=== PATIENT | male | born 1955 | race Caucasian/White ===

== ENCOUNTER → 2017-12-07 09:58 | Outpatient (CLI) | payer BC, SELFPAY ==
[2017-12-07 12:08] LABS: Hematocrit 38.4 % (40-54); Hemoglobin 12.4 g/dl (13.0-16.5); Mean Corp Hgb Conc 32.3 g/gl (32-36); Mean Corpuscular Hgb 28.9 pg (27.0-32.0); Mean Corpuscular Volume 89.5 fL (80-94); Mean Platelet Vol. 12.4 fl (6.2-12.0); Platelet Count 174 K/mm3 (150-450); RBC Distribution Width SD 45.2 fl (35.1-43.9); Red Blood Count 4.29 M/mm3 (4.6-6.2); White Blood Count 8.4 K/mm3 (4.4-11.0)
[2017-12-07 12:09] LABS: Scan Indicated on CBC? Y/N NO
[2017-12-07 12:32] LABS: ALB/GLOB Ratio 0.9 RATIO (0.9-2.4); AST(SGOT) 15 U/L (15-37); Alanine Aminotransfer ALT/SGPT 18 U/L (16-61); Albumin, Serum 3.6 g/dL (3.2-5.0); Alkaline Phosphatase 100 U/L (45-117); Anion Gap 6 (5-15); BUN 18 mg/dL (7-18); BUN/Creat Ratio 14.8 RATIO (10-20); Chloride 108 mmol/L (98-107); Cholesterol 121 mg/dL (200); Creatinine, Serum 1.22 mg/dL (0.70-1.30); EST Glomerular Filtration Rate 64 mL/min (>60); Est Glom Filt Rate - Afr Amer 77 mL/min (>60); Globulin 3.9 g/dL (2.2-4.2); Glucose 102 mg/dL (74-106); High Density Lipoprotein 29 mg/dL; PSA,Total - Annual Screen 0.93 ng/mL (0.00-4.00); Potassium 4.1 mmol/L (3.5-5.1); Protein, Total 7.5 g/dL (6.4-8.2); Sodium Level 140 mmol/L (136-145); T4 Free Direct 0.96 ng/dL (0.76-1.46); Thyroid Stim Hormone (TSH) 2.19 uIU/mL (0.358-3.74); Triglycerides 105 mg/dL; Very Low Density Lipoprotein 21 mg/dL (5-40)
== END ==
PROVIDERS: Family Provider Family Medicine; PCP Family Medicine; Visit Provider Family Medicine
DX: R94.6 Abnormal results of thyroid function studies (principal); I25.10 Atherosclerotic heart disease of native coronary artery without angina pectoris; N40.0 Benign prostatic hyperplasia without lower urinary tract symptoms; Z12.5 Encounter for screening for malignant neoplasm of prostate
CPT/HCPCS: 36415; 80053; 80061; 84153; 84439; 84443; 85027; G0103

== ENCOUNTER → 2017-12-24 16:51 | Outpatient (CLI) | payer BC, SELFPAY ==
--- NOTE | 2017-12-24 16:53 | CT_ITS ---
STUDY: CT ABDOMEN WITH CONTRAST REASON FOR EXAM: Male, 62 years old. Abdominal aortic aneurysm follow up, tobacco use, hypertension, prior CABG. RADIATION DOSAGE (If Supplied By Facility): CTDIvol = ( 7.67 ) mGy, DLP = ( 492.58 ) mGycm TECHNIQUE: Transaxial images were obtained post I.V. administration of 100mL ml of Isovue 300 contrast, and oral contrast. Sagittal and coronal images were reconstructed. Individualized dose optimization techniques were used for this CT. COMPARISON: 02/25/2016 FINDINGS: The visualized lung bases are unremarkable. The visualized portions of the heart are within normal limits. Normal liver. The gallbladder is contracted. Normal spleen. Normal pancreas. Normal bilateral adrenal glands. There is a small right renal mass measures 1.4 cm at the posterior aspect of the middle part of the right kidney may represent a neoplastic process. There is a left renal cyst measures 3.5 cm. Normal visualized stomach. Normal small intestine. Normal colon. The appendix is visualized and appears normal. There is diffuse atherosclerotic calcification of the abdominal aorta with elongation and tortuosity, there is an aortic aneurysm involving the entire abdominal aorta the suprarenal aorta measures approximately 5.2 cm in diameter. The infrarenal abdominal aorta measures approximately 4.7 cm in diameter it has increased in size since the previous study it measured previously 4.4 cm in diameter. There is right common iliac artery aneurysm measures 2.5 cm in diameter. Normal inferior vena cava. Normal retroperitoneum. Normal abdominal wall. Normal osseous structures. CT/Abdomen WITH IV Contrast IMPRESSION: There is a small right renal mass measures 1.4 cm at the posterior aspect of the middle part of the right kidney may represent a neoplastic process. There is an aortic aneurysm involving the entire abdominal aorta the suprarenal aorta measures approximately 5.2 cm in diameter. The infrarenal abdominal aorta measures approximately 4.7 cm in diameter it has increased in size since the previous study it measured previously 4.4 cm in diameter. There is right common iliac artery aneurysm measures 2.5 cm in diameter. Electronically Signed: Kimberly Echavarria MD at 7:43 EDT Tel , Service support ,
--- NOTE | 2017-12-24 16:53 | CT_ITS ---
STUDY: LOW DOSE CT LUNG CANCER SCREENING REASON FOR EXAM: Male, 62 years old. Long history of smoking. Hypertension. Abdominal aortic aneurysm RADIATION DOSAGE (If Supplied By Facility): CTDIvol = ( 3.02 ) mGy, DLP = ( 119.28 ) mGycm TECHNIQUE: No contrast was administered. Low dose technique was utilized (average mAS-38 and kVp 120). 1.25 mm axial source images with a slice interval of 1.25-mm were reconstructed in lung windows. 2.5 mm axial source images with a slice interval of 2.5-mm were reconstructed in lung windows. 5.0 mm axial source images with a slice interval of 5.0-mm were reconstructed in soft tissue windows. Nodule measured using lung windows on PACS and/or independent workstation with automated measurement of minimum and maximum diameter. Nodule measurement reported as average diameter rounded to the nearest whole number. Growth is defined as an increase ins size of greater than 1.5 mm. COMPARISON: None. NODULES: Multiple bilateral lung nodules are noted the largest measures 6 cm is in the lateral segment of the left lung lower lobe non of these nodules are calcified they most likely represent granulomas. There is no demonstrated pleural abnormality. Normal heart and pericardium. Normal mediastinum. Normal hilar regions. Normal unenhanced pulmonary arteries. Ascending aorta aneurysm measures 5.6 cm in diameter. Normal osseous structures. Suspicious mass in the right kidney measures 1.4 cm for which further evaluation by MRI is recommended. CT/Low Dose CT Lung Screening IMPRESSION: Lung-RADS category 3. Suspicious mass in the right kidney measures 1.4 cm for which further evaluation by MRI is recommended. Recommendation: Short-term follow-up in 6 months is recommended of the lung nodules. IMPORTANT NOTES FOR USE: ACR Lung-RADS Version 1.0 Assessment Categories Release Date: August 11, 2013 Category: Coded 0-4 bases on nodule(s) with highest degree of suspicion. Negative screen is defined as categories 1 and 2; a positive screen is defined as categories 3 and 4. Category 3 and 4A nodules that are unchanged on interval CT should be coded as category 2, and individuals returned to screening in 12 months. Category 4X: Category 3 or 4 nodules with additional imaging findings that increase the suspicion of lung cancer, such as spiculation, GGN that doubles in size in 1 year, enlarged lymph notes, etc. Category Modifiers: S (significant finding unrelated to lung cancer) and C (prior history of treated lung cancer) may be added to the 0-4 Lung-RADS Electronically Signed: Kimberly Echavarria MD at 8:10 EDT Tel , Service support ,
--- NOTE | 2017-12-24 16:53 | CT_ITS ---
STUDY: CT CHEST WITH CONTRAST REASON FOR EXAM: Male, 62 years old. Abdominal aortic aneurysm follow up, tobacco use, prior CABG, hx hypertension. RADIATION DOSAGE (If Supplied By Facility): CTDIvol = ( 7.67 ) mGy, DLP = ( 492.58 ) mGycm TECHNIQUE: Transaxial imaging was performed following intravenous administration of 100mL ml of Isovue 300 contrast material. Individualized dose optimization techniques were used for this CT. COMPARISON: 02/25/2016 and 05/11/2014 FINDINGS: Bilateral lung nodules are noted the largest is a subpleural nodule in the lateral basal segment of left lung lower lobe measures 6 mm have nonspecific appearance most likely represent benign granulomas. Follow-up in 6 months would be recommended to ensure stability. There is no demonstrated pleural abnormality. Normal heart and pericardium. Normal mediastinum. Normal hilar regions. Normal enhanced pulmonary arteries. There is an ascending aortic aneurysm measures 6 cm in diameter. Normal osseous structures. There is no demonstrated abnormality of the visualized upper abdomen. CT/Chest WITH Contrast IMPRESSION: There is an ascending aortic aneurysm measures 6 cm in diameter. Small bilateral lung nodules most likely represent benign granulomas. A follow-up in 6 months would be recommended to ensure stability. Electronically Signed: Kimberly Echavarria MD at 4:32 EDT Tel , Service support ,
== END ==
PROVIDERS: Family Provider Family Medicine; PCP Family Medicine; Visit Provider Family Medicine
DX: Z12.2 Encounter for screening for malignant neoplasm of respiratory organs (principal); F17.200 Nicotine dependence, unspecified, uncomplicated; Z87.891 Personal history of nicotine dependence; I71.4 Abdominal aortic aneurysm, without rupture
CPT/HCPCS: 71260; 74160; G0297; Q9967

== ENCOUNTER → 2018-07-08 14:52 | Outpatient (CLI) | payer BC, SELFPAY ==
--- NOTE | 2018-07-08 15:00 | CT_ITS ---
STUDY: CT CHEST WITH CONTRAST REASON FOR EXAM: Male, 62 years old. Abdominal aortic aneurysm. History of CABG, gallbladder and hernia repair. No signs and symptoms of the chest were provided. RADIATION DOSAGE (If Supplied By Facility): CTDIvol = ( 16.45 ) mGy, DLP = ( 935.47 ) mGycm TECHNIQUE: Transaxial imaging was performed following intravenous administration of 100ML IV Isovue 300. Coronal and sagittal reconstructions were performed. Individualized dose optimization techniques were used for this CT. COMPARISON: 12/24/2017. FINDINGS: Curvilinear scarring in the left lung base. Minimal subsegmental atelectasis in the right posterior lung base. No suspicious pulmonary nodules or infiltrates. There is no demonstrated pleural abnormality. Normal cardiac size. No pericardial fluid. Normal mediastinum. Normal hilar regions. Normal enhanced pulmonary arteries. Aneurysmal dilatation of the ascending aorta and descending thoracic aorta. Mild tortuosity of the thoracic descending thoracic aorta. The ascending aorta has a diameter of 6.1 cm. The descending thoracic aorta has a diameter of 4.8 cm. No thoracic aortic dissection. Normal osseous structures. Abdominal aortic aneurysm with a diameter of up 4.9 cm. Hypodense cysts in both kidneys. IMPRESSION: 1. Aneurysmal dilatations of the thoracic aorta and down to the abdominal aorta. This is unchanged when compared to 12/24/2017. 2. Minimal subsegmental atelectases in the right posterior lung base and minimal curvilinear scarring in the left lung base. 3. No CT evidence of thoracic aortic dissection. 4. No acute chest abnormality and no interval changes when compared to 12/24/2017. Electronically Signed: Tobias Hogan MD at 10:07 EDT , Service support , STUDY: CT ABDOMEN AND PELVIS WITH CONTRAST REASON FOR EXAM: Male, 62 years old. Abdominal aortic aneurysm. History of CABG, gallbladder and hernia repair. RADIATION DOSAGE (If Supplied By Facility): CTDIvol = ( 12.95 ) mGy, DLP = ( 935.47 ) mGycm TECHNIQUE: Transaxial images were obtained from the dome of the diaphragm to the symphysis pubis without oral contrast. 100ML IV Isovue 300 was administered. Sagittal and coronal images were reconstructed. Individualized dose optimization techniques were used for this CT. COMPARISON: CT abdomen with contrast 12/24/2017. No prior CT pelvis for comparison. FINDINGS: Minimal subsegmental atelectasis in the right posterior lung base. Curvilinear scarring in the medial aspect of the left posterior lung base. These are unchanged. Normal cardiac size. No pericardial fluid. Normal liver. Postsurgical absence of the gallbladder. Normal spleen. Normal pancreas. Normal bilateral adrenal glands. Right kidney: Small posterior hypodense cyst. No stones or hydronephrosis. Left kidney: 3.1 x 2.3 cm hypodense cyst in the lateral parenchyma of the left kidney. No stones or hydronephrosis. Normal visualized stomach. Normal small intestine. Solitary diverticulum in the lower descending colon without diverticulitis. The appendix is visualized and appears normal. Aneurysmal dilatation of the abdominal aorta. The transverse diameter of the abdominal aortic aneurysm at the level of the left renal artery origin is 5.6 cm. This includes the intramural thrombus in the right lateral wall of the abdominal aortic aneurysm. The transverse canal diameter of the infrarenal abdominal aortic aneurysm is 4.2 cm. This includes the intramural thrombus in the right lateral wall of the abdominal aortic aneurysm. Aneurysmal dilatation of the right common iliac artery with a diameter of 2.2 cm. No aortic dissection. Normal inferior vena cava. Normal retroperitoneum. Normal urinary bladder. Normal abdominal wall. Normal osseous structures. CT/Abdomen/Pelvis WITH Contrast IMPRESSION: 1. Abdominal aortic aneurysm with a transverse canal diameter at the level of the left renal artery origin of 5.6 cm. This includes the intramural thrombus in the right lateral wall of the abdominal aortic aneurysm. 2. Infrarenal abdominal aortic aneurysm with a transverse canal diameter of 4.2 cm. This includes the intramural thrombus in the right lateral wall of the abdominal aortic aneurysm. 3. Right common iliac artery aneurysm with a diameter of 2.[address] evidence of abdominal aortic dissection. 5. Solitary diverticulum in the lower descending colon without diverticulitis. 6. No significant interval change when compared to CT of the abdomen dated 12/24/2017. Electronically Signed: Tobias Hogan MD at 10:17 EDT , Service support ,
[2018-07-08 15:21] LABS: CREATININE FINGERSTICK 1.6 mg/dL (0.70-1.30)
== END ==
PROVIDERS: Family Provider Family Medicine; PCP Family Medicine; Referring Provider Family Medicine; Visit Provider Family Medicine
DX: I71.4 Abdominal aortic aneurysm, without rupture (principal); R91.8 Other nonspecific abnormal finding of lung field
CPT/HCPCS: 71260; 74177; Q9967

== ENCOUNTER 2018-12-21 08:38 | Emergency (ER) | payer BC, SELFPAY ==
[2018-12-21 08:40] VITALS: BP 121/65; PULSE 93; RESP 17; TEMP 36.4; O2SAT 95; BMI 25.8
--- NOTE | 2018-12-21 09:00 | EKG12_ITS ---
Test Reason : DYSRHYTHMIA Blood Pressure : / mmHG Vent. Rate : 089 BPM Atrial Rate : 089 BPM P-R Int : 174 ms QRS Dur : 144 ms QT Int : 428 ms P-R-T Axes : 026 020 060 degrees QTc Int : 520 ms Normal sinus rhythm Right bundle branch block Abnormal ECG Confirmed by JOSÉ HERNANDEZ ([id number]), supervising editor news reel TROY PEREZ ([id number]) on 12/30/2018 2:33:02 PM Referred By: TACO Confirmed By:JOSÉ HERNANDEZ
--- NOTE | 2018-12-21 09:01 | CT_ITS ---
We are attempting to reach an attending provider to discuss findings. An addendum with communication details will be sent when the communication is complete. STUDY: CT CHEST WITH CONTRAST REASON FOR EXAM: Male, 63 years old. Status post CABG, sternotomy dehiscence with purulent discharge. RADIATION DOSAGE (If Supplied By Facility): CTDIvol = ( 15.64 ) mGy, DLP = ( 565.15 ) mGycm TECHNIQUE: Transaxial imaging was performed following intravenous administration of 100 IV Isovue 300. Individualized dose optimization techniques were used for this CT. COMPARISON: 07/08/2018. FINDINGS: There is small tiny left apical pneumothorax. There is an infiltrate/atelectasis in the left lower lobe. There are atelectatic changes in the right lower lobe. There is small to moderate left pleural effusion. Sternal cerclage wires and vascular clips are present from a prior sternotomy and coronary artery bypass graft procedure (CABG). There is fluid in the anterior mediastinum are pockets of air in the anterior mediastinum. Normal hilar regions. Normal enhanced pulmonary arteries. There is an endoluminal aortic stent extending from the proximal aortic arch to the proximal descending thoracic aorta. There is an aneurysm of the descending thoracic aorta extending to the proximal abdominal aorta with maximum AP diameter of 5.4 cm just distal to the stent. The distal aspect of the aneurysm in the region of the abdomen is not included on this exam. There is increased density seen around the proximal abdominal aorta unchanged since the prior exam. There is increased kyphosis of the thoracic spine and mild degenerative changes. The visualized portions of the upper abdomen demonstrate otherwise partially visualized left renal cyst. CT/Chest WITH Contrast IMPRESSION: 1. Small tiny left apical pneumothorax. 2. Increased density and fluid in the anterior mediastinum with multiple pockets of air extending around the ascending thoracic aorta. In the absence of history of recent intervention, the findings are consistent with infectious process. Early abscess formation cannot be entirely excluded. 3. Status post placement of endoluminal aortic stent placement as described above. 4. Aneurysm of the descending thoracic aorta and proximal abdominal aorta essentially unchanged. 5. Mild left lower lobe infiltrate/atelectasis. 6. Moderate left pleural effusion. Electronically Signed: Damien Mora MD at 10:23 EDT Tel , Service support ,
--- NOTE | 2018-12-21 09:16 | ED.DCSUM_ITS ---
History of Present Illness Chief Complaint: Wound Check Narrative: Patient presenting due to concern for a wound infection. Patient was at [facility] the end of November for a thoracic aortic aneurysm repair. Patient states that he was discharged 2 days ago. He reports that he has been on some oral antibiotics for a potential superficial wound infection, but today he had dehiscence of the wound and a significant amount of drainage. Patient denies that there is a significant amount of pain associated with this, denies measurable fevers. Patient's daughter states that she has been carefully monitoring his temperature and he has not had any sort of febrile episodes. No nausea vomiting. Drainage is profuse and has no exacerbating relieving factors. Review of systems otherwise negative. Surgeon Dr. Carlin Past Medical History - Allergies and Home Meds Allergies/Adverse Reactions: Allergies codeine Allergy (Verified 12/21/18 08:39) Vomiting Past Medical History: - - Thoracic aortic aneurysm with recent repair Smoking Status: Former smoker Review of Systems All systems negative except as indicated General: Denies: Fever Cardiovascular: Reports: - - Chest wound dehiscence and drainage Gastrointestinal: Denies: Nausea, Vomiting Physical Exam Vital Signs/Narrative: Vital Signs Temp Pulse Resp BP Pulse Ox 12/21/18 08:40 97.6 F L 93 17 121/65 H 95 Inital Vital Signs reviewed: Yes General: Well nourished, Well developed, - - Pale and in no acute distress Head: Normocephalic, Atraumatic Eyes: Perrl, EOMI ENT: Moist mucous membranes, No rhinorrhea Neck: Supple, Nontender Cardiovascular: Regular rate, Regular rhythm, No murmurs Respiratory: No distress, CTA bilaterally, - - Examination of the patient's anterior chest shows approximately 2 to 3 cm of dehiscence of the superior portion of the patient's sternotomy wound with what appears to be bloody purulent drainage. Minimal tenderness to palpation in this area. Abdomen: Soft, Nontender, Nondistended, Normal bowel sounds Back: Nontender, Normal Inspection Extremities: Nontender Skin: Normal color, No rash Neurological: Alert, Oriented x3, Cranial nerves II-XII grossly intact, Normal Strength, Normal Sensation Psychological: Normal affect, Normal Mood Diagnostic/Tx/Re-eval - EKG Initial EKG Interpretation: - - Right bundle branch block with ventricular rate of [address] segments normal T waves no evidence of acute ischemia or arrhythmia. - Medical Decision Making Patient presented secondary to drainage from the surgical wound. IV was established labs were obtained. Patient was found to have a leukocytosis. Chemistry panel is grossly unremarkable, no lactic acidosis. CT scan of the chest was obtained with IV contrast which radiology called me and informed me that the patient appears to have evidence of a deep space surgical wound infection with mediastinitis and free air with a small apical pneumothorax. As these wounds often require operative cleanout, I contacted the facility with the patient had the surgery, the [facility], they did accept patient in transfer. Cultures were obtained patient was started on vancomycin and Zosyn at the recommendation of the [facility] physician and the patient was transferred. ED Disposition - Plan for ED Patient: Disposition: Acute Care Hospital - Other Diagnosis: deep sternal wound infection, Surgical wound infection
[2018-12-21 09:24] LABS: Hematocrit 28.6 % (40-54); Hemoglobin 9.2 g/dL (13.0-16.5); Mean Corp Hgb Conc 32.2 g/dL (32-36); Mean Corpuscular Hgb 29.4 pg (27.0-32.0); Mean Corpuscular Volume 91.4 fL (80-94); POSITIVE DIFFERENTIAL YES; Platelet Count 334 K/mm3 (150-450); RBC Distribution Width CV 14.1 % (11.6-14.6); RBC Distribution Width SD 46.7 fl (35.1-43.9); Red Blood Count 3.13 M/mm3 (4.6-6.2)
[2018-12-21 09:32] LABS: International Normalized Ratio 1.2; Prothrombin Time (Protime)PT. 15.2 SECONDS (11.7-14.9)
[2018-12-21 09:33] LABS: Partial Thromboplast Time 33.1 Seconds (24.1-36.2)
[2018-12-21 09:42] LABS: ALB/GLOB Ratio 0.6 RATIO (0.9-2.4); AST(SGOT) 41 U/L (15-37); Alanine Aminotransfer ALT/SGPT 43 U/L (16-61); Albumin, Serum 2.7 g/dL (3.2-5.0); Alkaline Phosphatase 81 U/L (45-117); Anion Gap 3 (5-15); BUN 23 mg/dL (7-18); BUN/Creat Ratio 18.4 RATIO (10-20); Calcium,Total 8.6 mg/dL (8.5-10.1); Chloride 105 mmol/L (98-107); Creatinine, Serum 1.25 mg/dL (0.70-1.30); EST Glomerular Filtration Rate 62 mL/min (>60); Est Glom Filt Rate - Afr Amer 75 mL/min (>60); Estimated Creatinine Clearance 60.83 ml/min; Globulin 4.2 g/dL (2.2-4.2); Glucose 122 mg/dL (74-106); Potassium 4.2 mmol/L (3.5-5.1); Protein, Total 6.9 g/dL (6.4-8.2); Sodium Level 135 mmol/L (136-145)
[2018-12-21 09:44] LABS: Differential Indicated MANUAL DIFF
[2018-12-21 09:47] LABS: Eosinophil 5 % (0-5); Lymphocyte 5 % (19-41); Metamyelocyte 1 % (0-1); Monocyte 7 % (0-10); Myelocyte 4 (0-0); Neutrophil-Segmented 78 % (47-70); Total Cells Counted 100 (MANUAL DIFF); Toxic Granulation 1+
[2018-12-21 09:48] LABS: Platelet Estimate ADEQUATE (ADEQ); Red Cell Morphology NORM C+C NORMAL (NORM C&C)
[2018-12-21 09:49] LABS: Absolute Lymphocyte Count 0.75 X10^3/uL (0.83-4.51); Absolute Neutrophil Count 11.7 X10^3/uL (2.0-7.7)
[2018-12-21 09:51] LABS: Lactic Acid 0.9 mmol/L (0.4-2.0)
[2018-12-21 10:07] VITALS: TEMP 37.1
[2018-12-21 10:42] VITALS: O2SAT 95
[2018-12-21 10:43] VITALS: BP 125/69; PULSE 85; RESP 23; O2SAT 97
[2018-12-21 11:18] VITALS: BP 128/78; PULSE 88; RESP 22; O2SAT 99
[2018-12-21 12:18] VITALS: BP 134/80; PULSE 84; RESP 21; TEMP 37.2; O2SAT 97
[2018-12-23 13:26] LABS: Pathologist Review Reviewed
== END 2018-12-21 13:25 | disposition short-term general hospital (02) ==
PROVIDERS: Emergency Provider Emergency Medicine; Family Provider Family Medicine; PCP Family Medicine
DX: T81.42XA Infection following a procedure, deep incisional surgical site, initial encounter (principal); Z87.891 Personal history of nicotine dependence; D72.829 Elevated white blood cell count, unspecified
CPT/HCPCS: 36415; 71260; 80053; 83605; 85025; 85610; 85730; 87040; 87070; 87077; 87186; 87205; 93005; 96365; 96367; 99285; J7040; Q9967; A4216

== ENCOUNTER → 2019-02-20 | Outpatient (CLI) | payer BC, SELFPAY ==
--- NOTE | 2019-02-20 11:43 | CR.HP_ITS ---
CR - History & Physical - General Arrival date:: 02/20/19 Arrival time:: 11:30 Date of Referral:: 12/10/18 Date of CR Evaluation:: 02/20/19 Referring Physician: DR HERNANDEZ Primary Diagnosis: CABG - History of Present Cardiac Event Onset Date: Enter Onset Date of cardiac illnesses in Comment field below Current stable Angina Pectoris:: No Acute Myocardial Infarction within 12 months:: No Coronary Artery Bypass Graft:: Yes - CABG X1 Heart valve replacement or repair:: Yes - AV REPLACEMENT PTCA or coronary stenting:: Yes Heart or Heart-Lung Transplant:: No Heart Failure EF <35%:: No Type of Symptoms:: NONE Interventions with present event:: CABG, AV REPLACMENT, ANUERYSM REPAIR Were there any complications?: POST OP STAFF INFECTION - Medications Home Medications: Ambulatory Orders Medication Instructions Recorded Hydrocodone/Acetaminophen [Vicodin 1 - 2 tab PO Q6H PRN PRN 12/21/18 5-300 mg Tablet] Lovastatin 10 mg PO QHS 12/21/18 Multivit-Min/FA/Lycopen/Lutein 1 ea PO DAILY 12/21/18 [Centrum Silver Men Tablet] Nitroglycerin (INPATIENT USE) 0.4 mg SUBLINGUAL Q5M PRN 12/21/18 [Nitrostat] aspirin 81 mg tablet,delayed 162 mg PO DAILY tab 01/13/19 release docusate sodium 100 mg capsule 100 mg PO DAILY 01/14/19 amiodarone 200 mg tablet 200 mg PO DAILY #90 tab 01/31/19 metoprolol succinate ER 25 mg 75 mg PO DAILY #270 tab 01/31/19 tablet,extended release 24 hr - Allergies Allergies/Adverse Reactions: Allergies codeine Allergy (Verified 01/14/19 13:49) Vomiting - Sleep Disorder Evaluation Hx of Sleep Apnea: No Do you snore loudly (louder than talking or can be heard through closed doors)?: No Do you often feel tired/ fatigued/ sleepy during daytime?: No Has anyone observed you stop breathing during sleep?: No History of Hypertension (for STOP score): Yes STOP Results: Negative Advanced Directives - Advanced Directives Power of Last Trimmer: Yes Living Will: Yes Advance Directives Information Provided: Yes - PT STATES HE HAS ADV DIRECTIVES ENCOURAGED TO BRING IN COPY TO [facility] RECORDS Advance Directives on File: No - PT IS NOT SURE DNR Order?:: No Past Medical History - Past Medical Illness Medical History: Past Medical History (Last Updated 01/14/19 @ 13:51 by Cheri Haji) Postoperative infection of wound of sternum (Acute) T81.49XA Pneumothorax on left (Acute) Onset Date: 12/09/18 J93.9 Postop 12/09/18 post CABG X1 and Aneurysm repair, aortic root replacement, etc. H/O ventricular fibrillation (Chronic) Onset Date: 12/09/18 Z86.79 post op 12/09/2018: it went away when balloon pump repositioned. 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 Evan Wiley, [facility]:SULLIVAN to LAD, Free VIKA to OM branch of CX; SVG to diagonal branch of LAD History of left heart catheterization (Chronic) Onset Date: 12/06/18 Z98.890 12/05/[address] Evan Wiley [facility];12/06/2018 [facility] S/P cholecystectomy (Acute) Z90.49 05/03/2017 H/O right inguinal hernia repair (Acute) Z98.890, Z87.19 History of tonsillectomy (Acute) Z98.890, Z90.89 History of aortic aneurysm repair Onset Date: 12/09/18 Z98.890, Z86.79 Right Ax cannulation, Redo Biobentall CE 27, replacement of ascending aorta and hemiarch with 30 valsalva graft, FET, Viabahn in left carotid, left SCA, CABG X 1 (SVG to PLV); Right femoral IABP insertion through cutdown per Dr. Dangelo Carlin @ [facility] Main Camput 12/09/2018 - Family History Summary Family History: Family History (Last Reviewed 01/14/19 @ 13:34 by Cheri Haji) Mother Cancer Father Heart disease Sister Heart disease Social History - Smoking History Smoking Status: Former smoker Years Smokin Packs Smoked per Day: 1 Hx Smoking Cessation Date: 12/05/15 Hx Tobacco Use: Yes - Alcohol Use Alcohol Usage: Yes - ALMOST NEVER - Substance Abuse Hx Substance Use: No - Occupation Occupation (List type of work in comments):: Employed Hours worked per day:: 10 - Hobbies, Recreation, Social Activities Hobbies: None - NONE AT THIS POINT USUALLY [employer] Recreational Activities: I cannot do any recreational activities at all Social Environment - Status Marital Status: Single - Current Living Arrangements Living Environment:: Family - YOUNGEST DAUGHTER LIVES WITH PT - Children How many children do you have?: 3 Do any of your children live nearby?: Yes - Safety Do you feel safe in your surroundings?: Yes - Assistance Do you need any assistance at home?: NONE Review of Systems - Review of Systems Hints: Right click = Denies ([place]ash). Left click = Reports ([place]) Review of Present Symptoms: Reports: Shortness of Breath with Exertion - SMALL AMT DUE TO RECOVERY, Wound Healing - EDGES WELL APPROXIMATED, WITHOUT REDNESS OR EDEMA, SCAB PRESENT ON TOP / TH, Dizziness/Lightheadedness - SINCE SURGERY HAVE HAD 2 BOUTS OF VERTIGO. NONE RECENTLY, WAS CLOSER TO TIME WHEN DISCHARGED FROM HOSPITAL, Appetite - Normal, Sleep - Normal. Denies: Shortness of Breath at Rest, PVD, Operative Discomfort, Angina, Fatigue, Heart Arrhythmi a/Irregularities - Pain Is Patient Pain Free?: Yes Risk Factor Assessment - Chief Complaint Chief Complaint: CABG - Vital Signs Temperature: 98.6 F Respiratory Rate: 16 Pulse Ox: 97 Blood Pressure: 138/84 Nailbeds:: PINK - Pulse Pulse Rhythm: Regular - Hypertension How long have you been treated?: 19 YRS On medication(s)?: YES Blood Pressure Sitting - Left Arm: 138/84 - Blood Cholesterol/Lipids Total Cholesterol (mg/dL) Goal = less than 200 mg/dL: 121 HDL Cholesterol (mg/dL) Goal = less than 40 mg/dL: 29 LDL Cholesterol (mg/dL) Goal = less than 70 mg/dL: 71 Triglycerides (mg/dL) Goal = less than 150 mg/dL: 105 - Obesity Height: 5 ft 10 in Weight:: 160 lb Weight in Pounds: 160.0 lbs Weight Source: Stated by Patient Body Mass Index (BMI): 22.9 Nutritional Referral for Obesity: No - Physical Inactivity Physical Inactivity: None - Risk Stratification Risk Guidelines: Lowest Risk: Risk Factor for Dyslipidemia, Risk Factor for Diabetes, Risk Factor for Obesity, Risk Factor for Depression, Moderate Risk: Risk Factor for Smoking, Risk Factor for Hypertension, Risk Factor for Sedentary Lifestyle - For Smoking Smoking Risk Guidelines: Smoking Low Risk: None or quit greater than 6 months ago. Smoking Moderate Risk: Smoker or quit 6 months or less ago. Smoking High Risk: Smoker - For Dyslipidemia Dyslipidemia Risk Guidelines: Low Risk: Moderate Risk: High Risk: 15-25% fat 25.1-29% fat >/= 30% fat. <7% sat fat 7-9% sat fat >9% sat fat. <150 mg chol 150-299 mg chol >/= 300 mg chol. LDL <100 LDL 100-129 LDL >/= 130. Chol/HDL ratio <5.0 Chol/HDL ratio 5.0-6.0 Chol/HDL ratio >6.0. Triglycerides <100 Triglycerides 100- 149 Triglycerides >/= 150 - For Diabetes Mellitus Diabetes Risk Guidelines: Diabetes Low Risk: HgA1c <6.5% and/or FBG <120. Diabetes Moderate Risk: HgA1c 6.6-7.9% and/or FBG 120-180. Diabetes High Risk: HgA1c >/= 8% and/or FBG >180 - For Obesity/Overweight Obesity/Overweight Risk Guidelines: Obesity Low Risk: BMI <25.0. Obesity Moderate Risk: BMI 25-29.9. Obesity High Risk: BMI >/= 30.0 - For Hypertension Hypertension Risk Guidelines: Hypertension Low Risk: Systolic <120 and Diastolic <80. Hypertension Moderate Risk: Systolic 120-139 and Diastolic 80-89. Hypertension High Risk: Systolic >/= 140 and Diastolic >/= 90 - For Sedentary Lifestyle Sedentary Lifestyle Risk Guidelines: Sedentary Lifestyle Low Risk: >/= 1,500 kcal/week. Sedentary Lifestyle Moderate Risk: 700-1,499 kcal/week. Sedentary Lifestyle High Risk: < 700 kcal/week - For Depression Depression Risk Guidelines: Depression Low Risk: Not clinically depressed. Depression Moderate Risk: Mildly depressed. Depression High Risk: Clinically depressed - Family History Family History: Family History (Last Reviewed 01/14/19 @ 13:34 by Cheri Haji) Mother Cancer Father Heart disease Sister Heart disease Motivation - Motivation to Participate On a scale of 1 to 10, how prepared are you to commit to attending program?: 10 What do you see as barriers to successfully being able to complete the program?: ONLY IF FORCED TO RETURN TO WORK EARLY What do you see as the benefits of succesfully completing the program? In other words, what do you hope to get out of participating in the program?: MAXIMUM HEALTH WITH MAXIMUM ENDURANCE Are there issues you are dealing with that will interfere with completing the program?: NONE Do you have a spouse or signficant other, family or friends who will help support you to complete the program?: DAUGHTER
--- NOTE | 2019-02-20 11:43 | CR.ITP_ITS ---
General Information - General Information Admitting Diagnosis: CABG Special Needs: NONE Oxygen: NONE - Education/Goals Barriers to Learning: None Individual Counseling: Initial Assessment: Nicotine/Smoking, High Blood Pressure, Hypertension Cardiac Rehabilitation Goals: 1. Maintain the individual as the primary focus of care. 2. To improve the patient's quality of life. 3. Identification of cardiac risk factors and provide cardiac risk factor management. 4. Enhance the psychosocial status of the patient. 5. Reconditioning enough to allow the patient to resume customary activities. 6. Control symptoms of cardiac disease Scale for measuring improvement of personal goals: Enter appropriate number in Comments. 2 = Unchanged. 3 = Slightly Better. 4 = Moderate Improvement. 5 = Met my Goal Personal Goals: Initial Assessment: Quit smoking (participate in smoking cessation, Improve energy level, Participate in home exercise program, Get back to work, or to resume activities faster, Improve knowledge of cardiac disease, Improve muscle strength and endurance, Improve diet and eating habits (eat healthier), Control risk factors (learn risk factor modification) Exercise - Initial Assessment - Visit Date of Eval: 02/20/19 - Stages of Change Stages of Change:: Action - Physician Prescribed Exercise Modalities: Treadmill, Biodyne, Airdyne, NuStep, SciFit Frequency (days/week): 3x/week for 12 weeks [36 sessions] Intensity: 60-80% age predicted maximum heart rate reserve Target Heart Rate:: 101-132 - Hypertension Do any of the following apply?: Yes, Medication Resting Blood Pressure:: 138/84 - Intervention Home Exercise/Activity Goal:: Sitting Time <3 hrs/day - Education Goals:: Warm-up, RPE JACKELYN Scale, S/S, Safe Exercise, Self-Monitoring - Exercise Program Goals Exercise Program Goals: Aerobic Activity >30 min, B/P <130/80 Nutrition - Initial Assessment - Program Goals Nutrition Program Goals: LDL <70. Total Cholesterol <200. HDL >45. Triglycerides <150. HgbA1C <7%. BMI <25 - Visit Date of Assessment:: 02/20/19 - Stages of Change Stages of Change:: Action - Lipids Total Cholesterol (mg/dL) Goal = less than 200 mg/dL: 121 HDL Cholesterol (mg/dL) Goal = less than 45 mg/dL: 29 LDL Cholesterol (mg/dL) Goal = less than 70 mg/dL: 71 Triglycerides (mg/dL) Goal = less than 150 mg/dL: 105 Lipid Medication: LOVASTATIN - Diabetes Diabetes:: No - Weight Management Height: 5 ft 10 in Weight:: 160 lb - Intervention Referral to dietitian:: No Referral to Diabetic Clinic:: No Will attend diet classes:: Yes - CR CLASSES - Education Gave educational materials for:: Signs & symptoms of hypoglycemia, Signs & symptoms of hyperglycemia, Relate diabetes to coronary artery disease, Healthy eating - PT INFORMED OF EDUCATION MATERIAL AVAILABLE ON-LINE Tobacco - Initial Assessment - Program Goals Tobacco Program Goals: Complete smoking cessation. Attend education classes. Improve Knowledge Test score - Stage of Change Stages of Change:: Action - Learning Barriers Learning Barriers: Ready to Learn - Family Support Do you have family support?: Yes - DAUGHTER - Tobacco Use Tobacco Use: Non-smoker How long ago did you quit using tobacco products?: Less than 6 months ago - QUIT NOV 2018 Years Smokin Do you use smokeless tobacco?: No - Intervention Smoking Cessation Referral:: No Individual Education/Counseling:: No Education Schedule Given:: Yes - CR CLASSES - Education Attended class for:: Treating Heart Disease, How The Heart Works, What it means to have Heart Disease, How Coronary Artery Disease is Diagnosed, Heart Procedures, What Heart Medications Do, Risk Factors & Modifications, Living an Active Life, Nutrition, Emotions & Heart Disease, Stress Management & Relaxation, Sleep Disorders & Heart Disease - HE IS PREVIOUS CR PT WHO ATTENDED CLASSES Psychosocial - Initial Assess - Target Goals Target Goals: Assess presence or absence of depression. Using a valid screening tool, maximizes coping skills. Positive support system - Stages of Change Stages of Change:: Action - Psychosocial Test Tool Used:: HANDS Depression Questionnaire - Intervention PS - Interventions: Yes Attend Stress Management Classes - CR CLASSES, Yes Uses Stress Management Skills - CR CLASSES, No Referral to Mental Health, No Referral to [facility] Case Management, No Referral to Physician - Education Gave educational materials for:: Coping techniques, Signs & symptoms of depression, Stress management, Relaxation techniques - Patient/Program Goal Preventative Medication(s):: Aspirin, Beta daniel, Statin/lipid - Assistive Devices Assistive Devices:: None Fall Risk Assessed:: Yes - PT DENIES ANY VERTIGO AT PRESENT TIME Patient Health Questionnaire Initial Assessment 1. Little interest or pleasure in doing things: Not at all 2. Feeling down, depressed, or hopeless: Not at all 3. Trouble falling or staying asleep, or sleeping too much: Not at all 4. Feeling tired or having little energy: Not at all 5. Poor appetite or overeating: Not at all 6. Feeling bad about yourself -- or that you are a failure or have let yourself or your family down: Not at all 7. Trouble concentrating on things, such as reading the newspaper or watching television: Not at all 8. Moving or speaking so slowly that other people could have noticed. Or the opposite - being so fidgety or restless that you have been moving around a lot more than usual: Not at all 9. Thoughts that you would be better off , or of hurting yourself in some way: Not at all Total Score: 0 KATHYA-Q SV Test - Statements CAD is a disease of the arteries in the heart: False Examples of risk factors for heart disease: True Angina is chest pain or discomfort: I Don't Know The benefits of resistance training include: I Don't Know Eating more meat and dairy products: True Anti-platelet medications such as aspirin are important: True The only effective way to manage stress: False An exercise warm-up slowly increases heart rate: True Prepared, processed foods usually have high sodium: False Depression is common after a heart attack: True The statin medications lower cholesterol: True To control blood pressure, lower the amount of sodium: True If someone gets chest discomfort during walking: False Transfats are partially hydrogenated vegetable oils: I Don't Know Sleep apnea that is not treated increases the risk: False To control cholesterol, one should become a vegetarian: False Someone knows if he/she is exercising at the right level: I Don't Know Diabetes cannot be prevented with exercise & health eating: False Stress is a large risk for heart attack: True A diet that can help lower blood pressure is rich in: I Don't Know - Total Score Total Correct Responses: 13 Self-Efficacy Initial Assessment We would like to know how confident you are in doing certain activities. Please select your confidence level for:: Select your confidence level for the following using the scale 1-10 where 1 is not at all confident and 10 is totally confident. Your score is the average of all 6 responses. Fatigue: How confident are you that you can keep the fatigue caused by your disease from interfering with the things you want to do? Select Number: 9 Physical Discomfort or Pain: How confident are you that you can keep the physical discomfort or pain of your disease from interfering with the things you want to do? Select Number: 10 Emotional Distress: How confident are you that you can keep the emotional distress caused by your disease from interfering with the things you want to do? Select Number: 10 Other Symptoms or Health Problems: How confident are you that you can keep other symptoms or health problems from interfering with the things you want to do? Select Number: 10 Different Tasks and Activities: How confident are you that you can do the different tasks and activities needed to manage your health condition so as to reduce your need to see a doctor? Select Number: 10 Medication: How confident are you that you can do things other than just taking medication to reduce how much your illness affects your everyday life? Select Number: 10 Total Score:: 9 Nutrition Survey - Nutrition Survey Instructions Scoring Instructions: Scoring is as follows: Yes = 1 points. No = 0 point. Patient score that is >/=12 is considered to be at potential nutritional risk and could benefit from a referral to a registered dietitian. - Nutrition Survey Initial Have you lost >10 lbs over the past 2 months without trying?: Yes Are you following a special diet at home for diabetes, low fat, or low salt?: No Are you interested in meeting with a dietitian for help understanding your diet?: No Do you eat less than 3 meals a day?: No Do you eat fatty meats (montiel, sausage, ribs, etc), fried foods, desserts, large amounts of salad dressings, margarine, butter, or cheese most days?: No Do you have food allergies? [Enter types in comment field]: No Do you eat in restaurants more than 3 times a week?: No Do you season food with salt, seasoning salt, or garlic salt?: No Do you used canned, boxed, frozen meals, or soups, seasoning packets?: Yes Total Score:: 2
[2019-02-20 12:14] VITALS: BP 138/84; RESP 16; TEMP 37; O2SAT 97; BMI 22.9
[2019-02-20 12:41] VITALS: BP 138/84
== END | disposition home or self-care (01) ==
LOC: CR 11:30
PROVIDERS: Family Provider Family Medicine; PCP Family Medicine; Referring Provider Internal Medicine Cardiovascular Disease; Visit Provider Internal Medicine Cardiovascular Disease
DX: Z95.1 Presence of aortocoronary bypass graft (principal)

== ENCOUNTER 2019-03-07 13:00 | Outpatient (RCR) | payer BC, SELFPAY ==
[2019-02-20 12:14] VITALS: BMI 22.9
== END 2019-03-15 23:59 ==
LOC: CR 13:00
PROVIDERS: Family Provider Family Medicine; PCP Family Medicine; Referring Provider Internal Medicine Cardiovascular Disease; Visit Provider Internal Medicine Cardiovascular Disease
DX: Z95.1 Presence of aortocoronary bypass graft (principal); I71.2 Thoracic aortic aneurysm, without rupture
CPT/HCPCS: 93798

== ENCOUNTER 2019-03-17 10:02 | Outpatient (RCR) | payer BC, SELFPAY ==
[2019-02-20 12:14] VITALS: BMI 22.9
--- NOTE | 2019-03-21 13:04 | PCM.CR.ITP ---
Exercise - 30-day Assessment - Visit Date of Eval: 03/21/19 Session #:: 10 - STARTED 02/24/2019 HAS NOT ATTENDED SINCE 03/07/2019 - Stages of Change Stages of Change:: Relapse - Physician Prescribed Exercise Modalities: Treadmill, Airdyne, NuStep Frequency (days/week): 0 Duration (Minutes):: Intensity: 60-80% age predicted maximum heart rate reserve METs - Progression: 0.5-1.0 MET, RPE 11-14 WEEK: 3 Target Heart Rate:: 101-132 - Hypertension Resting Blood Pressure:: 140/72 Peak Exercise Blood Pressure:: 142/80 Medication Changes:: No - Intervention Home Exercise/Activity Goal:: Sitting Time <3 hrs/day - Education Goals:: Warm-up, RPE JACKELYN Scale, S/S, Safe Exercise, Self-Monitoring - Exercise Program Goals Exercise Program Goals: Aerobic Activity >30 min Nutrition - 30-Day Assessment - Program Goals Nutrition Program Goals: LDL <70. Total Cholesterol <200. HDL >45. Triglycerides <150. HgbA1C <7%. BMI <25 - Visit Date of Eval: 03/21/19 - ATTENDED 4 OF SCHEDULED 10 SESSIONS. - Stages of Change Stages of Change:: Relapse - Lipids Has the patient seen the dietitian?: No - Diabetes Diabetes:: No - Weight Management Weight:: 174 lb 8 oz - Intervention Referral to dietitian:: No Referral to Diabetic Clinic:: No Will attend diet classes:: Yes - Education Attended class for:: Healthy eating Tobacco - Initial Assessment - Program Goals Tobacco Program Goals: Complete smoking cessation. Attend education classes. Improve Knowledge Test score - Learning Barriers Learning Barriers: Ready to Learn Tobacco - 30-Day Assessment - Program Goals Tobacco Program Goals: Complete smoking cessation. Attend education classes. Improve Knowledge Test score - Stage of Change Stages of Change:: Action - Learning Barriers Learning Barriers: Participates in education - Family Support Do you have family support?: Yes - Tobacco Use Tobacco Use: Non-smoker Do you use smokeless tobacco?: No - Intervention Smoking Cessation Referral:: No Individual Education/Counseling:: No Education Schedule Given:: Yes - Education Attended class for:: Treating Heart Disease, How The Heart Works, What it means to have Heart Disease, How Coronary Artery Disease is Diagnosed Psychosocial - Initial Assess - Target Goals Target Goals: Assess presence or absence of depression. Using a valid screening tool, maximizes coping skills. Positive support system - Psychosocial Test Tool Used:: HANDS Depression Questionnaire - Assistive Devices Fall Risk Assessed:: Yes - PT DENIES ANY VERTIGO AT PRESENT TIME Psychosocial - 30-Day Assess - Target Goals Target Goals: Assess presence or absence of depression. Using a valid screening tool, maximizes coping skills. Positive support system - Stages of Change Stages of Change:: Relapse - Psychosocial Test Tool Used:: HANDS Depression Questionnaire - Education Attended classes for:: Coping techniques, Signs & symptoms of depression, Stress management, Relaxation techniques - Patient/Program Goal Preventative Medication(s):: Aspirin, JOSY inhibitor, Clopidogrel, Beta daniel, Statin/lipid - Assistive Devices Assistive Devices:: None Fall Risk Assessed:: Yes Patient Health Questionnaire 30-Day Re-eval Assessment 1. Little interest or pleasure in doing things: Not at all - NOT COMPLETED PATIENT NOT IN ATTENDANCE Total Score: 0 Self-Efficacy 30-Day Re-eval Assessment We would like to know how confident you are in doing certain activities. Please select your confidence level for:: Select your confidence level for the following using the scale 1-10 where 1 is not at all confident and 10 is totally confident. Your score is the average of all 6 responses. Fatigue: How confident are you that you can keep the fatigue caused by your disease from interfering with the things you want to do? Select Number: 1 - NOT COMPLETED, PATIENT NOT IN ATTENDANCE. Physical Discomfort or Pain: How confident are you that you can keep the physical discomfort or pain of your disease from interfering with the things you want to do? Emotional Distress: How confident are you that you can keep the emotional distress caused by your disease from interfering with the things you want to do? Other Symptoms or Health Problems: How confident are you that you can keep other symptoms or health problems from interfering with the things you want to do? Different Tasks and Activities: How confident are you that you can do the different tasks and activities needed to manage your health condition so as to reduce your need to see a doctor? Medication: How confident are you that you can do things other than just taking medication to reduce how much your illness affects your everyday life?
[2019-03-21 13:08] VITALS: BP 140/72; BP 142/80
== END 2019-04-15 23:59 ==
LOC: CR 10:02
PROVIDERS: Family Provider Family Medicine; PCP Family Medicine; Referring Provider Internal Medicine Cardiovascular Disease; Visit Provider Internal Medicine Cardiovascular Disease
DX: Z95.1 Presence of aortocoronary bypass graft (principal); I71.2 Thoracic aortic aneurysm, without rupture
CPT/HCPCS: 93798

== ENCOUNTER → 2020-02-10 | Outpatient (CLI) | payer BC, SELFPAY ==
[2019-05-19 09:39] VITALS: BMI 27.3
[2020-02-10 15:36] LABS: ALB/GLOB Ratio 0.8 RATIO (0.9-2.4); AST(SGOT) 18 U/L (15-37); Alanine Aminotransfer ALT/SGPT 24 U/L (16-61); Albumin, Serum 3.7 g/dL (3.2-5.0); Alkaline Phosphatase 109 U/L (45-117); Anion Gap 4 (5-15); BUN 18 mg/dL (7-18); BUN/Creat Ratio 12.6 RATIO (10-20); Calcium,Total 9.4 mg/dL (8.5-10.1); Chloride 107 mmol/L (98-107); Cholesterol 173 mg/dL (200); Creatinine, Serum 1.43 mg/dL (0.70-1.30); EST Glomerular Filtration Rate 53 mL/min (>60); Est Glom Filt Rate - Afr Amer 64 mL/min (>60); Globulin 4.6 g/dL (2.2-4.2); Glucose 83 mg/dL (74-106); High Density Lipoprotein 33 mg/dL; PSA,Total - Annual Screen 2.19 ng/mL (0.00-4.00); Potassium 4.2 mmol/L (3.5-5.1); Protein, Total 8.3 g/dL (6.4-8.2); Sodium Level 138 mmol/L (136-145); Thyroid Stim Hormone (TSH) 8.52 uIU/mL (0.358-3.74); Triglycerides 306 mg/dL; Very Low Density Lipoprotein 61 mg/dL (5-40)
== END | disposition home or self-care (01) ==
LOC: MFPLAB 11:48
PROVIDERS: PCP Family Medicine; Referring Provider Family Medicine; Visit Provider Family Medicine
DX: I25.10 Atherosclerotic heart disease of native coronary artery without angina pectoris (principal); R94.6 Abnormal results of thyroid function studies; Z12.5 Encounter for screening for malignant neoplasm of prostate
CPT/HCPCS: 36415; 80053; 80061; 84153; 84443; G0103

== ENCOUNTER → 2021-11-03 | Outpatient (CLI) | payer MEDICARE, SELFPAY ==
[2021-11-03 15:17] LABS: Hematocrit 38.4 % (40-54); Hemoglobin 11.7 g/dL (13.0-16.5); Mean Corp Hgb Conc 30.5 g/dL (32-36); Mean Corpuscular Volume 88.7 fL (80-94); Mean Platelet Vol. 11.9 fl (6.2-12.0); Platelet Count 214 K/mm3 (150-450); RBC Distribution Width CV 14.6 % (11.6-14.6); RBC Distribution Width SD 47.6 fl (35.1-43.9); Red Blood Count 4.33 M/mm3 (4.6-6.2)
[2021-11-03 15:38] LABS: ALB/GLOB Ratio 0.8 RATIO (0.9-2.4); AST(SGOT) 14 U/L (15-37); Alanine Aminotransfer ALT/SGPT 20 U/L (16-61); Albumin, Serum 3.6 g/dL (3.2-5.0); Alkaline Phosphatase 104 U/L (45-117); Anion Gap 4 (5-15); BUN 16 mg/dL (7-18); BUN/Creat Ratio 11.3 RATIO (10-20); Calcium,Total 9.6 mg/dL (8.5-10.1); Chloride 107 mmol/L (98-107); Cholesterol 159 mg/dL (200); Creatinine, Serum 1.42 mg/dL (0.70-1.30); EST Glomerular Filtration Rate 53 mL/min (>60); Est Glom Filt Rate - Afr Amer 64 mL/min (>60); Free T3 2.3 pg/mL (2.18-3.98); Globulin 4.4 g/dL (2.2-4.2); Glucose 82 mg/dL (74-106); High Density Lipoprotein 30 mg/dL; PSA,Total - Annual Screen 1.63 ng/mL (0.00-4.00); Potassium 4.4 mmol/L (3.5-5.1); Sodium Level 139 mmol/L (136-145); T4 Free Direct 1.24 ng/dL (0.76-1.46); Thyroid Stim Hormone (TSH) 5.74 uIU/mL (0.358-3.74); Triglycerides 295 mg/dL; Very Low Density Lipoprotein 59 mg/dL (5-40)
[2021-11-04 11:12] LABS: Hepatitis C Antibody Non-Reactive (Nonreactive)
== END | disposition home or self-care (01) ==
LOC: MFPLAB 11:36
PROVIDERS: PCP Family Medicine; Referring Provider Family Medicine; Visit Provider Family Medicine
DX: I25.10 Atherosclerotic heart disease of native coronary artery without angina pectoris (principal); Z11.59 Encounter for screening for other viral diseases; N40.0 Benign prostatic hyperplasia without lower urinary tract symptoms; Z12.5 Encounter for screening for malignant neoplasm of prostate; E03.9 Hypothyroidism, unspecified
CPT/HCPCS: 36415; 80053; 80061; 84153; 84439; 84443; 84481; 85027; 86803; G0103

== ENCOUNTER → 2022-08-17 | Outpatient (CLI) | payer MEDICARE, SELFPAY ==
[2022-08-17 17:41] LABS: Hematocrit 36.9 % (40-54); Hemoglobin 11.7 g/dL (13.0-16.5); Mean Corp Hgb Conc 31.7 g/dL (32-36); Mean Corpuscular Hgb 27.6 pg (27.0-32.0); Mean Platelet Vol. 11.5 fl (6.2-12.0); Platelet Count 246 K/mm3 (150-450); RBC Distribution Width CV 13.9 % (11.6-14.6); RBC Distribution Width SD 44.2 fl (35.1-43.9); Red Blood Count 4.24 M/mm3 (4.6-6.2); White Blood Count 10.4 K/mm3 (4.4-11.0)
[2022-08-17 18:23] LABS: Vitamin B12 430 pg/mL (211-911); Vitamin D,25 Hydroxy 46.7 ng/mL
[2022-08-17 18:37] LABS: ALB/GLOB Ratio 0.8 RATIO (0.9-2.4); AST(SGOT) 21 U/L (15-37); Alanine Aminotransfer ALT/SGPT 21 U/L (16-61); Albumin, Serum 3.5 g/dL (3.2-5.0); Alkaline Phosphatase 122 U/L (45-117); Anion Gap 7 (5-15); BUN 23 mg/dL (7-18); BUN/Creat Ratio 14.1 RATIO (10-20); Calcium,Total 9.7 mg/dL (8.5-10.1); Chloride 109 mmol/L (98-107); Creatinine, Serum 1.63 mg/dL (0.70-1.30); EST Glomerular Filtration Rate 45 mL/min (>60); Est Glom Filt Rate - Afr Amer 54 mL/min (>60); Globulin 4.4 g/dL (2.2-4.2); Glucose 98 mg/dL (74-106); Potassium 4.6 mmol/L (3.5-5.1); Protein, Total 7.9 g/dL (6.4-8.2); Sodium Level 142 mmol/L (136-145); T4 Free Direct 1.45 ng/dL (0.76-1.46); Thyroid Stim Hormone (TSH) 0.12 uIU/mL (0.358-3.74)
[2022-08-22 16:09] LABS: PROEL- A/G Ratio 0.9 (0.7-1.7); PROEL- Albumin 3.4 g/dL (2.9-4.4); PROEL- Alpha-1 Globulin 0.3 g/dL (0.0-0.4); PROEL- Beta Globulin 1.2 g/dL (0.7-1.3); PROEL- Gamma Globulin 1.2 g/dL (0.4-1.8); PROEL- Globulin, Total 3.7 g/dL (2.2-3.9); PROEL- TOTAL PROTEIN 7.1 g/dL (6.0-8.5)
== END | disposition home or self-care (01) ==
PROVIDERS: PCP Family Medicine; Visit Provider Family Medicine
DX: R53.83 Other fatigue (principal); E03.9 Hypothyroidism, unspecified
CPT/HCPCS: 36415; 80053; 82306; 82607; 84165; 84439; 84443; 85027

== ENCOUNTER → 2022-10-26 | Outpatient (CLI) | payer MEDICARE, SELFPAY ==
[2022-10-26 18:28] LABS: ALB/GLOB Ratio 0.8 RATIO (0.9-2.4); AST(SGOT) 19 U/L (15-37); Alanine Aminotransfer ALT/SGPT 17 U/L (16-61); Albumin, Serum 3.6 g/dL (3.2-5.0); Alkaline Phosphatase 114 U/L (45-117); Anion Gap 6 (5-15); BUN 22 mg/dL (7-18); BUN/Creat Ratio 12.6 RATIO (10-20); Calcium,Total 9.6 mg/dL (8.5-10.1); Chloride 107 mmol/L (98-107); Creatinine, Serum 1.74 mg/dL (0.70-1.30); EST Glomerular Filtration Rate 42 mL/min (>60); Est Glom Filt Rate - Afr Amer 50 mL/min (>60); Globulin 4.6 g/dL (2.2-4.2); Glucose 81 mg/dL (74-106); Potassium 4.7 mmol/L (3.5-5.1); Protein, Total 8.2 g/dL (6.4-8.2); Sodium Level 139 mmol/L (136-145); T4 Free Direct 1.38 ng/dL (0.76-1.46); Thyroid Stim Hormone (TSH) 3.56 uIU/mL (0.358-3.74)
[2022-10-30 16:08] LABS: PROEL- A/G Ratio 0.9 (0.7-1.7); PROEL- Albumin 3.6 g/dL (2.9-4.4); PROEL- Alpha-1 Globulin 0.3 g/dL (0.0-0.4); PROEL- Alpha-2 Globulin 1.1 g/dL (0.4-1.0); PROEL- Beta Globulin 1.2 g/dL (0.7-1.3); PROEL- Gamma Globulin 1.3 g/dL (0.4-1.8); PROEL- Globulin, Total 3.8 g/dL (2.2-3.9); PROEL- TOTAL PROTEIN 7.4 g/dL (6.0-8.5)
== END | disposition home or self-care (01) ==
LOC: MFPLAB 14:19
PROVIDERS: PCP Family Medicine; Referring Provider Family Medicine; Visit Provider Family Medicine
DX: N28.9 Disorder of kidney and ureter, unspecified (principal); E03.9 Hypothyroidism, unspecified
CPT/HCPCS: 36415; 80053; 84165; 84439; 84443; 86038

== ENCOUNTER 2022-11-09 15:18 | Emergency (ER) | payer MEDICARE, SELFPAY ==
[2022-11-09] VITALS (10 sets, daily range): BP systolic 145–163; BP diastolic 87–109; PULSE 64–88; RESP 14–22; TEMP 36.1; O2SAT 98–99; BMI 28.2
--- NOTE | 2022-11-09 15:22 | EKG12_ITS ---
Test Reason : Blood Pressure : / mmHG Vent. Rate : 079 BPM Atrial Rate : 079 BPM P-R Int : 148 ms QRS Dur : 144 ms QT Int : 422 ms P-R-T Axes : 058 074 088 degrees QTc Int : 483 ms Normal sinus rhythm Right bundle branch block Abnormal ECG Confirmed by WILLA GALAVIZ, AMY ([id number]), photo editor TRUNG VARGHESE ([id number]) on 11/10/2022 9:15:52 AM Referred By: QUIQUE Confirmed By:AMY CROUCH MD
--- NOTE | 2022-11-09 15:25 | NURSING ---
CALLED FOR [employer]. TALKED TO YOLANDA
--- NOTE | 2022-11-09 15:26 | EX.ED.DYSGE1 ---
HPI History of Present Illness Chief Complaint: General Illness Detail of Chief Complaint: Leaking thoracic endoluminal stent graft aortic arch and 8.6 cm abdominal a Onset/Context/Timing Onset: - (Unknown) Context: - (Unknown) Timing: - (Unknown) Current Severity: Severe Maximum Severity: Severe Narrative Narrative: Patient is a 67-year-old male who had a CTA of the chest abdomen pelvis because of a palpable abdominal mass. We were contacted by radiology and the CTA of the chest abdomen pelvis reveals a endoluminal stent graft of the arch as well as the distal portion of the descending thoracic aorta and proximal portion of the descending thoracic aorta. There is evidence of endoluminal stent graft leak along the medial aspect of the aortic arch. There is evidence of a subacute hematoma. The proximal portion of the descending thoracic aorta is aneurysmal and dilates to 6.4 cm. This extends down into the distal thoracic cord at the level of the thoracal abdominal junction. This measures 5.5 cm. Patient also has an 8.6 cm abdominal aortic aneurysm. There is evidence of a mural thrombus. Of note patient had declining renal function reviewing prior studies. Presently patient denies shortness of breath, lightheadedness, chest or back pain. Patient does have history of hypertension. Patient states he is compliant with meds. He had 2 pieces of toast at 10 AM and couple coffee at 1430. Prior similar symptoms: Yes Recent Illness/Hospitalization: No PFSH [facility] Medical History (Updated 11/09/22 @ 15:[address] 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 Ascending aortic aneurysm Carotid artery disease Coronary arteriosclerosis in [place] artery Essential hypertension H/O ventricular fibrillation (12/09/18) History of non-ST elevation myocardial infarction (NSTEMI) (12/05/06) Hyperlipidemia Nonrheumatic aortic (valve) insufficiency Pneumothorax on left (12/09/18) Postoperative infection of wound of sternum Right bundle branch block Home Medications lovastatin 10 mg tablet 10 mg PO QHS 12/21/18 [History Last Taken Unknown] [id number]-[id number]-[id number] 300 mcg-K 60 mcg-lycop 600 mcg-lutein 300 mcg tablet 1 ea PO DAILY 12/21/18 [History Last Taken Unknown] nitroglycerin 0.4 mg sublingual tablet 0.4 mg sublingual Q5M PRN Chest Pain 12/21/18 [History Last Taken Unknown] aspirin 81 mg tablet,delayed release (Adult Aspirin Regimen) 162 mg PO DAILY 01/13/19 [History Last Taken Unknown] amiodarone 200 mg tablet 200 mg PO DAILY #90 tabs 01/31/19 [Rx Last Taken Unknown] metoprolol succinate 25 mg tablet,extended release 24 hr 75 mg (3 x 25 mg) PO DAILY #270 tabs 01/31/19 [Rx Last Taken Unknown] Allergy/AdvReac Type Severity Reaction Status Date / Time codeine Allergy Vomiting Verified 11/09/22 15:22 Family History Mother Cancer Father Heart disease Sister Heart disease Surgical History (Updated 11/09/22 @ 15:[address] Stepan Bailon MD) H/O right inguinal hernia repair History of aortic aneurysm repair (12/09/18) History of left heart catheterization (12/06/18) History of tonsillectomy S/P CABG x 3 S/P cholecystectomy Sternal wound dehiscence (12/21/18) Social History Smoking Status: Former smoker alcohol intake: never ROS ROS ED Constitutional Constitutional ED: Denies chills, fever(s), subjective, sweats or weight loss Eyes Eyes: Denies blurry vision, change in vision or diplopia ENT ENT ED: Denies ear pain, rhinorrhea or sore throat Cardiovascular Cardiovascular: Denies chest pain, orthopnea, palpitations, paroxysmal nocturnal dyspnea or racing heartbeat Respiratory/Chest Respiratory/Chest: Denies cough, dyspnea, dyspnea on exertion, orthopnea or paroxysmal nocturnal dyspnea Gastrointestinal Gastrointestinal: Denies abdominal pain, melena, nausea or vomiting Genitourinary Genitourinary ED: Denies dysuria, hematuria or urinary frequency Musculoskeletal Musculoskeletal: Denies arthralgias, back pain or myalgias Integumentary Denies abscess or rash Neurologic Neurologic: Denies headache(s), paresthesias or weakness Endocrine Endocrinology: Denies cold intolerance or heat intolerance Hematologic/Lymphatic Hematologic/Lymphatic: Reports systems reviewed and no addt'l complaints, except as documented EXAM Physical Exam Const Vital Signs: 11/09/22 15:18 Temperature 97 F L Temperature Source Temporal Pulse Rate 88 Respiratory Rate 20 H Blood Pressure 161/109 H Blood Pressure Mean 126 Pulse Ox 98 Oxygen Delivery Method Room Air Positive well nourished, well developed and obese General Appearance ED: well developed Nutritional Appearance: obese HEENT Reports moist mucous membranes HEENT Narrative: Head is atraumatic normocephalic Eyes PERRL and EOMs intact bilaterally Neck no lymphadenopathy, supple and no JVD Chest Wall inspection of chest normal and palpation of chest normal Resp normal respiratory effort and clear to auscultation bilaterally Cardio regular rate, regular rhythm, S1 normal heart sound, S2 normal heart sound and no murmurs GI normal to inspection, nondistended, normoactive bowel sounds, non-tender and non-distended GI Narrative: Patient has a pulsatile abdominal mass. There is no abdominal bruit. Back/Spine no CVA tenderness Cervical Spine: Negative for cervical spine tenderness Thoracic Spine / Upper Back: Negative for thoracic spinal tenderness Lumbar Spine / Lower Back: Negative for lumbar spinal tenderness Extremity normal to inspection Neuro oriented x3, CN's II-XII intact bilaterally and no sensory deficits noted Sensorium / Orientation: alert Psych mental status grossly normal Skin no rashes or lesions noted MDM MDM MDM Narrative Medical decision making narrative: After reviewing films's x-ray was asked to contact the otologic number. Spoke with the nurse associated with [employer]. Spoke with the cardiothoracic surgeon and the laboratory geneticist at the [facility]. Patient was excepted by Dr. SANCHEZ. History & Record Review Discussion w/independent historian: Patient EKG Initial EKG: Attestation: I personally reviewed and interpreted this EKG as follows: Interpretation: Sinus Rhythm (Rate is 79. There is evidence of right bundle branch block. The right bundle jacqueline block is old. WI interval is 148 ms. Cures duration 144 ms. QT duration 422 ms. [place] is normal) Critical Care Time Critical Care Time: Yes Critical care time (excluding procedures): 30-74 minutes (32), Including time spent: (History, physical, documentation, review of prior records, discussion with radiologist, discussion with transfer line, discussion with cardiothoracic surgeon and surgical laboratory geneticist at [facility].), Discussing w/Patient &/or Family/Dough Puncher, Discussing w/Consultants, Arranging Admission or Transfer and Performing Direct Patient Care at Bedside Discharge Plan Triage Chief Complaint: General Illness ED Provider: Bailon,Stepan Dx/Rx/DC Orders Clinical Impression: Pseudoaneurysm of aortic jump graft, S/P CABG x 3, Nonrheumatic aortic (valve) insufficiency, Hyperlipidemia, Abdominal aortic aneurysm (AAA) greater than 5.5 cm in diameter in male, Hypertension Prescriptions: No Action aspirin [Adult Aspirin Regimen] 81 mg tablet,delayed release (DR/EC) 162 mg PO DAILY lovastatin 10 MG tablet 10 mg PO QHS nitroglycerin 0.4 MG tablet, sublingual 0.4 mg sublingual Q5M PRN (Reason: Chest Pain) [id number] 1 EACH tablet 1 ea PO DAILY amiodarone 200 mg tablet 200 mg PO DAILY Qty: 90 3RF metoprolol succinate 25 mg tablet extended release 24 hr 75 mg PO DAILY Qty: 270 3RF Primary Care Provider: Shane Ye Referrals: Shane Ye MD [Primary Care Provider] - Disposition Disposition: Acute Care Hospital Discharge Location: [facility]
[2022-11-09 15:33] LABS: Absolute Lymphocyte Count 3.94 X10^3/uL (0.83-4.51); Absolute Neutrophil Count 5.2 X10^3/uL (2.0-7.7); Basophil# 0.04 X10^3/uL; Basophil% 0.4 % (0-1); Eosinophil# 0.28 X10^3/uL; Eosinophils% 2.7 % (0-5); Hematocrit 37.3 % (40-54); Hemoglobin 11.5 g/dL (13.0-16.5); Lymphocyte # 3.94 X10^3/ul (0.83-4.51); Lymphocyte % 37.5 % (19-41); Mean Corp Hgb Conc 30.8 g/dL (32-36); Mean Corpuscular Hgb 27.3 pg (27.0-32.0); Mean Corpuscular Volume 88.4 fL (80-94); Mean Platelet Vol. 10.8 fl (6.2-12.0); Monocyte# 1.01 X10^3/uL; Monocyte% 9.6 % (0-10); NRBC Flagged by Analyzer 0 % (0-5); Neutrophil # 5.17 X10^3/uL (2.7-7.7); Neutrophil % 49.1 % (47-70); Platelet Count 237 K/mm3 (150-450); RBC Distribution Width CV 14.3 % (11.6-14.6); RBC Distribution Width SD 45.8 fl (35.1-43.9); Red Blood Count 4.22 M/mm3 (4.6-6.2); White Blood Count 10.5 K/mm3 (4.4-11.0)
--- NOTE | 2022-11-09 15:36 | ED.RN ---
PER LEI SYS BP GOAL OF 110 WITH A HR OF 55
[2022-11-09 15:45] LABS: Prothrombin Time (Protime)PT. 13.5 SECONDS (11.7-14.9)
[2022-11-09 15:46] LABS: Partial Thromboplast Time 29.5 Seconds (24.1-36.2)
[2022-11-09 15:50] LABS: Anion Gap 8 (5-15); BUN 17 mg/dL (7-18); BUN/Creat Ratio 10.2 RATIO (10-20); Calcium,Total 9.4 mg/dL (8.5-10.1); Chloride 104 mmol/L (98-107); Creatinine, Serum 1.66 mg/dL (0.70-1.30); EST Glomerular Filtration Rate 44 mL/min (>60); Est Glom Filt Rate - Afr Amer 53 mL/min (>60); Estimated Creatinine Clearance 43.37 ml/min; Glucose 101 mg/dL (74-106); Potassium 4.4 mmol/L (3.5-5.1); Sodium Level 137 mmol/L (136-145)
--- NOTE | 2022-11-09 16:14 | ED.RN ---
[facility] stopped labetolol infusion and switched pt. to nipride drip.
--- NOTE | 2022-11-09 16:24 | ED.RN ---
Atempted to call report to pt. assigned unit. On hold for 11 minutes. Will attempt to call back.
== END 2022-11-09 16:29 | disposition short-term general hospital (02) ==
PROVIDERS: Emergency Provider Emergency Medicine; PCP Family Medicine; Visit Provider Emergency Medicine
DX: T82.511A Breakdown (mechanical) of surgically created arteriovenous shunt, initial encounter (principal); I71.40 Abdominal aortic aneurysm, without rupture, unspecified; I71.23 Aneurysm of the descending thoracic aorta, without rupture; I10 Essential (primary) hypertension; Z87.891 Personal history of nicotine dependence; I25.10 Atherosclerotic heart disease of native coronary artery without angina pectoris; I35.1 Nonrheumatic aortic (valve) insufficiency; Z95.1 Presence of aortocoronary bypass graft; E78.5 Hyperlipidemia, unspecified; E66.9 Obesity, unspecified; Y71.8 Miscellaneous cardiovascular devices associated with adverse incidents, not elsewhere classified
CPT/HCPCS: 80048; 85025; 85610; 85730; 93005; 96365; 99285; J7050; A4216

== ENCOUNTER → 2022-11-09 | Outpatient (CLI) | payer MEDICARE, SELFPAY ==
--- NOTE | 2022-11-09 13:51 | US_ITS ---
STUDY: RENAL ULTRASOUND - COMPLETE REASON FOR EXAM: Male, 67 years old. Decreased kidney function TECHNIQUE: Ultrasound evaluation of the kidneys was performed with real-time and static kumar-scale imaging. COMPARISON: None. FINDINGS: RIGHT KIDNEY: Normal location of the right kidney, which is normal in size. The right kidney measures 10 cm x 4.5 cm x 4.7 cm. There is a normal cortex of the right kidney. The renal cortex measures 1.7 cm. There is no right renal mass or cyst. There are no right renal calculi. There is no right hydronephrosis. DISTAL RIGHT URETER: There is non-visualization of the distal right ureter. There is no demonstrated right ureterovesical junction calculus. There is no demonstrated right ureteral jet. LEFT KIDNEY: Normal location of the left kidney, which is normal in size. The left kidney measures 10.5 cm x 5.5 cm x 5.8 cm. There is a normal cortex of the left kidney. The renal cortex measures 1.6 cm. There is no left renal mass or cyst. There is a 3.9 cm x 3.3 cm x 2.3 cm cyst in the left kidney. There is no left hydronephrosis. DISTAL LEFT URETER: There is non-visualization of the distal left ureter. There is no demonstrated left ureterovesical junction calculus. There is no demonstrated left ureteral jet. BLADDER: The bladder is not full enough for assessment. US/Kidney and Bladder IMPRESSION: 3.9 cm x 3.3 cm x 2.3 cm cyst in the left kidney. Electronically Signed: Hollis Barksdale MD at 15:25 EDT ,
--- NOTE | 2022-11-09 13:51 | CT_ITS ---
INDICATION: Abdominal aortic aneurysm EXAMINATION: CTA CHEST, ABDOMEN AND PELVIS WITH CONTRAST - TECHNIQUE: A CTA of the chest, abdomen, and pelvis is obtained with sagittal and coronal reconstructed MIP views. Three-dimensional surface rendered sequence of the thoracic and abdominal aorta was obtained. A radiation dose optimization technique was used for this scan. 100 mL of Isovue-370. Oral contrast: None. COMPARISON: Comparison is made with prior study of the CT chest dated December 21, 2018. FINDINGS: CT CHEST: THORACIC AORTA: The patient is status post endoluminal stent grafting of the aortic arch as well as the distal portion of the descending thoracic aorta and proximal portion of the descending thoracic aorta. There now is evidence of endoluminal stent graft leakage along the medial aspect of the aortic arch. There is evidence of a periaortic subacute hematoma. The proximal portion of the descending thoracic aorta is aneurysmally dilated with a transverse dimension of 6.4 cm. This extends down into the distal thoracic cord at the level of the thoracoabdominal junction. At that level, it measures 5.5 cm. ABDOMINAL AORTA: There is evidence of abdominal aortic aneurysm with thick calcification of the aortic wall. There is evidence of a mural thrombus. The transverse dimension of the abdominal aortic aneurysm measures 8.6 cm. There is dense calcification of both common iliac arteries and the mild dilatation of the right common iliac artery with a transverse dimension of 2 cm. LUNGS: The lungs are well-expanded without acute or chronic changes. No effusions or pneumothorax. MEDIASTINUM: The thyroid gland is normal. No mediastinal or hilar adenopathy. HEART: Heart is normal size. No pericardial effusion. No CAD. CT ABDOMEN AND PELVIS: LIVER: The liver enhances homogeneously. No masses identified. GALLBLADDER: The CBD is normal. Normal gallbladder. SPLEEN: Normal. PANCREAS: No masses or inflammation. ADRENAL GLANDS: Normal. KIDNEYS AND URETERS: The kidneys both enhance appropriately. There are normal size and shape. No hydronephrosis or nephrolithiasis. No renal masses or cysts. STOMACH: Normal. SMALL BOWEL: No abnormal distention of the small bowel. MESENTERY: No mesenteric inflammation. No ascites. COLON: No significant diverticulosis, masses or inflammation. The colon otherwise is normal. There is a large fatty ileocecal valve. APPENDIX: The appendix is visualized and normal. IVC: Normal. RETROPERITONEUM: No retroperitoneal lymphadenopathy. PELVIC STRUCTURES: Bladder wall thickening. Prostatic enlargement. SOFT TISSUES ABDOMEN: The anterior abdominal wall is normal. SOFT TISSUE CHEST: The extrathoracic soft tissues are normal. BONES: Degenerative changes of the lumbar spine. CT/CTA Chst, Abd, Pel W and/or WO IMPRESSION: Endoluminal stent grafting of the aortic arch with evidence of a leak in the periaortic thrombus as described. 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 Aneurysmal dilatation of the aorta as described. Electronically Signed: Hollis Barksdale MD at 14:44 EDT ,
== END | disposition home or self-care (01) ==
LOC: CT 13:50
PROVIDERS: PCP Family Medicine; Referring Provider Family Medicine; Visit Provider Family Medicine
DX: I71.40 Abdominal aortic aneurysm, without rupture, unspecified (principal)
CPT/HCPCS: 71275; 74174; 76770; Q9967

== ENCOUNTER → 2024-01-17 | Outpatient (CLI) | payer MEDICARE, SELFPAY ==
[2024-01-17 18:02] LABS: Hematocrit 38.3 % (40-54); Hemoglobin 11.7 g/dL (13.0-16.5); Mean Corp Hgb Conc 30.5 g/dL (32-36); Mean Corpuscular Hgb 25.9 pg (27.0-32.0); Mean Corpuscular Volume 84.7 fL (80-94); Mean Platelet Vol. 10.7 fl (6.2-12.0); Platelet Count 272 K/mm3 (150-450); RBC Distribution Width SD 43.5 fl (35.1-43.9); Red Blood Count 4.52 M/mm3 (4.6-6.2); White Blood Count 9.8 K/mm3 (4.4-11.0)
[2024-01-17 18:34] LABS: ALB/GLOB Ratio 0.7 RATIO (0.9-2.4); AST(SGOT) 15 U/L (15-37); Alanine Aminotransfer ALT/SGPT 16 U/L (16-61); Albumin, Serum 3.6 g/dL (3.2-5.0); Alkaline Phosphatase 106 U/L (45-117); Anion Gap 6 (5-15); BUN 15 mg/dL (7-18); BUN/Creat Ratio 10.9 RATIO (10-20); Calcium,Total 10.1 mg/dL (8.5-10.1); Chloride 102 mmol/L (98-107); Cholesterol 149 mg/dL (200); Creatinine, Serum 1.38 mg/dL (0.70-1.30); EST Glomerular Filtration Rate 54 mL/min (>60); Est Glom Filt Rate - Afr Amer 66 mL/min (>60); Globulin 5.1 g/dL (2.2-4.2); Glucose 93 mg/dL (74-106); High Density Lipoprotein 35 mg/dL; PSA,Total - Annual Screen 1.38 ng/mL (0.00-4.00); Potassium 4.4 mmol/L (3.5-5.1); Protein, Total 8.7 g/dL (6.4-8.2); Sodium Level 136 mmol/L (136-145); Triglycerides 156 mg/dL; Very Low Density Lipoprotein 31 mg/dL (5-40)
== END | disposition home or self-care (01) ==
LOC: MFPLAB 14:14
PROVIDERS: PCP Family Medicine; Referring Provider Family Medicine; Visit Provider Family Medicine
DX: N40.0 Benign prostatic hyperplasia without lower urinary tract symptoms (principal); D64.9 Anemia, unspecified; I25.10 Atherosclerotic heart disease of native coronary artery without angina pectoris; Z12.5 Encounter for screening for malignant neoplasm of prostate
CPT/HCPCS: 36415; 80053; 80061; 84153; 84443; 85027; G0103

== ENCOUNTER → 2024-01-21 | Outpatient (CLI) | payer MEDICARE, SELFPAY ==
[2024-01-24 16:10] LABS: PROEL- A/G Ratio 0.8 (0.7-1.7); PROEL- Albumin 3.4 g/dL (2.9-4.4); PROEL- Alpha-1 Globulin 0.4 g/dL (0.0-0.4); PROEL- Alpha-2 Globulin 1.2 g/dL (0.4-1.0); PROEL- Beta Globulin 1.3 g/dL (0.7-1.3); PROEL- Gamma Globulin 1.4 g/dL (0.4-1.8); PROEL- Globulin, Total 4.3 g/dL (2.2-3.9); PROEL- TOTAL PROTEIN 7.7 g/dL (6.0-8.5); PROEL-M-Spike Not Observed g/dL (Not Observed); PROELU- Albumin, Urine 36.9 % (.); PROELU- Alpha-1-Globulin,Ur 5.1 % (.); PROELU- Alpha-2-Globulin,Ur 19.3 % (.); PROELU- Beta Globulin, Ur 23.8 % (.); PROELU- Gamma Globulin, Ur 14.8 % (.); Total Protein, Ur 26.2 mg/dL (Not Estab.)
== END | disposition home or self-care (01) ==
PROVIDERS: PCP Family Medicine; Referring Provider Family Medicine; Visit Provider Family Medicine
DX: R77.9 Abnormality of plasma protein, unspecified (principal)
CPT/HCPCS: 36415; 84165; 84166

== ENCOUNTER 2024-06-06 15:10 | Emergency (ER) | payer MEDICARE, SELFPAY ==
[2024-06-06] VITALS (34 sets, daily range): BP systolic 98–152; BP diastolic 66–103; PULSE 72–116; RESP 15–31; TEMP 36.5–37.2; O2SAT 97–100; BMI 25.2
--- NOTE | 2024-06-06 15:32 | EKG12_ITS ---
Test Reason : WEAKNESS Blood Pressure : */* mmHG Vent. Rate : 89 BPM Atrial Rate : 89 BPM P-R Int : 124 ms QRS Dur : 136 ms QT Int : 386 ms P-R-T Axes : 62 71 71 degrees QTcB Int : 469 ms Normal sinus rhythm Right bundle branch block Abnormal ECG Confirmed by Stefan Foster ([id number]), legal editor JESSI ROMERO ([id number]) on 06/09/2024 9:55:53 AM Referred By: Confirmed By: Stefan Foster
--- NOTE | 2024-06-06 15:51 | EX.ED.DYSGE1 ---
HPI History of Present Illness Chief Complaint: Weakness Detail of Chief Complaint: Weakness that started 2 to 3 weeks ago Informant: patient Onset/Context/Timing Onset: Weeks Context: Sudden Onset Timing: Continuous Quality: Generalized weakness, loss of appetite, loss of voice, 25 pound weight loss Location: Generalized Current Severity: Moderate Maximum Severity: Moderate Worsened by: Patient attributes this due to vascular surgery end of April Relieved by: Nothing Associated Symptoms Associated Symptoms: Dry mouth, thirst, orthostatic lightheadedness Narrative Narrative: Patient is a 68-year-old male with history of stenosis of left subclavian artery, iliac aneurysm, abdominal aortic aneurysm, aneurysm of the subclavian artery, nonrheumatic aortic valvular disease, atherosclerotic disease status post bypass surgery (triple bypass), essential hypertension hyperlipidemia. Patient states the main reason he came here is because of weakness and fatigue. He has lost 25 pounds since surgery. He denies fever, chills night sweats. He denies headache, visual, ocular auditory symptoms. Patient denies upper respiratory tract infectious symptoms. Patient does admit to vomiting 6 times over the past 3 days. He denied hematemesis or coffee-ground emesis. He denies diarrhea. Denies black or maroon-colored stool. He denies dysuria, frequency, urgency or hematuria. He does endorse decreased urine output. He states after surgery has had intermittent hoarse voice. He is now had a hoarse voice for over 2 weeks. 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 Carotid artery disease Right bundle branch block Nonrheumatic aortic (valve) insufficiency Ascending aortic aneurysm History of non-ST elevation myocardial infarction (NSTEMI) (12/05/06) Essential hypertension Acute cholecystitis Home Medications ?Medication ?Instructions ?Recorded ?Last Taken ?Type lovastatin 10 mg tablet 10 mg PO QHS 12/21/18 Unknown History aspirin 81 mg tablet,delayed 162 mg PO DAILY 01/13/19 Unknown History release (Adult Aspirin Regimen) metoprolol succinate 25 mg 75 mg (3 x 25 mg) PO DAILY #270 01/31/19 Unknown Rx tablet,extended release 24 hr tabs amlodipine 5 mg tablet 5 mg PO DAILY 12/22/22 Unknown History levothyroxine 75 mcg tablet 75 mcg PO DAILY 12/22/22 Unknown History meclizine 25 mg tablet 25 mg PO TID PRN 12/22/22 Unknown History [id number] 300 mcg-K 60 1 tab PO DAILY 12/22/22 Unknown History mcg-lycop 600 mcg-lutein 300 mcg tablet tamsulosin 0.4 mg capsule 0.4 mg PO QHS 12/22/22 Unknown History Allergy/AdvReac Type Severity Reaction Status Date / Time codeine Allergy Vomiting Verified 06/06/24 15:20 acetaminophen (From Percocet) AdvReac Mild Nausea Verified 06/06/24 15:20 oxycodone (From Percocet) AdvReac Mild Nausea Verified 06/06/24 15:20 Family History Mother Cancer Father , @ age 40 Heart disease Sister Heart disease Stenting Grandmother Cancer Hip Brother Obesity Sister CAD (coronary artery disease) stents Surgical History Hx of heart artery stent Sternal wound dehiscence (12/21/18) History of aortic aneurysm repair (12/09/18) Hx of ascending aorta replacement (12/10/18) History of left heart catheterization (12/06/18) S/P CABG x 3 S/P cholecystectomy History of tonsillectomy H/O right inguinal hernia repair Social History Smoking Status: Former smoker alcohol intake: never substance use type: does not use ROS ROS ED Constitutional Constitutional ED: Reports weight loss; Denies chills, fever(s), subjective or sweats Eyes Eyes: Denies blurry vision or change in vision ENT ENT ED: Denies ear pain, rhinorrhea or sore throat Cardiovascular Cardiovascular: Denies chest pain, orthopnea, palpitations or paroxysmal nocturnal dyspnea Respiratory/Chest Respiratory/Chest: Denies cough, dyspnea, dyspnea on exertion, orthopnea or paroxysmal nocturnal dyspnea Gastrointestinal Gastrointestinal: Reports nausea and vomiting; Denies abdominal pain, constipation, diarrhea or melena Genitourinary Genitourinary ED: Denies dysuria, hematuria or urinary frequency Musculoskeletal Musculoskeletal: Denies arthralgias or myalgias Integumentary Denies rash Neurologic Neurologic: Reports weakness; Denies headache(s) or paresthesias Psychiatric Psychiatric: Reports depression; Denies anxiety Hematologic/Lymphatic Hematologic/Lymphatic: Reports systems reviewed and no addt'l complaints, except as documented EXAM Physical Exam Const Vital Signs: 06/06/24 15:14 06/06/24 15:19 06/06/24 15:22 Temperature 97.9 F 97.9 F Temperature Source Oral Oral Pulse Rate 100 100 Pulse Rate [Lying] Pulse Rate [Sitting (for 1 minute prior to obtaining)] Pulse Rate [Standing (for 1 minute prior to obtaining)] Respiratory Rate 18 16 Respiratory Effort Normal Non-Labored Respiratory Pattern Normal Blood Pressure 140/85 H 140/85 H Blood Pressure [Lying] Blood Pressure [Sitting (for 1 minute prior to obtaining)] Blood Pressure [Standing (for 1 minute prior to obtaining)] Blood Pressure Mean 103 103 Blood Pressure Mean [Lying] Blood Pressure Mean [Sitting (for 1 minute prior to obtaining)] Blood Pressure Mean [Standing (for 1 minute prior to obtaining)] Pulse Ox 100 99 Oxygen Delivery Method Room Air 06/06/24 17:08 06/06/24 17:15 06/06/24 17:23 Temperature Temperature Source Pulse Rate 78 77 79 Pulse Rate [Lying] Pulse Rate [Sitting (for 1 minute prior to obtaining)] Pulse Rate [Standing (for 1 minute prior to obtaining)] Respiratory Rate 19 H 19 H 15 Respiratory Effort Respiratory Pattern Blood Pressure 128/82 H 125/80 H Blood Pressure [Lying] Blood Pressure [Sitting (for 1 minute prior to obtaining)] Blood Pressure [Standing (for 1 minute prior to obtaining)] Blood Pressure Mean 98 94 Blood Pressure Mean [Lying] Blood Pressure Mean [Sitting (for 1 minute prior to obtaining)] Blood Pressure Mean [Standing (for 1 minute prior to obtaining)] Pulse Ox Oxygen Delivery Method 06/06/24 17:24 06/06/24 17:27 06/06/24 17:28 Temperature Temperature Source Pulse Rate 92 104 H Pulse Rate [Lying] 85 Pulse Rate [Sitting (for 1 minute prior to obtaining)] 91 Pulse Rate [Standing (for 1 minute prior to obtaining)] 98 Respiratory Rate 26 H 23 H Respiratory Effort Respiratory Pattern Blood Pressure 120/79 98/66 Blood Pressure [Lying] 125/80 H Blood Pressure [Sitting (for 1 minute prior to obtaining)] 120/79 Blood Pressure [Standing (for 1 minute prior to obtaining)] 98/66 Blood Pressure Mean 91 77 Blood Pressure Mean [Lying] 95 Blood Pressure Mean [Sitting (for 1 minute prior to obtaining)] 92 Blood Pressure Mean [Standing (for 1 minute prior to obtaining)] 76 Pulse Ox Oxygen Delivery Method 06/06/24 17:30 06/06/24 17:45 06/06/24 18:00 Temperature Temperature Source Pulse Rate 116 H 87 85 Pulse Rate [Lying] Pulse Rate [Sitting (for 1 minute prior to obtaining)] Pulse Rate [Standing (for 1 minute prior to obtaining)] Respiratory Rate 24 H 21 H 21 H Respiratory Effort Respiratory Pattern Blood Pressure 129/87 H 135/92 H Blood Pressure [Lying] Blood Pressure [Sitting (for 1 minute prior to obtaining)] Blood Pressure [Standing (for 1 minute prior to obtaining)] Blood Pressure Mean 102 105 Blood Pressure Mean [Lying] Blood Pressure Mean [Sitting (for 1 minute prior to obtaining)] Blood Pressure Mean [Standing (for 1 minute prior to obtaining)] Pulse Ox Oxygen Delivery Method 06/06/24 18:15 06/06/24 18:30 06/06/24 18:45 Temperature Temperature Source Pulse Rate 84 84 90 Pulse Rate [Lying] Pulse Rate [Sitting (for 1 minute prior to obtaining)] Pulse Rate [Standing (for 1 minute prior to obtaining)] Respiratory Rate 23 H 21 H 23 H Respiratory Effort Respiratory Pattern Blood Pressure 130/75 H 133/84 H 121/78 H Blood Pressure [Lying] Blood Pressure [Sitting (for 1 minute prior to obtaining)] Blood Pressure [Standing (for 1 minute prior to obtaining)] Blood Pressure Mean 93 100 92 Blood Pressure Mean [Lying] Blood Pressure Mean [Sitting (for 1 minute prior to obtaining)] Blood Pressure Mean [Standing (for 1 minute prior to obtaining)] Pulse Ox Oxygen Delivery Method 06/06/24 18:46 06/06/24 19:00 06/06/24 19:15 Temperature 99 F Temperature Source Oral Pulse Rate 89 81 75 Pulse Rate [Lying] Pulse Rate [Sitting (for 1 minute prior to obtaining)] Pulse Rate [Standing (for 1 minute prior to obtaining)] Respiratory Rate 22 H 21 H 19 H Respiratory Effort Respiratory Pattern Blood Pressure 121/78 H 142/82 H 141/81 H Blood Pressure [Lying] Blood Pressure [Sitting (for 1 minute prior to obtaining)] Blood Pressure [Standing (for 1 minute prior to obtaining)] Blood Pressure Mean 92 99 98 Blood Pressure Mean [Lying] Blood Pressure Mean [Sitting (for 1 minute prior to obtaining)] Blood Pressure Mean [Standing (for 1 minute prior to obtaining)] Pulse Ox 97 Oxygen Delivery Method Room Air 06/06/24 19:30 06/06/24 19:45 06/06/24 20:00 Temperature Temperature Source Pulse Rate 72 75 Pulse Rate [Lying] Pulse Rate [Sitting (for 1 minute prior to obtaining)] Pulse Rate [Standing (for 1 minute prior to obtaining)] Respiratory Rate 19 H 21 H Respiratory Effort Respiratory Pattern Blood Pressure 148/81 H 141/80 H 133/76 H Blood Pressure [Lying] Blood Pressure [Sitting (for 1 minute prior to obtaining)] Blood Pressure [Standing (for 1 minute prior to obtaining)] Blood Pressure Mean 101 98 93 Blood Pressure Mean [Lying] Blood Pressure Mean [Sitting (for 1 minute prior to obtaining)] Blood Pressure Mean [Standing (for 1 minute prior to obtaining)] Pulse Ox Oxygen Delivery Method 06/06/24 20:15 06/06/24 20:30 06/06/24 20:45 Temperature Temperature Source Pulse Rate 77 76 Pulse Rate [Lying] Pulse Rate [Sitting (for 1 minute prior to obtaining)] Pulse Rate [Standing (for 1 minute prior to obtaining)] Respiratory Rate 19 H 20 H 22 H Respiratory Effort Respiratory Pattern Blood Pressure 140/84 H 134/83 H 149/87 H Blood Pressure [Lying] Blood Pressure [Sitting (for 1 minute prior to obtaining)] Blood Pressure [Standing (for 1 minute prior to obtaining)] Blood Pressure Mean 101 99 105 Blood Pressure Mean [Lying] Blood Pressure Mean [Sitting (for 1 minute prior to obtaining)] Blood Pressure Mean [Standing (for 1 minute prior to obtaining)] Pulse Ox Oxygen Delivery Method 06/06/24 21:00 06/06/24 21:06 06/06/24 21:15 Temperature 98.8 F Temperature Source Oral Pulse Rate 80 Pulse Rate [Lying] Pulse Rate [Sitting (for 1 minute prior to obtaining)] Pulse Rate [Standing (for 1 minute prior to obtaining)] Respiratory Rate 18 Respiratory Effort Respiratory Pattern Blood Pressure 122/85 H 122/85 H 152/89 H Blood Pressure [Lying] Blood Pressure [Sitting (for 1 minute prior to obtaining)] Blood Pressure [Standing (for 1 minute prior to obtaining)] Blood Pressure Mean 97 97 108 Blood Pressure Mean [Lying] Blood Pressure Mean [Sitting (for 1 minute prior to obtaining)] Blood Pressure Mean [Standing (for 1 minute prior to obtaining)] Pulse Ox 98 Oxygen Delivery Method Room Air 06/06/24 21:30 06/06/24 21:45 06/06/24 22:00 Temperature Temperature Source Pulse Rate 80 82 79 Pulse Rate [Lying] Pulse Rate [Sitting (for 1 minute prior to obtaining)] Pulse Rate [Standing (for 1 minute prior to obtaining)] Respiratory Rate 26 H 20 H 18 Respiratory Effort Respiratory Pattern Blood Pressure 147/100 H 140/94 H 146/94 H Blood Pressure [Lying] Blood Pressure [Sitting (for 1 minute prior to obtaining)] Blood Pressure [Standing (for 1 minute prior to obtaining)] Blood Pressure Mean 113 109 111 Blood Pressure Mean [Lying] Blood Pressure Mean [Sitting (for 1 minute prior to obtaining)] Blood Pressure Mean [Standing (for 1 minute prior to obtaining)] Pulse Ox Oxygen Delivery Method 06/06/24 22:15 06/06/24 22:30 06/06/24 22:45 Temperature Temperature Source Pulse Rate 88 Pulse Rate [Lying] Pulse Rate [Sitting (for 1 minute prior to obtaining)] Pulse Rate [Standing (for 1 minute prior to obtaining)] Respiratory Rate 31 H 25 H 24 H Respiratory Effort Respiratory Pattern Blood Pressure 143/88 H 139/90 H 116/103 H Blood Pressure [Lying] Blood Pressure [Sitting (for 1 minute prior to obtaining)] Blood Pressure [Standing (for 1 minute prior to obtaining)] Blood Pressure Mean 106 105 108 Blood Pressure Mean [Lying] Blood Pressure Mean [Sitting (for 1 minute prior to obtaining)] Blood Pressure Mean [Standing (for 1 minute prior to obtaining)] Pulse Ox Oxygen Delivery Method 06/06/24 23:00 06/06/24 23:16 Temperature 97.7 F L Temperature Source Pulse Rate 80 Pulse Rate [Lying] Pulse Rate [Sitting (for 1 minute prior to obtaining)] Pulse Rate [Standing (for 1 minute prior to obtaining)] Respiratory Rate 18 Respiratory Effort Respiratory Pattern Blood Pressure 130/89 H 123/86 H Blood Pressure [Lying] Blood Pressure [Sitting (for 1 minute prior to obtaining)] Blood Pressure [Standing (for 1 minute prior to obtaining)] Blood Pressure Mean 100 98 Blood Pressure Mean [Lying] Blood Pressure Mean [Sitting (for 1 minute prior to obtaining)] Blood Pressure Mean [Standing (for 1 minute prior to obtaining)] Pulse Ox 97 Oxygen Delivery Method Orthostatic vital signs are positive. Positive well developed Constitutional Narrative: Patient appears pale. His pants are very loose on him. Vital signs noted. General Appearance ED: well developed and pallor HEENT Reports dry mucous membranes HEENT Narrative: Patient's voice is very soft and difficult to understand. Mucosa is dry. He is a dentulous. Mouth ED: Yes dry mucous membranes Mouth: dry mucous membranes Eyes PERRL and EOMs intact bilaterally General Eye ED: Negative for pale conjunctiva or scleral icterus Neck no lymphadenopathy, supple and no JVD Resp normal respiratory effort and clear to auscultation bilaterally Cardio regular rate, regular rhythm, S1 normal heart sound, S2 normal heart sound and no murmurs GI normal to inspection, nondistended, normoactive bowel sounds, non-tender, non-distended and no masses; Negative for hepatosplenomegaly GI Narrative: There is no palpable pulsatile mass. There is slight tympany to percussion. Extremity normal to inspection General Extremety ED: Negative for edema or tenderness General Extremity: Negative for edema Neuro oriented x3 and CN's II-XII intact bilaterally Sensorium / Orientation: alert Psych Mood & Affect: depressed Skin no rashes or lesions noted, no wounds and No skin turgor normal General Skin Exam: pallor; Negative for elasticity normal or jaundice MDM MDM MDM Narrative Medical decision making narrative: Patient with failure to thrive. In light of him vomiting poor p.o. intake will undertake workup to assess renal function, CO2 anion gap, electrolytes. CBC to assess H&H since he appears pale as well as white count differential. Orthostatic vital signs were ordered. Prior records were reviewed. These were documented in the HPI narrative. History & Record Review Additional record(s) reviewed:: Prior inpatient record, Prior ED visit and Prior labs Lab Data Attestation: I reviewed the patient's lab results. Lab results narrative: Prior labs were obtained on January 17, 2024. H&H at that time was 11.7 and 38.3. Creatinine at that time was 1.38. Estimated GFR was 54. Albumin was 3.6. Stool for occult blood is positive. The stool was brown in color. Labs: Laboratory Results - last 24 hr 06/06/24 06/06/24 15:58 17:34 WBC 13.7 H RBC 3.49 L Hgb 8.8 L Hct 28.9 L MCV 82.8 MCH 25.2 L MCHC 30.4 L RDW Std Deviation 45.7 H RDW Coeff of Antonia 15.2 H Plt Count 268 MPV 10.3 Immature Gran % (Auto) 0.900 Neut % (Auto) 69.2 Lymph % (Auto) 17.8 L [place] % (Auto) 11.2 H Eos % (Auto) 0.5 Baso % (Auto) 0.4 Absolute Neuts (auto) 9.5 H Absolute Lymphs (auto) 2.45 Nucleated RBC % 0 Differential Comment SEE COMMENT Diff Path Review May foll Platelet Estimate ADEQUATE RBC Morphology NORM C+C Hypochromasia RARE Anisocytosis RARE Sodium 137 Potassium 4.0 Chloride 102 Carbon Dioxide 28.0 Anion Gap 7 BUN 24 H Creatinine 1.45 H Estim Creat Clear Calc 48.95 Est GFR (MDRD) Af Amer 62 Est GFR (MDRD) Non-Af 51 L BUN/Creatinine Ratio 16.6 Glucose 117 H Calcium 9.9 Total Bilirubin 0.40 AST 22 ALT 30 Alkaline Phosphatase 83 Total Protein 8.0 Albumin 2.6 L Globulin 5.4 H Albumin/Globulin Ratio 0.5 L Urine Color Yellow Urine Clarity Sl. Cloudy Urine pH 6.5 Ur Specific [place] 1.015 Urine Protein 30 H Urine Glucose (UA) Normal Urine Ketones Negative Urine Occult Blood 10 H Urine Nitrite Negative Urine Bilirubin Negative Urine Urobilinogen 4 H Ur Leukocyte Esterase Negative Urine RBC 0-5 SEEN Urine WBC 0 SEEN Ur Squamous Epith Cells 0-5 SEEN Amorphous Sediment 1+ URATE Urine Bacteria 0 SEEN Urine Mucus 0 SEEN EKG Initial EKG: Attestation: I personally reviewed and interpreted this EKG as follows: Interpretation: Sinus Rhythm (Normal sinus rhythm rate 89. Right bundle branch block. DE interval is 124 ms. Cures duration 136 ms. QT duration 306 ms. [place] is to the) Treatment and Re-Evaluation :: Will have patient follow-up with GI. Will have him scheduled to see Dr. Perry specially with Hemoccult positive blood drop in hemoglobin weight loss need to evaluate for malignancy. Discharge Plan Triage Chief Complaint: Weakness ED Provider: Stepan Bailon Dx/Rx/DC Orders Clinical Impression: Anemia due to blood loss, acute, Essential hypertension, S/P CABG x 3, Carotid artery disease, Hyperlipidemia, Iliac aneurysm, Unintentional weight loss, Signs and symptoms of anemia, Orthostatic hypotension, Fatigue Instructions: ED Anemia, Type Not Specified (Adult), ED Hypotension, Orthostatic Prescriptions: No Action aspirin [Adult Aspirin Regimen] 81 mg tablet,delayed release (DR/EC) 162 mg PO DAILY amlodipine 5 mg tablet 5 mg PO DAILY Patient Comments: TAKE 1 TABLET BY MOUTH EVERY DAY meclizine 25 mg tablet 25 mg PO TID PRN Patient Comments: TAKE 1 TABLET BY MOUTH THREE TIMES A DAY NEEDED levothyroxine 75 mcg tablet 75 mcg PO DAILY Rx Instructions: TAKE 1 (ONE) TABLET IN THE MORNING WITH BREAKFAST EXCEPT 1/2 TAB ON SUNDAYS tamsulosin 0.4 mg capsule 0.4 mg PO QHS Patient Comments: TAKE 1 CAPSULE BY MOUTH AT BEDTIME lovastatin 10 MG tablet 10 mg PO QHS [id number] mcg tablet 1 tab PO DAILY metoprolol succinate 25 mg tablet extended release 24 hr 75 mg PO DAILY Qty: 270 3RF Primary Care Provider: Leo Ye Referrals: Leo Ye MD [Primary Care Provider] - 1-2 Weeks Jonathan Perry DO [Med Staff - Active Staff] - Keep Priscilla appointment Activity Restrictions/Additional Instructions: Keep your appointment with Dr. Perry since you I have unintentional weight loss with blood in your stool and anemia. You will need to be screened for cancer. Print Language: [place] Disposition Disposition: Home, Self Care
[2024-06-06 16:09] LABS: Absolute Lymphocyte Count 2.45 X10^3/uL (0.83-4.51); Absolute Neutrophil Count 9.5 X10^3/uL (2.0-7.7); Basophil# 0.05 X10^3/uL; Basophil% 0.4 % (0-1); Eosinophil# 0.07 X10^3/uL; Eosinophils% 0.5 % (0-5); Hematocrit 28.9 % (40-54); Hemoglobin 8.8 g/dL (13.0-16.5); Lymphocyte # 2.45 X10^3/ul (0.83-4.51); Lymphocyte % 17.8 % (19-41); Mean Corp Hgb Conc 30.4 g/dL (32-36); Mean Corpuscular Hgb 25.2 pg (27.0-32.0); Mean Corpuscular Volume 82.8 fL (80-94); Mean Platelet Vol. 10.3 fl (6.2-12.0); Monocyte# 1.54 X10^3/uL; Monocyte% 11.2 % (0-10); NRBC Flagged by Analyzer 0 % (0-5); Neutrophil # 9.49 X10^3/uL (2.7-7.7); Neutrophil % 69.2 % (47-70); POSITIVE DIFFERENTIAL YES; Platelet Count 268 K/mm3 (150-450); RBC Distribution Width CV 15.2 % (11.6-14.6); RBC Distribution Width SD 45.7 fl (35.1-43.9); Red Blood Count 3.49 M/mm3 (4.6-6.2); White Blood Count 13.7 K/mm3 (4.4-11.0)
[2024-06-06 16:24] LABS: ALB/GLOB Ratio 0.5 RATIO (0.9-2.4); AST(SGOT) 22 U/L (15-37); Alanine Aminotransfer ALT/SGPT 30 U/L (16-61); Albumin, Serum 2.6 g/dL (3.2-5.0); Alkaline Phosphatase 83 U/L (45-117); Anion Gap 7 (5-15); BUN 24 mg/dL (7-18); BUN/Creat Ratio 16.6 RATIO (10-20); Calcium,Total 9.9 mg/dL (8.5-10.1); Chloride 102 mmol/L (98-107); Creatinine, Serum 1.45 mg/dL (0.70-1.30); EST Glomerular Filtration Rate 51 mL/min (>60); Est Glom Filt Rate - Afr Amer 62 mL/min (>60); Estimated Creatinine Clearance 48.95 ml/min; Globulin 5.4 g/dL (2.2-4.2); Glucose 117 mg/dL (74-106); Sodium Level 137 mmol/L (136-145)
[2024-06-06 16:41] LABS: Differential Indicated SCAN CRITERIA MET
[2024-06-06 16:44] LABS: Anisocytosis RARE; Hypochromasia RARE; Platelet Estimate ADEQUATE (ADEQ); Red Cell Morphology NORM C+C NORMAL (NORM C&C)
[2024-06-06 17:42] LABS: Bacteria 0 SEEN /hpf (None Seen); Mucous, Urine 0 SEEN /hpf (<or=2+); White Blood Cells 0 SEEN /hpf (0-5)
[2024-06-06 17:45] LABS: Color, Urine Yellow (Yellow); Glucose, Dipstick Normal (Normal); Ketone-Dipstick Negative (Negative); Leukocyte Esterase-Dipstick Negative /ul (Negative); Nitrite-Dipstick Negative (Negative); Occult Blood-Urine 10 /ul (Negative); Protein-Dipstick 30 mg/dl (Negative); Specific Gravity, Urine 1.015 (1.002-1.030); Urine Bilirubin Dipstick Negative (Negative); Urine Clarity Sl. Cloudy (Clear); Urine Urobilinogen 4 mg/dl (Normal); Urine pH 6.5 (5.0 - 8.0)
[2024-06-06 18:06] LABS: Amorphous Sediment 1+ URATE; Red Blood Cells-Urine 0-5 SEEN /hpf (0-5); Squamous Epithelial Cells - UA 0-5 SEEN /hpf (0-5)
[2024-06-06] MEDS: 0.9% Normal Saline (1000mL) 1,000 ML 1000 ML IV (18:45)
[2024-06-09 14:06] LABS: Pathologist Review Reviewed
== END 2024-06-06 23:33 | disposition home or self-care (01) ==
PROVIDERS: Emergency Provider Emergency Medicine; PCP Family Medicine; Visit Provider Emergency Medicine
DX: D62 Acute posthemorrhagic anemia (principal); I71.40 Abdominal aortic aneurysm, without rupture, unspecified; I72.8 Aneurysm of other specified arteries; R63.4 Abnormal weight loss; I95.1 Orthostatic hypotension; R53.83 Other fatigue; R19.5 Other fecal abnormalities; I10 Essential (primary) hypertension; I35.1 Nonrheumatic aortic (valve) insufficiency; I25.2 Old myocardial infarction; I25.10 Atherosclerotic heart disease of native coronary artery without angina pectoris; I65.29 Occlusion and stenosis of unspecified carotid artery; I45.10 Unspecified right bundle-branch block; E78.5 Hyperlipidemia, unspecified; E03.9 Hypothyroidism, unspecified; N40.0 Benign prostatic hyperplasia without lower urinary tract symptoms; Z95.1 Presence of aortocoronary bypass graft; Z86.73 Personal history of transient ischemic attack (TIA), and cerebral infarction without residual deficits; Z79.82 Long term (current) use of aspirin; Z79.899 Other long term (current) drug therapy; Z79.890 Hormone replacement therapy; Z87.891 Personal history of nicotine dependence
CPT/HCPCS: 80053; 81001; 82274; 85025; 93005; 96360; 96361; 99285

== ENCOUNTER 2024-06-12 11:39 | Observation (INO) | payer MEDICARE, SELFPAY ==
[2024-06-12] VITALS (7 sets, daily range): BP systolic 126–152; BP diastolic 79–99; PULSE 80–104; RESP 16–28; TEMP 36.3–36.9; O2SAT 96–100; BMI 22.8; BMI 23.0
--- NOTE | 2024-06-12 12:14 | CM.ED ---
Social Work SW was able to confirm that patient has both HPOA and LW on file with [facility]. Imelda Scales, WINDOW REPAIRER, [employer]
--- NOTE | 2024-06-12 12:25 | EKG12_ITS ---
Test Reason : WEAKNESS Blood Pressure : */* mmHG Vent. Rate : 89 BPM Atrial Rate : 89 BPM P-R Int : 120 ms QRS Dur : 128 ms QT Int : 370 ms P-R-T Axes : 39 67 47 degrees QTcB Int : 450 ms Normal sinus rhythm Non-specific intra-ventricular conduction block Nonspecific ST-T Changes Abnormal ECG Confirmed by Stefan Foster ([id number]), editor index TRUNG VARGHESE ([id number]) on 06/16/2024 7:42:03 AM Referred By: Tobias Padilla Confirmed By: Stefan Foster
--- NOTE | 2024-06-12 12:27 | EX.ED.DYSGE1 ---
HPI History of Present Illness Chief Complaint: Weakness Informant: patient Narrative Narrative: 68-year-old male past medical history of 8 cm AAA, had surgery on an iliac aneurysm/bypass surgery in [place] approximately 1 month ago presents with generalized weakness and fatigue and failure to thrive for the last month. He states he lives in the basement of his daughter's home that is very dark. He is eating less and is having difficulty taking care of himself. States recently that he has been vomiting but denies any gross hematemesis. Denies dark stool. Decreased appetite and eating less. He states that if he could get placed in rehab at least temporarily that he can get stronger. 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 Carotid artery disease Right bundle branch block Nonrheumatic aortic (valve) insufficiency Ascending aortic aneurysm History of non-ST elevation myocardial infarction (NSTEMI) (12/05/06) Essential hypertension Acute cholecystitis Home Medications ?Medication ?Instructions ?Recorded ?Last Taken ?Type lovastatin 10 mg tablet 10 mg PO QHS 12/21/18 Unknown History aspirin 81 mg tablet,delayed 162 mg PO DAILY 01/13/19 Unknown History release (Adult Aspirin Regimen) metoprolol succinate 25 mg 75 mg (3 x 25 mg) PO DAILY #270 01/31/19 Unknown Rx tablet,extended release 24 hr tabs levothyroxine 75 mcg tablet 75 mcg PO DAILY 12/22/22 Unknown History meclizine 25 mg tablet 25 mg PO TID PRN 12/22/22 Unknown History umhtzhme-cy-sahob 300 mcg-K 60 1 tab PO DAILY 12/22/22 Unknown History mcg-lycop 600 mcg-lutein 300 mcg tablet tamsulosin 0.4 mg capsule 0.4 mg PO QHS 12/22/22 Unknown History famotidine 40 mg tablet 40 mg PO QHS #30 tabs 06/12/24 Unknown Rx omega-3 fatty acids-fish oil 300 cap PO 06/12/24 Unknown History mg-500 mg capsule (Fish Oil) omeprazole 40 mg capsule,delayed 40 mg PO BID #60 caps 06/12/24 Unknown Rx release Allergy/AdvReac Type Severity Reaction Status Date / Time codeine Allergy Vomiting Verified 06/12/24 11:42 acetaminophen (From Percocet) AdvReac Mild Nausea Verified 06/12/24 11:42 oxycodone (From Percocet) AdvReac Mild Nausea Verified 06/12/24 11:42 Family History Mother Cancer Father , @ age 40 Heart disease Sister Heart disease Stenting Grandmother Cancer Hip Brother Obesity Sister CAD (coronary artery disease) stents Surgical History Hx of heart artery stent Sternal wound dehiscence (12/21/18) History of aortic aneurysm repair (12/09/18) Hx of ascending aorta replacement (12/10/18) History of left heart catheterization (12/06/18) S/P CABG x 3 S/P cholecystectomy History of tonsillectomy H/O right inguinal hernia repair Social History household members: none Smoking Status: Former smoker alcohol intake: never substance use type: does not use ROS ROS ED ROS Narrative Constitutional: No fever, no chills. Generalized weakness. Decreased appetite. HEENT: No sore throat. No neck pain. Cardiovascular: No chest pain. No palpitations. No pedal edema. Respiratory: No cough, no shortness of breath. Abdominal: No abdominal pain. Positive nausea and vomiting. Genitourinary: No dysuria. No hematuria. Musculoskeletal: No myalgias. No arthralgias. Neurologic: No headaches. No dizziness. No lightheadedness. Skin: No rash. No change in color. Psychiatric: No depression. No anxiety. EXAM Physical Exam Narrative Exam Narrative: Afebrile. Vital signs noted. Nontoxic-appearing. Cardiovascular examination reveals a mild tachycardia. Lungs are clear to auscultation bilaterally. Abdomen is soft nontender without guarding or rebound. Positive bowel sounds. Neurological examination nonfocal and nonlateralizing. Hoarse voice, but states this is chronic and he lost his voice since his surgery. Const Vital Signs: 06/12/24 11:40 06/12/24 13:59 Temperature 97.6 F L Temperature Source Temporal Pulse Rate 104 H 81 Respiratory Rate 16 Blood Pressure 142/90 H 144/83 H Blood Pressure Mean 107 103 Pulse Ox 96 98 Oxygen Delivery Method Room Air Room Air MDM MDM MDM Narrative Medical decision making narrative: Differential diagnosis includes but not limited to dehydration versus electrolyte imbalance versus generalized weakness of unknown cause versus deconditioning. Comprehensive workup was pursued. His abdomen is nontender so I do not feel that he requires any imaging of his abdomen currently as I have very low suspicion for a leaking AAA and his generalized weakness has been ongoing for at least a month. Reviewed his laboratory work. He has a leukocytosis of 16.7 which I think is nonspecific, hemoglobin improved at 9.4, I do not feel he requires emergent transfusion. Platelet count normal at 318. CMP is remarkable for glucose of 161 with a normal anion gap of 11, BUN slightly elevated 26 with normal creatinine of 1.3. Lipase normal at 35 so I doubt pancreatitis. Urinalysis is negative for infection with 0 WBCs. I do not feel antibiotics are indicated. I reviewed his respiratory swab and it is negative for COVID, influenza, and RSV. EKG was obtained and interpreted by myself independently as normal sinus rhythm at 89 bpm without ectopy or acute ST changes. No STEMI. Chest x-ray 1 view interpreted by myself independently shows no evidence of pneumonia, pneumothorax, or CHF. I reviewed the radiology report which confirms my independent interpretation. After social work evaluation, patient was hoping to be admitted to the TCU, but was told that that is not a guarantee. He is considering placement and other [facility] facilities. I discussed patient with Dr. Burks for observation and continued social work consult for placement and rehab. Patient is in stable condition. History & Record Review Discussion w/independent historian: Patient Additional record(s) reviewed:: Prior labs Lab Data Attestation: I reviewed the patient's lab results. Labs: Laboratory Results - last 24 hr 06/12/24 06/12/24 12:01 13:34 WBC 16.7 H RBC 3.72 L Hgb 9.4 L Hct 31.2 L MCV 83.9 MCH 25.3 L MCHC 30.1 L RDW Std Deviation 47.3 H RDW Coeff of Antonia 15.5 H Plt Count 318 MPV 11.0 Immature Gran % (Auto) 3.200 H Neut % (Auto) 70.8 H Lymph % (Auto) 17.5 L [place] % (Auto) 7.2 Eos % (Auto) 0.7 Baso % (Auto) 0.6 Absolute Neuts (auto) 11.8 H Absolute Lymphs (auto) 2.92 Nucleated RBC % 0 Sodium 134 Potassium 4.3 Chloride Direct 99 Carbon Dioxide 23.3 Anion Gap 11 BUN 26 H Creatinine 1.3 Estim Creat Clear Calc 54.15 Est GFR (MDRD) Non-Af 61 BUN/Creatinine Ratio 20.3 H Glucose 161 H Calcium 10.0 Total Bilirubin 0.31 AST 36 ALT 36 Alkaline Phosphatase 98 Total Protein 7.8 Albumin 3.4 Globulin 4.4 H Albumin/Globulin Ratio 0.8 L Lipase 35 Urine Color Yellow Urine Clarity Clear Urine pH 6.0 Ur Specific [place] 1.020 Urine Protein 30 H Urine Glucose (UA) Normal Urine Ketones Negative Urine Occult Blood Negative Urine Nitrite Negative Urine Bilirubin Negative Urine Urobilinogen 4 H Ur Leukocyte Esterase 25 H Urine RBC 5-10 SEEN Urine WBC 0 SEEN Ur Squamous Epith Cells 0 SEEN Urine Bacteria 0 SEEN Urine Mucus 0 SEEN Radiography Chest X-Ray - ED: 1 View, Read by ED Physician and Read by Radiologist Diagnostic Testing: Clinical Impression(s) from Imaging Studies Chest X-Ray 06/12/24 12:40 IMPRESSION: No acute consolidation, pleural effusion or pneumothorax. Reading Location: [facility] Management Discussion w/another healthcare provider: Hospitalist and home mission worker/Case management Discharge Plan Dx/Rx/DC Orders Clinical Impression: Generalized weakness, AAA (abdominal aortic aneurysm), Fatigue, Adult failure to thrive Disposition Disposition: Acute Care Hospital [facility]
[2024-06-12 12:32] LABS: Absolute Lymphocyte Count 2.92 X10^3/uL (0.83-4.51); Absolute Neutrophil Count 11.8 X10^3/uL (2.0-7.7); Basophil% 0.6 % (0-1); Eosinophil# 0.11 X10^3/uL; Eosinophils% 0.7 % (0-5); Hematocrit 31.2 % (40-54); Hemoglobin 9.4 g/dL (13.0-16.5); Lymphocyte # 2.92 X10^3/ul (0.83-4.51); Lymphocyte % 17.5 % (19-41); Mean Corp Hgb Conc 30.1 g/dL (32-36); Mean Corpuscular Hgb 25.3 pg (27.0-32.0); Mean Corpuscular Volume 83.9 fL (80-94); Monocyte# 1.21 X10^3/uL; Monocyte% 7.2 % (0-10); NRBC Flagged by Analyzer 0 % (0-5); Neutrophil # 11.84 X10^3/uL (2.7-7.7); Neutrophil % 70.8 % (47-70); Platelet Count 318 K/mm3 (150-450); RBC Distribution Width CV 15.5 % (11.6-14.6); RBC Distribution Width SD 47.3 fl (35.1-43.9); Red Blood Count 3.72 M/mm3 (4.6-6.2); White Blood Count 16.7 K/mm3 (4.4-11.0)
--- NOTE | 2024-06-12 12:40 | RAD_ITS ---
PROCEDURE: CHEST 1 VIEW (PORTABLE) REASON FOR EXAM: Weakness. TECHNIQUE: Frontal view of the chest. COMPARISON: CT dated 11/09/2022. FINDINGS: The heart size is normal. Aortic endograft. No acute consolidation, pleural effusion or pneumothorax. Scar/atelectasis at the left lung base. Status post median sternotomy. RAD/Chest 1 View (Portable) IMPRESSION: No acute consolidation, pleural effusion or pneumothorax. Reading Location: [id number]
[2024-06-12 13:02] LABS: ALB/GLOB Ratio 0.8 RATIO (0.9-2.4); AST(SGOT) 36 U/L (<=37); Alanine Aminotransfer ALT/SGPT 36 U/L (<=46); Albumin, Serum 3.4 g/dL (3.4-4.8); Alkaline Phosphatase 98 U/L (40-129); Anion Gap 11 (5-15); BUN 26 mg/dL (4-19); BUN/Creat Ratio 20.3 RATIO (10-20); Carbon Dioxide 23.3 mmol/L (22.0-29.0); Chloride 99 mmol/L (96-108); Creatinine, Serum 1.3 mg/dL (0.8-1.3); EST Glomerular Filtration Rate 61 (>60); Estimated Creatinine Clearance 54.15 ml/min; Globulin 4.4 g/dL (2.2-4.2); Glucose 161 mg/dL (70-99); Lipase 35 U/L (13-75); Potassium 4.3 mmol/L (3.3-5.1); Protein, Total 7.8 g/dL (5.9-8.4); Sodium Level 134 mmol/L (133-145); Total Bilirubin 0.31 mg/dL (0.00-1.30)
[2024-06-12 13:41] LABS: Bacteria 0 SEEN /hpf (None Seen); Mucous, Urine 0 SEEN /hpf (<or=2+); Squamous Epithelial Cells - UA 0 SEEN /hpf (0-5); White Blood Cells 0 SEEN /hpf (0-5)
[2024-06-12 13:46] LABS: Color, Urine Yellow (Yellow); Glucose, Dipstick Normal (Normal); Ketone-Dipstick Negative (Negative); Leukocyte Esterase-Dipstick 25 /ul (Negative); Nitrite-Dipstick Negative (Negative); Occult Blood-Urine Negative /ul (Negative); Protein-Dipstick 30 mg/dl (Negative); Urine Bilirubin Dipstick Negative (Negative); Urine Clarity Clear (Clear); Urine Urobilinogen 4 mg/dl (Normal)
[2024-06-12 13:51] LABS: Red Blood Cells-Urine 5-10 SEEN /hpf (0-5)
--- NOTE | 2024-06-12 15:45 | PCM.HP.STD ---
[facility] - General General Date of Service: 06/12/24 Chief Complaint: Weakness [facility] Narrative SPRING AGUAYO, is a 68 M who presents with weakness. Approximately a month ago, patient underwent an extensive aneurysm repair at [facility]. Was discharged a month ago and has been living at home. He lives at home with his daughter and granddaughter. He stays in the basement and has been pretty much bedbound. His history is pretty tangential but what I am able to differentiate is that he has not been eating or drinking much because it is cumbersome for him to go up and down the stairs. And yesterday he states that there is some sort of house ruled out if you finish the jug of juice after go down to the basement pantry to get another. So he did do that yesterday but he only was able to make up some stairs and was just too weak to go up further. So he was just very weak and so he was brought to the hospital here. He underwent a workup that showed a white count of 16.7 but no other signs of infection. Patient is interested in going to the transitional care unit. He has met with social work already who recommend that he select other options outside of TCU in case that is not available. 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 Carotid artery disease Right bundle branch block Nonrheumatic aortic (valve) insufficiency Ascending aortic aneurysm History of non-ST elevation myocardial infarction (NSTEMI) (12/05/06) Essential hypertension Acute cholecystitis Home Medications ?Medication ?Instructions ?Recorded ?Last Taken ?Type lovastatin 10 mg tablet 10 mg PO QHS 12/21/18 Unknown History aspirin 81 mg tablet,delayed 162 mg PO DAILY 01/13/19 Unknown History release (Adult Aspirin Regimen) metoprolol succinate 25 mg 75 mg (3 x 25 mg) PO DAILY #270 10/18/19 Unknown Rx tablet,extended release 24 hr tabs levothyroxine 75 mcg tablet 75 mcg PO DAILY 12/22/22 Unknown History meclizine 25 mg tablet 25 mg PO TID PRN 12/22/22 Unknown History [id number]-pt-xjklo 300 mcg-K 60 1 tab PO DAILY 12/22/22 Unknown History mcg-lycop 600 mcg-lutein 300 mcg tablet tamsulosin 0.4 mg capsule 0.4 mg PO QHS 12/22/22 Unknown History famotidine 40 mg tablet 40 mg PO QHS #30 tabs 06/12/24 Unknown Rx omega-3 fatty acids-fish oil 300 cap PO 06/12/24 Unknown History mg-500 mg capsule (Fish Oil) omeprazole 40 mg capsule,delayed 40 mg PO BID #60 caps 06/12/24 Unknown Rx release Allergy/AdvReac Type Severity Reaction Status Date / Time codeine Allergy Vomiting Verified 06/12/24 11:42 acetaminophen (From Percocet) AdvReac Mild Nausea Verified 06/12/24 11:42 oxycodone (From Percocet) AdvReac Mild Nausea Verified 06/12/24 11:42 Family History Mother Cancer Father , @ age 40 Heart disease Sister Heart disease Stenting Grandmother Cancer Hip Brother Obesity Sister CAD (coronary artery disease) stents Surgical History Hx of heart artery stent Sternal wound dehiscence (12/21/18) History of aortic aneurysm repair (12/09/18) Hx of ascending aorta replacement (12/10/18) History of left heart catheterization (12/06/18) S/P CABG x 3 S/P cholecystectomy History of tonsillectomy H/O right inguinal hernia repair Social History household members: none Smoking Status: Former smoker alcohol intake: never substance use type: does not use ROS ROS Narrative States that since his surgery his voice has been weak. He does not recall if they placed any tubes in his neck. He denies having had any thyroid surgery. States that he gets early satiety with drinking water but does able to eat and drink otherwise. States that he feels safe at home and does not feel threatened. All review of systems were negative except as mentioned above in the history of present illness and the other review of systems. Vital Signs Vital Signs Vital Signs: 06/12/24 11:40 06/12/24 13:59 06/12/24 14:56 Temperature 36.4 C L 36.6 C Temperature Source Temporal Pulse Rate 104 H 81 85 Respiratory Rate 16 28 H Blood Pressure 142/90 H 144/83 H 147/93 H Blood Pressure Mean 107 103 111 Pulse Ox 96 98 100 Oxygen Delivery Method Room Air Room Air 06/12/24 15:00 Temperature Temperature Source Pulse Rate 84 Respiratory Rate 22 H Blood Pressure 126/79 H Blood Pressure Mean 94 Pulse Ox 96 Oxygen Delivery Method Room Air Weight Weight: 72.4 kg Body Mass Index (BMI) 22.8 Physical Exam Const alert and no apparent distress Constitutional Narrative: Weak voice. Follows commands. HEENT normocephalic and head/scalp atraumatic Neck no lymphadenopathy Neck Narrative: No thyromegaly Resp normal respiratory effort, no retractions, no use of accessory muscles and clear to auscultation bilaterally Cardio regular rate, regular rhythm, S1 normal heart sound and S2 normal heart sound GI normal to inspection, nondistended, normoactive bowel sounds, soft to palpation, non-tender and non-distended Extremity normal to inspection and full ROM Neuro Sensorium / Orientation: awake and alert Psych Psych Narrative: Flat affect Results Lab / Micro Data 06/12/24 12:01 06/12/24 12:01 Labs: Laboratory Results - last 24 hr 06/12/24 12:01: WBC 16.7 H, RBC 3.72 L, Hgb 9.4 L, Hct 31.2 L, MCV 83.9, MCH 25.3 L, MCHC 30.1 L, RDW Std Deviation 47.3 H, RDW Coeff of Antonia 15.5 H, Plt Count 318, MPV 11.0, Immature Gran % (Auto) 3.200 H, Neut % (Auto) 70.8 H, Lymph % (Auto) 17.5 L, [place] % (Auto) 7.2, Eos % (Auto) 0.7, Baso % (Auto) 0.6, Absolute Neuts (auto) 11.8 H, Absolute Lymphs (auto) 2.92, Nucleated RBC % 0, Sodium 134, Potassium 4.3, Chloride Direct 99, Carbon Dioxide 23.3, Anion Gap 11, BUN 26 H, Creatinine 1.3, Estim Creat Clear Calc 54.15, Est GFR (MDRD) Non-Af 61, BUN/Creatinine Ratio 20.3 H, Glucose 161 H, Calcium 10.0, Total Bilirubin 0.31, AST 36, ALT 36, Alkaline Phosphatase 98, Total Protein 7.8, Albumin 3.4, Globulin 4.4 H, Albumin/Globulin Ratio 0.8 L, Lipase 35 06/12/24 13:34: Urine Color Yellow, Urine Clarity Clear, Urine pH 6.0, Ur Specific [place] 1.020, Urine Protein 30 H, Urine Glucose (UA) Normal, Urine Ketones Negative, Urine Occult Blood Negative, Urine Nitrite Negative, Urine Bilirubin Negative, Urine Urobilinogen 4 H, Ur Leukocyte Esterase 25 H, Urine RBC 5-10 SEEN, Urine WBC 0 SEEN, Ur Squamous Epith Cells 0 SEEN, Urine Bacteria 0 SEEN, Urine Mucus 0 SEEN Micro: Microbiology 06/12/24 12:33 Mucosa - Nose SARS-CoV-2, Influenza & RSV (PCR) - Final Imaging Radiology Impression Chest X-Ray 06/12/24 12:40 IMPRESSION: No acute consolidation, pleural effusion or pneumothorax. Reading Location: [facility] Assessment & Plan Assessment/Plan (1) Adult failure to thrive: PLAN: Likely multifactorial due to his extensive surgery that he had about a month ago and just progressively getting weak over the past month. Not able to go up and down stairs. Patient lives in the basement, which she describes being finished, but his kitchen is upstairs. Going up and down stairs but too cumbersome for him. No obvious reversible causes at this time. PT OT evaluate and treat. Case management to work on disposition. PLAN: Plan Chronic conditions Status post aortic aneurysm repair: Chest x-ray shows extensive graft involving his thoracic artery. No evidence of any kind of rupture or compromise at this time. Continue with aspirin and statin. Hypothyroidism: Continue levothyroxine BPH: Continue tamsulosin VTE prophylaxis: Low risk given current observation status. CODE STATUS: Addressed with patient. Patient wishes to be DNR Com[facility] Care arrest. Advised patient that he can change his mind at any time just to inform us as such. Charges/Coding Visit Charges Inpatient E&M: 18734 Init Hosp L2
--- NOTE | 2024-06-12 21:27 | CM.ED ---
Social Work Patient was in today for GI appointment, when appointment was over he did not want to leave stating he needed to be admitted because he was not getting enough care at home.? Nurse from GI office was able to convince him to come through the ED for eval.? ?Patient stated that he lives with his daughter and granddaughter.?Patient feels that his family is not home enough to take care of him and he is too weak to be able to care for himself.?Patient feels he needs a rehabilitation stay to increase his strength. Patient states he lives in the basement and is physically unable to walk up stairs to prepare food so he eats what is brought to him.? Patient wants admitted to TCU.? I explained process and that it may not be an available option.? Patient agreed to look at SNF list if TCU is not able to accept.? Imelda Scales, RESEARCH MANAGEMENT ASSOCIATE, BOOK SOLICITOR
[2024-06-12] MEDS: Tamsulosin HCl 0.4 MG Capsule PO (22:17)
[2024-06-12] MEDS: Pantoprazole Sodium 40 MG Tablet PO (22:17)
[2024-06-12] MEDS: Atorvastatin Calcium 10 MG Tablet 5 MG PO (22:17)
[2024-06-13 02:00] VITALS: BP 111/70; PULSE 96; RESP 16; TEMP 37.3; O2SAT 94
[2024-06-13] MEDS: Levothyroxine 75 MCG Tablet PO (05:59)
--- NOTE | 2024-06-13 08:04 | PCM.PN.HOSP ---
Reason for Visit Reason for Visit: Adult failure to thrive Subjective Subjective No significant issues overnight. Patient is amenable to being placed in a skilled facility at discharge and that process is currently undergoing. Objective Data Objective Data Vital Signs: Vital Signs Temp Pulse Resp BP Pulse Ox O2 Del Method 99.2 F H 96 16 111/70 94 Room Air 06/13/24 02:00 06/13/24 02:00 06/13/24 02:00 06/13/24 02:00 06/13/24 02:00 06/13/24 02:00 Oxygen Delivery Method Room Air Weight: 72.9 kg Body Mass Index (BMI) 23.0 Intake & Output: Intake and Output for Last 24 Hours 06/11/24 06/12/24 06/13/24 23:59 23:59 23:59 Intake Total 300 / 300 300 / 300 Balance 300 / 300 300 / 300 Lab / Micro Data 06/13/24 08:05 06/12/24 12:01 Labs: Laboratory Results - last 24 hr 06/12/24 12:01: WBC 16.7 H, RBC 3.72 L, Hgb 9.4 L, Hct 31.2 L, MCV 83.9, MCH 25.3 L, MCHC 30.1 L, RDW Std Deviation 47.3 H, RDW Coeff of Antonia 15.5 H, Plt Count 318, MPV 11.0, Immature Gran % (Auto) 3.200 H, Neut % (Auto) 70.8 H, Lymph % (Auto) 17.5 L, [place] % (Auto) 7.2, Eos % (Auto) 0.7, Baso % (Auto) 0.6, Absolute Neuts (auto) 11.8 H, Absolute Lymphs (auto) 2.92, Nucleated RBC % 0, Sodium 134, Potassium 4.3, Chloride Direct 99, Carbon Dioxide 23.3, Anion Gap 11, BUN 26 H, Creatinine 1.3, Estim Creat Clear Calc 54.15, Est GFR (MDRD) Non-Af 61, BUN/Creatinine Ratio 20.3 H, Glucose 161 H, Calcium 10.0, Total Bilirubin 0.31, AST 36, ALT 36, Alkaline Phosphatase 98, Total Protein 7.8, Albumin 3.4, Globulin 4.4 H, Albumin/Globulin Ratio 0.8 L, Lipase 35 06/12/24 13:34: Urine Color Yellow, Urine Clarity Clear, Urine pH 6.0, Ur Specific [place] 1.020, Urine Protein 30 H, Urine Glucose (UA) Normal, Urine Ketones Negative, Urine Occult Blood Negative, Urine Nitrite Negative, Urine Bilirubin Negative, Urine Urobilinogen 4 H, Ur Leukocyte Esterase 25 H, Urine RBC 5-10 SEEN, Urine WBC 0 SEEN, Ur Squamous Epith Cells 0 SEEN, Urine Bacteria 0 SEEN, Urine Mucus 0 SEEN Micro: Microbiology 06/12/24 12:33 Mucosa - Nose SARS-CoV-2, Influenza & RSV (PCR) - Final Radiography Diagnostic Testing: Radiology Impression Chest X-Ray 06/12/24 12:40 IMPRESSION: No acute consolidation, pleural effusion or pneumothorax. Reading Location: [facility] Physical Exam Const alert, oriented x3, no apparent distress and average body habitus Constitutional Narrative: Pleasant, older, white male, lying in bed watching television, appears comfortable, nontoxic HEENT head/scalp atraumatic and moist oral mucous membranes HEENT Narrative: Mallampati 3, no thrush Head and Scalp: normocephalic Neck supple Resp normal respiratory effort, no retractions, no use of accessory muscles and clear to auscultation bilaterally Auscultation: Negative for rales, rhonchi or wheezes Cardio regular rate, regular rhythm, S1 normal heart sound, S2 normal heart sound, no murmurs, no rub, no gallops and no clicks GI normal to inspection, nondistended, normoactive bowel sounds and soft to palpation GI Narrative: Mild tenderness in the epigastrium which she states is chronic Extremity no clubbing, cyanosis or edema Extremity Narrative: Pedal pulses are 2+ Neuro oriented x3, moves all extremities and no focal motor deficits Neuro Narrative: Generalized weakness with no focal deficits noted Speech: speech normal Psych affect normal Psych Narrative: Very pleasant, interacts appropriately Assessment & Plan Assessment/Plan (1) Adult failure to thrive: PLAN: Plan Adult failure to thrive -Seems to be multifactorial -No identifiable etiology noted on presentation -PT and OT feel that he should be placed at discharge -patient is amenable and case management is working on finding him a facility and will need pre-CERT Leukocytosis -Etiology unclear -Patient without any signs or symptoms of infection -Will repeat lab in a.m. to trend Thoracic aortic aneurysm -Recent graft repair Peripheral vascular disease/abdominal aortic aneurysm -patient has deferred therapy at this time -Continued outpatient follow-up -Patient is aware that he is at high risk for rupture History of stroke -Continue home aspirin Hypothyroidism -Continue home levothyroxine BPH with obstruction -Continue Flomax GERD -Continue home medication CAD/essential hypertension/hyperlipidemia -Continue home aspirin -Continue home statin -Continue home metoprolol History of tobacco abuse -Remote -Continue ongoing cessation DVT prophylaxis -Start subcu enoxaparin CODE STATUS -DNR CCA okay for short-term intubation Charges/Coding Visit Charges Inpatient E&M: 96937 Subs Hosp L2
[2024-06-13 08:34] LABS: Absolute Lymphocyte Count 3.82 X10^3/uL (0.83-4.51); Basophil# 0.08 X10^3/uL; Basophil% 0.5 % (0-1); Eosinophils% 1.2 % (0-5); Hematocrit 29.1 % (40-54); Hemoglobin 8.8 g/dL (13.0-16.5); Lymphocyte # 3.82 X10^3/ul (0.83-4.51); Lymphocyte % 23.1 % (19-41); Mean Corp Hgb Conc 30.2 g/dL (32-36); Mean Corpuscular Hgb 24.9 pg (27.0-32.0); Mean Corpuscular Volume 82.2 fL (80-94); Mean Platelet Vol. 10.9 fl (6.2-12.0); Monocyte% 10.9 % (0-10); NRBC Flagged by Analyzer 0 % (0-5); Neutrophil # 10.04 X10^3/uL (2.7-7.7); Neutrophil % 60.8 % (47-70); POSITIVE DIFFERENTIAL YES; Platelet Count 299 K/mm3 (150-450); RBC Distribution Width CV 15.5 % (11.6-14.6); RBC Distribution Width SD 46.6 fl (35.1-43.9); Red Blood Count 3.54 M/mm3 (4.6-6.2); White Blood Count 16.5 K/mm3 (4.4-11.0)
[2024-06-13 08:35] LABS: Differential Indicated SCAN CRITERIA MET
[2024-06-13 08:42] VITALS: BP 133/81; PULSE 94; RESP 18; TEMP 36.5; O2SAT 96
[2024-06-13] MEDS: Ensure Plus High Protein 120 ML LIQUID PO ×2 (08:50→11:58)
[2024-06-13] MEDS: Pantoprazole Sodium 40 MG Tablet PO ×2 (08:51→21:46)
[2024-06-13] MEDS: Aspirin E.C. 81 MG Tablet 162 MG PO (08:51)
[2024-06-13 09:48] LABS: Platelet Estimate A (ADEQ); Polychromasia 1+
[2024-06-13 09:49] LABS: Ovalocyte 1+; Tear Drop Cell 1+
[2024-06-13 10:26] VITALS: PULSE 92
[2024-06-13] MEDS: Metoprolol(XL)Succ 25 MG Tablet 75 MG PO (10:26)
[2024-06-13 10:30] VITALS: BP 115/83; BP 124/85; BP 87/60; PULSE 101; PULSE 121; PULSE 70
[2024-06-13] MEDS: Lactated Ringers 1,000 ML 999 ML IV ×2 (10:59→12:16)
--- NOTE | 2024-06-13 12:00 | CASEMGMT ---
Social Work SW met with pt to discuss discharge plan. Pt lives [facility] the [facility] which has a half bath. Kitchen is on the first floor and Full bath is on the second floor. Pt states that the stairs are very difficult for him and he feels very weak. Pt has home health PT/OT through the [place] but pt states this is not enough assistance. Pt is requesting placement at SNF. A list of SNF providers including quality and resource use data and consistent with the patient?s preferred geographic region, medical needs, and insurance network were provided from the [facility]. Pt preferred provider is [facility]. DC family assistant updated and referral to be sent. NATHAN Gallegos
--- NOTE | 2024-06-13 12:24 | CASEMGMT ---
Addendum entered by Cheri Medina 06/13/24 13:33: [facility] has no bed availability. SW updated. Cheri Medina DC Planning Asst. Original Note: Discharge Planning Referral sent to [facility] [place]. Cheri Medina DC Planning Asst.
[2024-06-13 13:35] VITALS: BP 128/78; PULSE 86; RESP 18; TEMP 36.9; O2SAT 100
--- NOTE | 2024-06-13 15:05 | CASEMGMT ---
Social Work [facility] is unable to accept. SW met with pt and notified of this. Additional choices are 1. [facility] 2. [facility]. [facility]IR[facility] contact lens assistant updated and to make referrals. NATHAN Gallegos
--- NOTE | 2024-06-13 16:13 | CASEMGMT ---
Addendum entered by Cheri Medina 06/16/24 08:34: [facility] declined. Cheri Medina DC Planning Asst. Original Note: Discharge Planning Referral sent to [facility] and [facility]. Cheri Medina DC Planning Asst.
--- NOTE | 2024-06-13 17:24 | CASEMGMT ---
Met with patient to complete BUTT form. BUTT form explained to patient who voiced understanding and signed form. Original form placed in pt?s chart and copy provided to patient. Cheri Medina, Discharge Planning Asst
[2024-06-13 20:01] VITALS: BP 120/70; PULSE 84; RESP 18; TEMP 37.1; O2SAT 96
[2024-06-13] MEDS: Famotidine 20 MG Tablet 40 MG PO (21:46)
[2024-06-13] MEDS: Atorvastatin Calcium 10 MG Tablet 5 MG PO (21:46)
[2024-06-13] MEDS: Ondansetron 4 MG/2 ML Vial IV (21:46)
[2024-06-13] MEDS: Tamsulosin HCl 0.4 MG Capsule PO (21:46)
[2024-06-13] MEDS: Morphine 2 MG/ML Syringe IV (21:47)
[2024-06-14 03:18] VITALS: BP 122/80; PULSE 81; RESP 18; TEMP 36.7; O2SAT 96
[2024-06-14] MEDS: Levothyroxine 75 MCG Tablet PO (06:18)
[2024-06-14 09:15] VITALS: BP 119/75; PULSE 77; RESP 18; TEMP 36.7; O2SAT 97
[2024-06-14 10:12] VITALS: BP 119/75; PULSE 77
[2024-06-14] MEDS: Aspirin E.C. 81 MG Tablet 162 MG PO (10:12)
[2024-06-14] MEDS: Pantoprazole Sodium 40 MG Tablet PO ×2 (10:12→23:00)
[2024-06-14] MEDS: Metoprolol(XL)Succ 25 MG Tablet 75 MG PO (10:12)
[2024-06-14] MEDS: Ensure Plus High Protein 120 ML LIQUID PO ×3 (10:13→16:06)
[2024-06-14] MEDS: Enoxaparin 40 MG/0.4 ML Syringe SC (10:16)
--- NOTE | 2024-06-14 15:56 | PN.HOSP_ITS ---
Reason for Visit Reason for Visit: Diagnoses Adult failure to thrive (06/12/24) Subjective Subjective Asymptomatic at this time, no active concerns Objective Data Objective Data Vital Signs: Vital Signs Temp Pulse Resp BP Pulse Ox O2 Del Method 98.1 F 77 18 119/75 97 Room Air 06/14/24 09:15 06/14/24 10:12 06/14/24 09:15 06/14/24 10:12 06/14/24 09:15 06/14/24 09:15 Oxygen Delivery Method Room Air Weight: 160 lb 11.472 oz Body Mass Index (BMI) 23.0 Intake & Output: Intake and Output for Last 24 Hours 06/12/24 06/13/24 06/14/24 23:59 23:59 23:59 Intake Total 300 / 300 3100 / 3100 800 / 800 Balance 300 / 300 3100 / 3100 800 / 800 Medical Nutrition Assessment Dietitian: Malnutrition Criteria Met Start: 06/13/24 14:25 Freq: Status: Active Protocol: Document 06/13/24 14:25 OMAR (Rec: 06/13/24 14:25 OMAR [id number]) Nutrition Malnutrition Evidence of Yes Malnutrition Exists Malnutrition (severe Acute Illness/Injury ): Evidenced By Suboptimal Energy Intake (Severe),Weight Loss (Severe) Clinical Problem Acute Disease or Injury Related Malnutrition Etiology related to recent surgery and resulting pain/spending most of time in bed so inadequate energy intake Signs/Symptoms as evidenced by 8.4% unplanned wt loss and po intake meeting <75% of est 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 Problem Recommendation Dietitian Continue Cardiac diet as ordered Recommendations/ Continue 120 ml ensure plus high protein tid w/ medpass Changes Monitor need for additional ONS if po intake fails and/ or wt loss continues Lab / Micro Data 06/13/24 08:05 06/12/24 12:01 Micro: Microbiology 06/12/24 12:33 Mucosa - Nose SARS-CoV-2, Influenza & RSV (PCR) - Final Physical Exam Const alert, oriented x3 and no apparent distress HEENT head/scalp atraumatic and moist oral mucous membranes Eyes PERRL and EOMs intact bilaterally Neck no lymphadenopathy Resp normal respiratory effort Cardio regular rate and regular rhythm GI normal to inspection, nondistended, normoactive bowel sounds Extremity normal to inspection Neuro oriented x3 and moves all extremities Assessment & Plan Assessment/Plan (1) Adult failure to thrive: PLAN: Plan # Adult failure to thrive -Seems to be multifactorial -No identifiable etiology noted on presentation -PT and OT feel that he should be placed at discharge -patient is amenable and case management is working on finding him a facility and will need pre-CERT Leukocytosis -Etiology unclear -Patient without any signs or symptoms of infection -Will repeat lab in a.m. to trend Thoracic aortic aneurysm -Recent graft repair Peripheral vascular disease/abdominal aortic aneurysm -patient has deferred therapy at this time -Continued outpatient follow-up -Patient is aware that he is at high risk for rupture History of stroke -Continue home aspirin Hypothyroidism -Continue home levothyroxine BPH with obstruction -Continue Flomax GERD -Continue home medication CAD/essential hypertension/hyperlipidemia -Continue home aspirin -Continue home statin -Continue home metoprolol History of tobacco abuse -Remote -Continue ongoing cessation DVT prophylaxis -Start subcu enoxaparin Charges/Coding Visit Charges Inpatient E&M: 59659 Init Hosp L1
[2024-06-14 16:05] VITALS: BP 136/90; PULSE 95; RESP 16; TEMP 36.6; O2SAT 98
[2024-06-14] MEDS: Famotidine 20 MG Tablet 40 MG PO (23:00)
[2024-06-14] MEDS: Tamsulosin HCl 0.4 MG Capsule PO (23:00)
[2024-06-14] MEDS: Atorvastatin Calcium 10 MG Tablet 5 MG PO (23:00)
[2024-06-14 23:05] VITALS: BP 144/90; PULSE 87; RESP 16; TEMP 37; O2SAT 97
[2024-06-15 04:16] VITALS: BP 131/87; PULSE 88; RESP 16; TEMP 36.9; O2SAT 97
[2024-06-15] MEDS: Levothyroxine 75 MCG Tablet PO (06:00)
[2024-06-15 09:43] VITALS: BP 136/87; PULSE 82; RESP 16; TEMP 36.8; O2SAT 98
[2024-06-15] MEDS: Pantoprazole Sodium 40 MG Tablet PO ×2 (09:43→22:14)
[2024-06-15 10:25] LABS: Hematocrit 27.7 % (40-54); Hemoglobin 8.2 g/dL (13.0-16.5); Mean Corp Hgb Conc 29.6 g/dL (32-36); Mean Corpuscular Hgb 24.6 pg (27.0-32.0); Mean Corpuscular Volume 83.2 fL (80-94); Mean Platelet Vol. 10.5 fl (6.2-12.0); POSITIVE COUNT YES; POSITIVE MORPHOLOGY YES; Platelet Count 314 K/mm3 (150-450); RBC Distribution Width CV 15.8 % (11.6-14.6); RBC Distribution Width SD 47.5 fl (35.1-43.9); Red Blood Count 3.33 M/mm3 (4.6-6.2); White Blood Count 14.6 K/mm3 (4.4-11.0)
[2024-06-15 10:28] LABS: Differential Indicated MANUAL DIFF
[2024-06-15 10:53] LABS: ALB/GLOB Ratio 0.7 RATIO (0.9-2.4); AST(SGOT) 38 U/L (<=37); Alanine Aminotransfer ALT/SGPT 48 U/L (<=46); Alkaline Phosphatase 88 U/L (40-129); Anion Gap 10 (5-15); BUN 17 mg/dL (4-19); BUN/Creat Ratio 15.7 RATIO (10-20); Calcium 9.5 mg/dL (7.6-11.0); Carbon Dioxide 24.2 mmol/L (22.0-29.0); Chloride 101 mmol/L (96-108); Creatinine, Serum 1.06 mg/dL (0.70-1.20); EST Glomerular Filtration Rate 75 (>60); Eosinophil 1 % (0-5); Estimated Creatinine Clearance 66.86 ml/min (50-250); Globulin 4.1 g/dL (2.2-4.2); Glucose 118 mg/dL (70-99); Lymphocyte 25 % (19-41); Metamyelocyte 2 % (0-1); Monocyte 10 % (0-10); Myelocyte 1 % (0-0); Neutrophil-Band 1 % (0-5); Neutrophil-Segmented 60 % (47-70); Potassium 4.6 mmol/L (3.3-5.1); Protein, Total 7.1 g/dL (5.9-8.4); Sodium Level 135 mmol/L (133-145); Total Bilirubin 0.27 mg/dL (0.00-1.30); Total Cells Counted 100 (MANUAL DIFF)
[2024-06-15 10:54] LABS: Platelet Estimate ADEQUATE (ADEQ); Red Cell Morphology NORM C+C NORMAL (NORM C&C)
[2024-06-15 10:55] LABS: Absolute Lymphocyte Count 3.64 X10^3/uL (0.83-4.51); Absolute Neutrophil Count 8.9 X10^3/uL (2.0-7.7)
[2024-06-15 13:00] VITALS: PULSE 82
[2024-06-15] MEDS: Metoprolol(XL)Succ 25 MG Tablet 75 MG PO (13:00)
[2024-06-15] MEDS: Aspirin E.C. 81 MG Tablet 162 MG PO (13:01)
[2024-06-15] MEDS: Enoxaparin 40 MG/0.4 ML Syringe SC (13:01)
--- NOTE | 2024-06-15 14:10 | PCM.PN.HOSP ---
Reason for Visit Reason for Visit: Diagnoses Adult failure to thrive (06/12/24) Subjective Subjective Asymptomatic Objective Data Objective Data Vital Signs: Vital Signs Temp Pulse Resp BP Pulse Ox O2 Del Method 98.2 F 82 16 136/87 H 98 Room Air 06/15/24 09:43 06/15/24 13:00 06/15/24 09:43 06/15/24 09:43 06/15/24 09:43 06/15/24 09:43 Oxygen Delivery Method Room Air Weight: 160 lb 11.472 oz Body Mass Index (BMI) 23.0 Intake & Output: Intake and Output for Last 24 Hours 06/13/24 06/14/24 06/15/24 23:59 23:59 23:59 Intake Total 3100 / 3100 800 / 800 300 / 300 Balance 3100 / 3100 800 / 800 300 / 300 Medical Nutrition Assessment Dietitian: Malnutrition Criteria Met Start: 06/13/24 14:25 Freq: Status: Active Protocol: Document 06/13/24 14:25 OMAR (Rec: 06/13/24 14:25 [facility] [id number]) Nutrition Malnutrition Evidence of Yes Malnutrition Exists Malnutrition (severe Acute Illness/Injury ): Evidenced By Suboptimal Energy Intake (Severe),Weight Loss (Severe) Clinical Problem Acute Disease or Injury Related Malnutrition Etiology related to recent surgery and resulting pain/spending most of time in bed so inadequate energy intake Signs/Symptoms as evidenced by 8.4% unplanned wt loss and po intake meeting <75% of 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 Problem Recommendation Dietitian Continue Cardiac diet as ordered Recommendations/ Continue 120 ml ensure plus high protein tid w/ medpass Changes Monitor need for additional ONS if po intake fails and/ or wt loss continues Lab / Micro Data 06/15/24 10:01 06/15/24 10:01 Labs: Laboratory Results - last 24 hr 06/15/24 10:01: WBC 14.6 H, RBC 3.33 L, Hgb 8.2 L, Hct 27.7 L, MCV 83.2, MCH 24.6 L, MCHC 29.6 L, RDW Std Deviation 47.5 H, RDW Coeff of Antonia 15.8 H, Plt Count 314, MPV 10.5, Neut % (Auto) Not Reportable, Absolute Neuts (auto) 8.9 H, Absolute Lymphs (auto) 3.64, Total Counted 100, Neutrophils % (Manual) 60, Band Neutrophils % 1, Lymphocytes % (Manual) 25, Monocytes % (Manual) 10, Eosinophils % (Manual) 1, Metamyelocytes % 2 H, Myelocytes % 1 H, Diff Path Review May foll, Platelet Estimate ADEQUATE, RBC Morphology NORM C+C, Sodium 135, Potassium 4.6, Chloride Direct 101, Carbon Dioxide 24.2, Anion Gap 10, BUN 17, Creatinine 1.06, Estim Creat Clear Calc 66.86, Est GFR (MDRD) Non-Af 75, BUN/Creatinine Ratio 15.7, Glucose 118 H, Calcium 9.5, Total Bilirubin 0.27, AST 38, ALT 48 H, Alkaline Phosphatase 88, Total Protein 7.1, Albumin 3.0 L, Globulin 4.1, Albumin/Globulin Ratio 0.7 L Micro: Microbiology 06/12/24 12:33 Mucosa - Nose SARS-CoV-2, Influenza & RSV (PCR) - Final Physical Exam Eyes PERRL Neck no lymphadenopathy Resp normal respiratory effort Cardio regular rate and regular rhythm GI normal to inspection, nondistended, normoactive bowel sounds Extremity normal to inspection and full ROM Neuro oriented x3 and CN's II-XII intact bilaterally Assessment & Plan Assessment/Plan (1) Adult failure to thrive: PLAN: Plan # Adult failure to thrive -Seems to be multifactorial -No identifiable etiology noted on presentation -PT and OT feel that he should be placed at discharge -patient is amenable and case management is working on finding him a facility and will need pre-CERT # Leukocytosis -Etiology unclear -Patient without any signs or symptoms of infection -Will repeat lab in a.m. to trend # Thoracic aortic aneurysm -Recent graft repair # Peripheral vascular disease/abdominal aortic aneurysm -patient has deferred therapy at this time -Continued outpatient follow-up -Patient is aware that he is at high risk for rupture # History of stroke -Continue home aspirin # Hypothyroidism -Continue home levothyroxine # BPH with obstruction -Continue Flomax # GERD -Continue home medication # CAD/essential hypertension/hyperlipidemia -Continue home aspirin -Continue home statin -Continue home metoprolol # History of tobacco abuse -Remote -Continue ongoing cessation # DVT prophylaxis -Continue subcu enoxaparin
[2024-06-15 17:00] VITALS: BP 104/73; PULSE 87; RESP 16; TEMP 36.7; O2SAT 99
[2024-06-15 21:30] VITALS: BP 131/89; PULSE 101; RESP 16; TEMP 36.8; O2SAT 99
[2024-06-15] MEDS: Famotidine 20 MG Tablet 40 MG PO (22:14)
[2024-06-15] MEDS: Tamsulosin HCl 0.4 MG Capsule PO (22:14)
[2024-06-15] MEDS: Atorvastatin Calcium 10 MG Tablet 5 MG PO (22:14)
[2024-06-16 03:30] VITALS: BP 134/74; PULSE 86; RESP 16; TEMP 37; O2SAT 98
[2024-06-16] MEDS: Levothyroxine 75 MCG Tablet PO (05:59)
[2024-06-16 09:00] VITALS: BP 114/80; PULSE 92; RESP 16; TEMP 37.3; O2SAT 98
[2024-06-16 09:25] VITALS: PULSE 92
[2024-06-16] MEDS: Ondansetron 4 MG/2 ML Vial IV (09:25)
[2024-06-16] MEDS: Metoprolol(XL)Succ 25 MG Tablet 75 MG PO (09:25)
[2024-06-16] MEDS: Aspirin E.C. 81 MG Tablet 162 MG PO (09:26)
[2024-06-16] MEDS: Pantoprazole Sodium 40 MG Tablet PO ×2 (09:26→22:56)
[2024-06-16] MEDS: Enoxaparin 40 MG/0.4 ML Syringe SC (09:27)
[2024-06-16] MEDS: Acetaminophen 325 MG Tablet 650 MG PO (09:27)
--- NOTE | 2024-06-16 11:22 | PCM.PN.HOSP ---
Reason for Visit Reason for Visit: Diagnoses Adult failure to thrive (06/12/24) Objective Data Objective Data Vital Signs: Vital Signs Temp Pulse Resp BP Pulse Ox O2 Del Method 99.1 F 92 16 114/80 98 Room Air 06/16/24 09:00 06/16/24 09:25 06/16/24 09:00 06/16/24 09:00 06/16/24 09:00 06/16/24 09:00 Oxygen Delivery Method Room Air Weight: 160 lb 11.472 oz Body Mass Index (BMI) 23.0 Intake & Output: Intake and Output for Last 24 Hours 06/14/24 06/15/24 06/16/24 23:59 23:59 23:59 Intake Total 800 / 800 1000 / 1200 400 / 400 Balance 800 / 800 1000 / 1200 400 / 400 Medical Nutrition Assessment Dietitian: Malnutrition Criteria Met Start: 06/13/24 14:25 Freq: Status: Active Protocol: Document 06/13/24 14:25 OMAR (Rec: 06/13/24 14:25 [facility] [id number]) Nutrition Malnutrition Evidence of Yes Malnutrition Exists Malnutrition (severe Acute Illness/Injury ): Evidenced By Suboptimal Energy Intake (Severe),Weight Loss (Severe) Clinical Problem Acute Disease or Injury Related Malnutrition Etiology related to recent surgery and resulting pain/spending most of time in bed so inadequate energy intake Signs/Symptoms as evidenced by 8.4% unplanned wt loss and po intake meeting <75% of est nutritional needs x ~ 1 month lpta Status Active Problem Recommendation Dietitian Continue Cardiac diet as ordered Recommendations/ Continue 120 ml ensure plus high protein tid w/ medpass Changes Monitor need for additional ONS if po intake fails and/ or wt loss continues Lab / Micro Data 06/15/24 10:01 06/15/24 10:01 Micro: Microbiology 06/12/24 12:33 Mucosa - Nose SARS-CoV-2, Influenza & RSV (PCR) - Final Physical Exam Narrative Seen and examined. No acute issues. Generalized weakness. Failure to thrive. USP pre-CERT pending. Physical exam General: Alert, Oriented x3, Cooperative HEENT: Atraumatic, PERRLA, EOMI, Normocephalic Oral: No Gingival or Mucosal Lesions/ Ulcerations Neck: Supple, No JVD, Negative Carotid Bruits Chest wall/Lungs: Air entry diminished in bilateral lung bases. No crepitation/rhonchi Cardiovascular: Regular rate, Regular Rhythm, Open heart surgery. Bioprosthetic valve systolic murmur present. Abdomen: Bowel Sounds Present, Soft, Non Tender, Non-Distended : No dysuria. No renal angle tenderness. No suprapubic tenderness. Extremities: No edema, Capillary Refill Less than 3 Seconds Skin: No rashes, No breakdown Musculoskeletal: No Tenderness to Palpation of Joints or Extremities. Muscle strength 4/5 at knees and hip joint Neurological: Cranial nerves II-XII grossly intact, DTR 2+/4. No acute focal neurological deficit. Psych/Mental Status: Normal Affect, Appropriate. Assessment & Plan Assessment/Plan (1) Adult failure to thrive: PLAN: Plan 68-year-old gentleman was admitted with generalized weakness, physically deconditioned after recent surgery. Approximately a month ago patient underwent extensive aneurysm repair at [facility] # Adult failure to thrive -Seems to be multifactorial -No identifiable etiology noted on presentation -PT and OT feel that he should be placed at discharge -patient is amenable and case management is working on finding him a facility and pre-CERT pending # Leukocytosis, etiology unclear. No acute signs or symptoms of infection. Leukocytosis improving. # Thoracic aortic aneurysm -Recent graft repair. 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 He also had open heart surgery with ascending aorta replacement and bioprosthetic valve replacement. # History of tobacco abuse -Remote -Continue ongoing cessation # DVT prophylaxis -Continue subcu enoxaparin Charges/Coding Visit Charges Inpatient E&M: 24972 [facility] Hosp L2
[2024-06-16 14:00] VITALS: BP 129/84; PULSE 82; RESP 14; TEMP 36.4; O2SAT 99
--- NOTE | 2024-06-16 16:29 | CASEMGMT ---
Social Work- SW checked in with pt to let pt know that there has not been a determination on referral by [facility] at this time. SW remains available to follow. NATHAN Hunter
[2024-06-16 22:52] VITALS: BP 114/89; PULSE 81; RESP 16; TEMP 36.6; O2SAT 96
[2024-06-16] MEDS: Tamsulosin HCl 0.4 MG Capsule PO (22:56)
[2024-06-16] MEDS: Atorvastatin Calcium 10 MG Tablet 5 MG PO (22:56)
[2024-06-16] MEDS: Famotidine 20 MG Tablet 40 MG PO (22:56)
[2024-06-17 02:45] VITALS: BP 128/83; PULSE 88; RESP 14; TEMP 36.7; O2SAT 96
[2024-06-17] MEDS: Levothyroxine 75 MCG Tablet PO (06:57)
[2024-06-17 07:57] LABS: Hematocrit 26.5 % (40-54); Hemoglobin 7.9 g/dL (13.0-16.5); Mean Corp Hgb Conc 29.8 g/dL (32-36); Mean Corpuscular Hgb 24.9 pg (27.0-32.0); Mean Corpuscular Volume 83.6 fL (80-94); Mean Platelet Vol. 10.6 fl (6.2-12.0); POSITIVE COUNT YES; POSITIVE DIFFERENTIAL YES; POSITIVE MORPHOLOGY YES; Platelet Count 341 K/mm3 (150-450); RBC Distribution Width CV 15.7 % (11.6-14.6); Red Blood Count 3.17 M/mm3 (4.6-6.2); White Blood Count 14.8 K/mm3 (4.4-11.0)
[2024-06-17 08:05] LABS: Differential Indicated MANUAL DIFF
[2024-06-17] MEDS: Ensure Plus High Protein 120 ML LIQUID PO ×2 (08:07→13:30)
[2024-06-17 08:45] VITALS: BP 122/84; PULSE 80; RESP 16; TEMP 36.8; O2SAT 99
--- NOTE | 2024-06-17 09:06 | CASEMGMT ---
Discharge Planning Requested updates sent to [facility] with note asking to confirm bed availability (had open beds on Sunday, confirming that is still the case). Cheri Medina DC Planning Asst.
[2024-06-17 09:29] VITALS: PULSE 80; O2SAT 99
[2024-06-17] MEDS: Aspirin E.C. 81 MG Tablet 162 MG PO (09:58)
[2024-06-17 09:59] VITALS: BP 122/84; PULSE 80
[2024-06-17] MEDS: Pantoprazole Sodium 40 MG Tablet PO ×2 (09:59→22:33)
[2024-06-17] MEDS: Metoprolol(XL)Succ 25 MG Tablet 75 MG PO (09:59)
[2024-06-17] MEDS: Enoxaparin 40 MG/0.4 ML Syringe SC (10:00)
[2024-06-17 10:15] LABS: Eosinophil 3 % (0-5); Lymphocyte 31 % (19-41); Metamyelocyte 4 % (0-1); Neutrophil-Band 1 % (0-5); Total Cells Counted 100 (MANUAL DIFF)
[2024-06-17 10:16] LABS: Monocyte 5 % (0-10); Neutrophil-Segmented 56 % (47-70)
[2024-06-17 10:17] LABS: Ovalocyte 1+; Polychromasia 1+
[2024-06-17 10:18] LABS: Platelet Estimate A (ADEQ)
[2024-06-17 10:19] LABS: Absolute Lymphocyte Count 4.59 X10^3/uL (0.83-4.51); Absolute Neutrophil Count 8.4 X10^3/uL (2.0-7.7); Pathologist Review May foll
--- NOTE | 2024-06-17 10:46 | CASEMGMT ---
[facility] has accepted and will submit for precert. SW updated. Cheri Medina DC Planning Asst.
--- NOTE | 2024-06-17 12:15 | RAD_ITS ---
PROCEDURE: ABD INC DECUB AND/OR ERECT REASON FOR EXAM: EPIGASTRIC COLIC PAIN TECHNIQUE: Flat and upright views of the abdomen were obtained. COMPARISON: 11/09/2022 FINDINGS: No visible bowel dilatation. Suspect splenomegaly, roughly 14.8 cm coronal. Sternotomy with partially imaged valvular prosthesis. Partially imaged aortic stent/graft. Marked aneurysmal dilatation of the tortuous thoracic and abdominal aorta, not well evaluated better seen on previous CTA. Right iliac stent/graft. Surgical clips in the inguinal regions. Suspect demineralization. RAD/Abd Inc Decub and/or Erect IMPRESSION: 1. No visible acute abnormality. If unexplained symptoms persist, consider CT. 2. Suspect mild splenomegaly. 3. Additional description as above including marked aneurysmal dilatation of th e tortuous aorta, not well evaluated, better depicted on comparison CTA 11/09/2022. Reading Location: [id number]
[2024-06-17] MEDS: Senna/Docusate Sodium 1 Tablet 2 TABLET PO ×2 (13:26→22:34)
[2024-06-17] MEDS: Polyethylene Glycol 3350 17 GM PACKET PO (13:27)
[2024-06-17 14:48] VITALS: BP 132/80; PULSE 56; RESP 15; TEMP 36.7; O2SAT 93
--- NOTE | 2024-06-17 16:30 | PCM.PN.HOSP ---
Reason for Visit Reason for Visit: Diagnoses Adult failure to thrive (06/12/24) Objective Data Objective Data Vital Signs: Vital Signs Temp Pulse Resp BP Pulse Ox O2 Del Method 98.1 F 56 L 15 132/80 H 93 Room Air 06/17/24 14:48 06/17/24 14:48 06/17/24 14:48 06/17/24 14:48 06/17/24 14:48 06/17/24 14:48 Oxygen Delivery Method Room Air Weight: 160 lb 11.472 oz Body Mass Index (BMI) 23.0 Intake & Output: Intake and Output for Last 24 Hours 06/15/24 06/16/24 06/17/24 23:59 23:59 23:59 Intake Total 1000 / 1200 400 / 400 150 / 150 Balance 1000 / 1200 400 / 400 150 / 150 Medical Nutrition Assessment Dietitian: Malnutrition Criteria Met Start: 06/13/24 14:25 Freq: Status: Active Protocol: Document 06/13/24 14:25 [facility] (Rec: 06/13/24 14:25 [facility] [id number]) Nutrition Malnutrition Evidence of Yes Malnutrition Exists Malnutrition (severe Acute Illness/Injury ): Evidenced By Suboptimal Energy Intake (Severe),Weight Loss (Severe) Clinical Problem Acute Disease or Injury Related Malnutrition Etiology related to recent surgery and resulting pain/spending most of time in bed so inadequate energy intake Signs/Symptoms as evidenced by 8.4% unplanned wt loss and po intake meeting <75% 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 Problem Recommendation Dietitian Continue Cardiac diet as ordered Recommendations/ Continue 120 ml ensure plus high protein tid w/ medpass Changes Monitor need for additional ONS if po intake fails and/ or wt loss continues Lab / Micro Data 06/17/24 07:33 06/18/24 07:05 Labs: Laboratory Results - last 24 hr 06/17/24 07:33: WBC 14.8 H, RBC 3.17 L, Hgb 7.9 L, Hct 26.5 L, MCV 83.6, MCH 24.9 L, MCHC 29.8 L, RDW Std Deviation 48.0 H, RDW Coeff of Antonia 15.7 H, Plt Count 341, MPV 10.6, Neut % (Auto) Not Reportable, Absolute Neuts (auto) 8.4 H, Absolute Lymphs (auto) 4.59 H, Total Counted 100, Neutrophils % (Manual) 56, Band Neutrophils % 1, Lymphocytes % (Manual) 31, Monocytes % (Manual) 5, Eosinophils % (Manual) 3, Metamyelocytes % 4 H, Diff Path Review May foll, Platelet Estimate A, Polychromasia 1+, Ovalocytes 1+ Micro: Microbiology 06/12/24 12:33 Mucosa - Nose SARS-CoV-2, Influenza & RSV (PCR) - Final Radiography Diagnostic Testing: Radiology Impression Abdomen X-Ray 06/17/24 12:15 IMPRESSION: 1. No visible acute abnormality. If unexplained symptoms persist, consider CT. 2. Suspect mild splenomegaly. 3. Additional description as above including marked aneurysmal dilatation of the tortuous aorta, not well evaluated, better depicted on comparison CTA 11/09/2022. Reading Location: [facility] Physical Exam Narrative Seen and examined. Patient complain of intermittent epigastric pain which last for 10 to 15-minute, colicky in nature. KUB ordered. It shows no visible acute abnormality. Suspect mild splenomegaly. . Generalized weakness. Failure to thrive. longterm pre-CERT pending. On a stool softener. Physical exam General: Alert, Oriented x3, Cooperative HEENT: Atraumatic, PERRLA, EOMI, Normocephalic Oral: No Gingival or Mucosal Lesions/ Ulcerations Neck: Supple, No JVD, Negative Carotid Bruits Chest wall/Lungs: Air entry diminished in bilateral lung bases. No crepitation/rhonchi Cardiovascular: Regular rate, Regular Rhythm, Open heart surgery. Bioprosthetic valve systolic murmur present. Abdomen: Bowel Sounds Present, Soft, Non Tender, Non-Distended : No dysuria. No renal angle tenderness. No suprapubic tenderness. Extremities: No edema, Capillary Refill Less than 3 Seconds Skin: No rashes, No breakdown Musculoskeletal: No Tenderness to Palpation of Joints or Extremities. Muscle strength 4/5 at knees and hip joint Neurological: Cranial nerves II-XII grossly intact, DTR 2+/4. No acute focal neurological deficit. Psych/Mental Status: Normal Affect, Appropriate. Assessment & Plan Assessment/Plan (1) Adult failure to thrive: PLAN: Plan 68-year-old gentleman was admitted with generalized weakness, physically deconditioned after recent surgery. Approximately a month ago patient underwent extensive aneurysm repair at [facility] # Adult failure to thrive -Seems to be multifactorial -No identifiable etiology noted on presentation -PT and OT feel that he should be placed at discharge -patient is amenable and case management is working on finding him a facility and pre-CERT pending Mild constipation with gas: Patient on senna S2 tablet twice daily. KUB shows nonspecific bowel gas schedule. Fecal matter on the descending and sigmoid colon. # Leukocytosis, etiology unclear. No acute signs or symptoms of infection. Leukocytosis improving. # Thoracic aortic aneurysm -Recent graft repair. 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 He also had open heart surgery with ascending aorta replacement and bioprosthetic valve replacement. # History of tobacco abuse -Remote -Continue ongoing cessation # DVT prophylaxis -Continue subcu enoxaparin Charges/Coding Visit Charges Inpatient E&M: 28781 Subs Hosp L2
[2024-06-17 22:31] VITALS: BP 122/82; PULSE 89; RESP 14; TEMP 37.1; O2SAT 95
[2024-06-17] MEDS: Tamsulosin HCl 0.4 MG Capsule PO (22:33)
[2024-06-17] MEDS: Famotidine 20 MG Tablet 40 MG PO (22:33)
[2024-06-17] MEDS: Atorvastatin Calcium 10 MG Tablet 5 MG PO (22:34)
[2024-06-18 04:30] VITALS: BP 123/78; PULSE 90; RESP 16; TEMP 36.9; O2SAT 97
[2024-06-18] MEDS: Levothyroxine 75 MCG Tablet PO (06:55)
[2024-06-18 08:21] LABS: Anion Gap 12 (5-15); BUN 19 mg/dL (4-19); Calcium,Total 9.6 mg/dL (7.6-11.0); Carbon Dioxide 24.5 mmol/L (21.0-32.0); Chloride 101 mmol/L (98-108); Creatinine, Serum 1.11 mg/dL (0.70-1.20); EST Glomerular Filtration Rate 71 (>60); Estimated Creatinine Clearance 63.85 ml/min (50-250); Glucose 118 mg/dL (70-99); Potassium 4.8 mmol/L (3.3-5.1); Sodium Level 137 mmol/L (133-145)
[2024-06-18 08:27] VITALS: BP 122/86; PULSE 88; RESP 18; TEMP 37.3; O2SAT 98
[2024-06-18 08:29] VITALS: PULSE 86
[2024-06-18] MEDS: Metoprolol(XL)Succ 25 MG Tablet 75 MG PO (08:29)
[2024-06-18] MEDS: Aspirin E.C. 81 MG Tablet 162 MG PO (08:30)
[2024-06-18] MEDS: Pantoprazole Sodium 40 MG Tablet PO ×2 (08:30→20:00)
[2024-06-18] MEDS: Enoxaparin 40 MG/0.4 ML Syringe SC (08:30)
--- NOTE | 2024-06-18 11:11 | CASEMGMT ---
Social Work- Pt has directives on chart naming Kylie Platt as primary agent. NATHAN Hnuter
--- NOTE | 2024-06-18 13:35 | CASEMGMT ---
Social Work- SW met with pt to update on precert pending status. Pt reports that he would like information on [facility] facilities. SW provided education that SW will have to verify service connectedness, then could obtain a list, but [facility] as [facility] would not be able to remain in the hospital due to changing facilities, as pt is medically ready. Pt agreeable to plan. DEBORAH called [place] and spoke with Iraj Nicole ([phone] ext [phone]), director social welfare Meenu hannah, who reports that pt is not service connected for SNF care. SW updated pt. Pt agreeable to current plan for discharge. Plan: [facility]; pend precert NATHAN Hunter
[2024-06-18 13:55] LABS: Pathologist Review Reviewed
[2024-06-18 16:00] VITALS: BP 121/70; PULSE 82; RESP 20; TEMP 36.6; O2SAT 97
[2024-06-18] MEDS: Ensure Plus High Protein 120 ML LIQUID PO (16:00)
[2024-06-18 16:09] VITALS: RESP 20; O2SAT 96
--- NOTE | 2024-06-18 16:40 | PCM.PN.HOSP ---
Reason for Visit Reason for Visit: Diagnoses Adult failure to thrive (06/12/24) Objective Data Objective Data Vital Signs: Vital Signs Temp Pulse Resp BP Pulse Ox O2 Del Method 97.8 F 82 20 H 121/70 H 96 Room Air 06/18/24 16:00 06/18/24 16:00 06/18/24 16:09 06/18/24 16:00 06/18/24 16:09 06/18/24 16:09 Oxygen Delivery Method Room Air Weight: 160 lb 11.472 oz Body Mass Index (BMI) 23.0 Intake & Output: Intake and Output for Last 24 Hours 06/16/24 06/17/24 06/18/24 23:59 23:59 23:59 Intake Total 400 / 400 150 / 150 Balance 400 / 400 150 / 150 Medical Nutrition Assessment Dietitian: Malnutrition Criteria Met Start: 06/13/24 14:25 Freq: Status: Active Protocol: Document 06/13/24 14:25 OMAR (Rec: 06/13/24 14:25 [facility] [id number]) Nutrition Malnutrition Evidence of Yes Malnutrition Exists Malnutrition (severe Acute Illness/Injury ): Evidenced By Suboptimal Energy Intake (Severe),Weight Loss (Severe) Clinical Problem Acute Disease or Injury Related Malnutrition Etiology related to recent surgery and resulting pain/spending most of time in bed so inadequate energy intake Signs/Symptoms as evidenced by 8.4% unplanned wt loss and po intake meeting <75% of est nutritional needs x ~ 1 month pharmacometrician Status Active Problem Recommendation Dietitian Continue Cardiac diet as ordered Recommendations/ Continue 120 ml ensure plus high protein tid w/ medpass Changes Monitor need for additional ONS if po intake fails and/ or wt loss continues Lab / Micro Data 06/17/24 07:33 06/18/24 07:05 Labs: Laboratory Results - last 24 hr 06/15/24 10:01: Diff Path Review Reviewed 06/18/24 07:05: Sodium 137, Potassium 4.8, Chloride 101, Carbon Dioxide 24.5, Anion Gap 12, BUN 19, Creatinine 1.11, Estim Creat Clear Calc 63.85, Est GFR (MDRD) Non-Af 71, BUN/Creatinine Ratio 17.0, Glucose 118 H, Calcium 9.6 Micro: Microbiology 06/12/24 12:33 Mucosa - Nose SARS-CoV-2, Influenza & RSV (PCR) - Final Physical Exam Narrative Seen and examined. Mild dyspeptic symptoms with feeling of bloating and gas. Denies abdominal pain. Dulcolax oral and simethicone ordered. Abdominal x-ray reviewed with the patient. It shows no visible acute abnormality. Suspect mild splenomegaly. Physical exam General: Alert, Oriented x3, Cooperative HEENT: Atraumatic, PERRLA, EOMI, Normocephalic Oral: No Gingival or Mucosal Lesions/ Ulcerations Neck: Supple, No JVD, Negative Carotid Bruits Chest wall/Lungs: Air entry diminished in bilateral lung bases. No crepitation/rhonchi Cardiovascular: Regular rate, Regular Rhythm, Open heart surgery. Bioprosthetic valve systolic murmur present. Abdomen: Bowel Sounds Present, Soft, Non Tender, Non-Distended : No dysuria. No renal angle tenderness. No suprapubic tenderness. Extremities: No edema, Capillary Refill Less than 3 Seconds Skin: No rashes, No breakdown Musculoskeletal: No Tenderness to Palpation of Joints or Extremities. Muscle strength 4/5 at knees and hip joint Neurological: Cranial nerves II-XII grossly intact, DTR 2+/4. No acute focal neurological deficit. Psych/Mental Status: Normal Affect, Appropriate. Assessment & Plan Assessment/Plan (1) Adult failure to thrive: PLAN: Plan 68-year-old gentleman was admitted with generalized weakness, physically deconditioned after recent surgery. Approximately a month ago patient underwent extensive aneurysm repair at [facility] # Adult failure to thrive -Seems to be multifactorial -No identifiable etiology noted on presentation -PT and OT feel that he should be placed at discharge -patient is amenable and case management is working on finding him a facility and pre-CERT pending Mild constipation with gas: Patient on senna S2 tablet twice daily. KUB shows nonspecific bowel gas schedule. Fecal matter on the descending and sigmoid colon. /5: Dulcolax 10 mg oral 1 dose and simethicone ordered. Patient is comfortable. Patient on PPI pantoprazole, 40 mg twice daily and famotidine. Famotidine discontinued. # Leukocytosis, etiology unclear. No acute signs or symptoms of infection. Leukocytosis improving. # Thoracic aortic aneurysm -Recent graft repair. 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 He also had open heart surgery with ascending aorta replacement and bioprosthetic valve replacement. # History of tobacco abuse -Remote -Continue ongoing cessation # DVT prophylaxis -Continue subcu enoxaparin Charges/Coding Visit Charges Inpatient E&M: 72362 Subs Hosp L2
[2024-06-18] MEDS: SimETHICONE 80 MG Chewable Tablet PO (19:58)
[2024-06-18] MEDS: Bisacodyl 5 MG Tablet 10 MG PO (19:58)
[2024-06-18] MEDS: Acetaminophen 325 MG Tablet 650 MG PO (19:58)
[2024-06-18] MEDS: Tamsulosin HCl 0.4 MG Capsule PO (19:59)
[2024-06-18] MEDS: Senna/Docusate Sodium 1 Tablet 2 TABLET PO (20:00)
[2024-06-18 20:36] VITALS: BP 112/81; PULSE 80; RESP 18; TEMP 36.7; O2SAT 95
[2024-06-19 02:15] VITALS: BP 128/84; PULSE 83; RESP 16; TEMP 36.6; O2SAT 95
[2024-06-19] MEDS: Levothyroxine 75 MCG Tablet PO (06:04)
[2024-06-19 07:06] LABS: Hematocrit 26.5 % (40-54); Hemoglobin 7.8 g/dL (13.0-16.5); Mean Corp Hgb Conc 29.4 g/dL (32-36); Mean Corpuscular Hgb 24.5 pg (27.0-32.0); Mean Corpuscular Volume 83.1 fL (80-94); Mean Platelet Vol. 10.5 fl (6.2-12.0); POSITIVE COUNT YES; POSITIVE MORPHOLOGY YES; Platelet Count 342 K/mm3 (150-450); RBC Distribution Width CV 15.8 % (11.6-14.6); Red Blood Count 3.19 M/mm3 (4.6-6.2); White Blood Count 13.2 K/mm3 (4.4-11.0)
[2024-06-19 07:10] LABS: Differential Indicated MANUAL DIFF
[2024-06-19 07:52] LABS: Eosinophil 3 % (0-5); Lymphocyte 31 % (19-41); Metamyelocyte 3 % (0-1); Monocyte 7 % (0-10); Myelocyte 3 % (0-0); Neutrophil-Segmented 53 % (47-70); Total Cells Counted 100 (MANUAL DIFF)
[2024-06-19 07:53] LABS: Platelet Estimate ADEQUATE (ADEQ); Red Cell Morphology NORM C+C NORMAL (NORM C&C)
[2024-06-19 07:54] LABS: Absolute Lymphocyte Count 4.09 X10^3/uL (0.83-4.51); Pathologist Review May foll
[2024-06-19 08:18] LABS: Anion Gap 12 (5-15); BUN 19 mg/dL (4-19); BUN/Creat Ratio 17.3 RATIO (10-20); Calcium,Total 9.3 mg/dL (7.6-11.0); Carbon Dioxide 22.8 mmol/L (21.0-32.0); Chloride 101 mmol/L (98-108); Creatinine, Serum 1.08 mg/dL (0.70-1.20); EST Glomerular Filtration Rate 74 (>60); Estimated Creatinine Clearance 65.63 ml/min (50-250); Glucose 120 mg/dL (70-99); Potassium 4.7 mmol/L (3.3-5.1); Sodium Level 135 mmol/L (133-145)
[2024-06-19 08:56] VITALS: BP 122/81; PULSE 95; RESP 18; TEMP 37; O2SAT 97
[2024-06-19] MEDS: Enoxaparin 40 MG/0.4 ML Syringe SC (09:02)
[2024-06-19] MEDS: Ensure Plus High Protein 120 ML LIQUID PO (09:02)
[2024-06-19] MEDS: Aspirin E.C. 81 MG Tablet 162 MG PO (09:02)
[2024-06-19] MEDS: Pantoprazole Sodium 40 MG Tablet PO (09:02)
[2024-06-19 09:03] VITALS: PULSE 95
[2024-06-19] MEDS: Metoprolol(XL)Succ 25 MG Tablet 75 MG PO (09:03)
[2024-06-19] MEDS: Senna/Docusate Sodium 1 Tablet 2 TABLET PO (09:03)
--- NOTE | 2024-06-19 09:48 | CASEMGMT ---
Discharge Planning Updates sent to Flakito Brownlee. Precert remains pending. Cheri Medina DC Planning Asst.
--- NOTE | 2024-06-19 11:11 | DCINST_ITS ---
Discharge Instructions Diet Discharge Diet: 2000 mg Sodium Diet DC O2, CPAP, BIPAP needs Home O2 Discharge instructions: No Dressing / Incision Discharge Activity: Return to Normal Activity Weight Bearing Status: Weight bearing as tolerated Dressing / Incision Call your doctor if you observe: Fever of 101 or Higher, Coldness, Increased Pain, Numbness or Tingling, Change in Color, Inability to urinate, Inability to have a bowel movement, Shortness of breath, Dizziness, Fainting spells, Swelling in the ankles, Chest pain, Prolonged hiccupping, Increased palpitations (irregular heartbeat) and Calf discomfort Follow Up Care When: IN 2 WEEKS Test Results: Test results from this visit will be discussed in further detail at your follow- up appointment, if applicable. Discharge Plan Admission Admit Date/Time: 06/12/24 15:42 Primary Reason for Your Visit: Adult failure to thrive Attending Provider: Ry Mattson Primary Care Provider: Leo Ye Consulting Providers: Dangelo Burks; Alexa Blanc; Dana Foote Instructions Additional Instructions / Restrictions: Patient stated he would like to follow-up with [place] vascular surgeon Discharge Orders/Prescriptions Prescriptions: New sennosides-docusate sodium [Stimulant Laxative Plus] 8.6-50 mg Tablet 2 tab PO BID Qty: 0 0RF Rx Instructions: Bpaa-xja-chmlojn. simethicone 80 mg Tablet,Chewable 80 mg PO PCHS Qty: 0 0RF Rx Instructions: Vldi-kxp-iqcqdiw. Take it for 2 weeks Continued aspirin [Adult Aspirin Regimen] 81 mg tablet,delayed release (DR/EC) 162 mg PO DAILY meclizine 25 mg tablet 25 mg PO TID PRN Patient Comments: TAKE 1 TABLET BY MOUTH THREE TIMES A DAY NEEDED levothyroxine 75 mcg tablet 75 mcg PO DAILY Rx Instructions: TAKE 1 (ONE) TABLET IN THE MORNING WITH BREAKFAST EXCEPT 1/2 TAB ON SUNDAYS tamsulosin 0.4 mg capsule 0.4 mg PO QHS Patient Comments: TAKE 1 CAPSULE BY MOUTH AT BEDTIME Fish Oil 300-500 mg capsule PO omeprazole 40 mg capsule,delayed release(DR/EC) 40 mg PO BID Qty: 60 2RF famotidine 40 mg tablet 40 mg PO QHS Qty: 30 2RF lovastatin 10 MG tablet 10 mg PO QHS [id number]-tay-kofgv-A7-okiphah-niwwxd [id number] mcg tablet 1 tab PO DAILY metoprolol succinate 25 mg tablet extended release 24 hr 75 mg PO DAILY Qty: 270 3RF Referrals / Follow Up: Leo Ye MD [Primary Care Provider] - Within 2 Weeks Dangelo Olmos MD [Med Staff - Active Staff] - (For history of abdominal aneurysm status post aortic bifemoral graft.) Disposition Disposition (needs filled in before D/C Order can be placed): Home Health Service
--- NOTE | 2024-06-19 12:18 | CASEMGMT ---
Addendum entered by Alma Fried 06/19/24 13:36: SW followed up with pt. Pt reports that he would like OP at [facility]. Pt dtr will be picking pt up. RNCM updated. Bedside nurse updated. NATHAN Hunter Original Note: Social Work- SW collaborated with hospitalist to provide information requested by Flakito ALBERTO. SW attempted to meet with pt to provide updates; pt sleeping and did not awaken when SW called name. SW to follow up with updates when pt awakes. Pt precert was denied. DEBORAH coordinated with physician who plans to discharge pt home. RNCM updated. SW met with pt to discuss HHC, outpatient therapy, and any additional needs pt feels that he has. Pt would like to speak with daughter and will follow up with SW. NATHAN Hunter
--- NOTE | 2024-06-19 12:53 | CASEMGMT ---
Discharge Planning Flakito Brownlee notified that pt intends to return home. Cheri Medina DC Planning Asst.
--- NOTE | 2024-06-19 13:02 | DS.PCM_ITS ---
Providers Date of Admission: 06/12/24 Date of Discharge: 06/19/24 Primary Care Physician: Dr. Leo Ye MD Reason For Visit: debility Diagnosis Discharge Diagnosis (1) Adult failure to thrive: Status: Acute Code(s): R62.7 - Adult failure to thrive Plan 68-year-old gentleman was admitted with generalized weakness, physically deconditioned after recent surgery. Approximately a month ago patient underwent extensive aneurysm repair at [facility] # Adult failure to thrive -Seems to be multifactorial -No identifiable etiology noted on presentation -PT and OT feel that he should be placed at discharge -patient is amenable and case management is working on finding him a facility and pre-CERT pending 06/19: His pre-CERT was rejected by the insurance company. Patient is being discharged home with home health. PT note reviewed. Patient had AAA graft, aortobifemoral graft a month ago. 6 clicks mobility score 22. Patient had 20 feet ambulated with contact-guard. PT recommended additional therapy. Mild constipation with gas: Patient on senna S2 tablet twice daily. KUB shows nonspecific bowel gas schedule. Fecal matter on the descending and sigmoid colon. 06/18: Dulcolax 10 mg oral 1 dose and simethicone ordered. Patient is comfortable. Patient on PPI pantoprazole, 40 mg twice daily and famotidine. Famotidine discontinued. # Leukocytosis, etiology unclear. No acute signs or symptoms of infection. Leukocytosis improving. 06/19: Patient had bowel movement. # Thoracic aortic aneurysm -Patient had thoracic aortic aneurysm in 2019. He had 3 times chest 2 point. # Peripheral vascular disease/abdominal aortic aneurysm -patient has deferred therapy at this time -Continued outpatient follow-up Patient had aortobifemoral graft for AAA in April 2024. food prep worker made me aware that he had endoluminal some complication probably leak/thrombosis?, Not very clear. It is mentioned in the psychiatric social worker, Amanda, pulled up note from [facility] where he had a CT scan. No official CT report or imaging for me to review. Patient advised to follow-up with the vascular surgeon. Initially he had AAA surgery in April [address] Dove but he does not want to follow through them. Advised follow-up with Dr. Dangelo Olmos, [place] vascular surgeon but he preferred to follow with [place] vascular surgeon. Patient denies any abdominal pain. Hemodynamically stable # History of stroke -Continue home aspirin # Hypothyroidism -Continue home levothyroxine # BPH with obstruction -Continue Flomax # GERD -Continue home medication # CAD/essential hypertension/hyperlipidemia -Continue home aspirin -Continue home statin -Continue home metoprolol 06/16: Patient had three-vessel CABG in the past. He also had open heart surgery with ascending aorta replacement and bioprosthetic valve replacement. # History of tobacco abuse -Remote -Continue ongoing cessation # DVT prophylaxis -Continue subcu enoxaparin Discharge medication reconciliation done. Discharge follow-up instructions completed. Discharge process discussed with the patient and all questions were answered to patient's satisfaction. Follow with PCP in 1 to 2 weeks Total time spent, exact 35 minutes on discharge meds reconciliation, examination, coordination of care with nurses and ancillary staff, review of imaging and blood test and discussion with the patient on follow-up instructions. Medications at Discharge Home Medications lovastatin 10 mg tablet 10 mg PO QHS 12/21/18 aspirin 81 mg tablet,delayed release (Adult Aspirin Regimen) 162 mg PO DAILY 01/13/19 metoprolol succinate 25 mg tablet,extended release 24 hr 75 mg (3 x 25 mg) PO DAILY #270 tabs 01/31/19 levothyroxine 75 mcg tablet 75 mcg PO DAILY 12/22/22 meclizine 25 mg tablet 25 mg PO TID PRN 12/22/22 cijjtjbr-zk-yijka 300 mcg-K 60 mcg-lycop 600 mcg-lutein 300 mcg tablet 1 tab PO DAILY 12/22/22 tamsulosin 0.4 mg capsule 0.4 mg PO QHS 12/22/22 famotidine 40 mg tablet 40 mg PO QHS #30 tabs 06/12/24 omega-3 fatty acids-fish oil 300 mg-500 mg capsule (Fish Oil) cap PO 06/12/24 omeprazole 40 mg capsule,delayed release 40 mg PO BID #60 caps 06/12/24 sennosides 8.6 mg-docusate sodium 50 mg tablet (Stimulant Laxative Plus) 2 tab PO BID #0 tabs 06/19/24 simethicone 80 mg chewable tablet 80 mg PO PCHS #0 tabs 06/19/24 Physical Exam Narrative Seen and examined. Patient had good bowel movement today. Does not have abdominal pain. Advised aueo-kfi-mhmjegr simethicone. Abdominal x-ray reviewed with the patient. It shows no visible acute abnormality. Suspect mild splenomegaly. Physical exam General: Alert, Oriented x3, Cooperative HEENT: Atraumatic, PERRLA, EOMI, Normocephalic Oral: No Gingival or Mucosal Lesions/ Ulcerations Neck: Supple, No JVD, Negative Carotid Bruits Chest wall/Lungs: Air entry diminished in bilateral lung bases. No crepitation/rhonchi Cardiovascular: Regular rate, Regular Rhythm, Open heart surgery. Bioprosthetic valve systolic murmur present. Abdomen: Bowel Sounds Present, Soft, Non Tender, Non-Distended : No dysuria. No renal angle tenderness. No suprapubic tenderness. Extremities: No edema, Capillary Refill Less than 3 Seconds Skin: No rashes, No breakdown Musculoskeletal: No Tenderness to Palpation of Joints or Extremities. Muscle strength 4/5 at knees and hip joint Neurological: Cranial nerves II-XII grossly intact, DTR 2+/4. No acute focal neurological deficit. Psych/Mental Status: Normal Affect, Appropriate. Medical Records Data Medical Nutrition Assessment Dietitian: Malnutrition Criteria Met Start: 06/13/24 14:25 Freq: Status: Active Protocol: Document 06/19/24 11:17 RMA (Rec: 06/19/24 11:17 RMA [id number]) Nutrition Malnutrition Evidence of Yes Malnutrition Exists Malnutrition (severe Acute Illness/Injury ): Evidenced By Suboptimal Energy Intake (Severe),Weight Loss (Severe) Clinical Problem Acute Disease or Injury Related Malnutrition Etiology Severe protein-calorie malnutrition in the context of acute on chronic disease related to inadequate oral/ energy intake due to debility/weakness Signs/Symptoms as evidenced by ~8% unintentional weight loss and oral intake meeting <75% of estimated nutritional needs x 1 month Status Active Problem Recommendation Dietitian Continue Cardiac diet as ordered. Recommendations/ Continue 120 ml ensure plus high protein 3 times per Changes day w/ medpass. Offer additional ONS as needed if meal intake declines. Obtain current weight for assessment and follow-up. Weight / BMI Weight Weight: 160 lb 11.472 oz Body Mass Index (BMI) 23.0 ABG / Lab / Microbiology Data 06/19/24 06:51 06/19/24 06:51 Laboratory: Laboratory Results - last 24 hr 06/15/24 10:01: Diff Path Review Reviewed 06/19/24 06:51: WBC 13.2 H, RBC 3.19 L, Hgb 7.8 L, Hct 26.5 L, MCV 83.1, MCH 24.5 L, MCHC 29.4 L, RDW Std Deviation 48.0 H, RDW Coeff of Antonia 15.8 H, Plt Count 342, MPV 10.5, Neut % (Auto) Not Reportable, Absolute Neuts (auto) 7.0, Absolute Lymphs (auto) 4.09, Total Counted 100, Neutrophils % (Manual) 53, Lymphocytes % (Manual) 31, Monocytes % (Manual) 7, Eosinophils % (Manual) 3, M etamyelocytes % 3 H, Myelocytes % 3 H, Diff Path Review August, Platelet Estimate ADEQUATE, RBC Morphology NORM C+C, Sodium 135, Potassium 4.7, Chloride 101, Carbon Dioxide 22.8, Anion Gap 12, BUN 19, Creatinine 1.08, Estim Creat Clear Calc 65.63, Est GFR (MDRD) Non-Af 74, BUN/Creatinine Ratio 17.3, Glucose 120 H, Calcium 9.3 Microbiology: Microbiology 06/12/24 12:33 Mucosa - Nose SARS-CoV-2, Influenza & RSV (PCR) - Final D/C Instructions Discharge Diet: 2000 mg Sodium Diet Weight Bearing Status: Weight bearing as tolerated Call your doctor if you observe: Fever of 101 or Higher, Coldness, Increased Pain, Numbness or Tingling, Change in Color, Inability to urinate, Inability to have a bowel movement, Shortness of breath, Dizziness, Fainting spells, Swelling in the ankles, Chest pain, Prolonged hiccupping, Increased palpitations (irregular heartbeat) and Calf discomfort DC O2, CPAP, BIPAP Needs Home O2 Discharge instructions: No When: IN 2 WEEKS Meaningful Use Info Meaningful Use Meaningful Use Diagnoses (Choose all that apply): None applicable Ischemic Stroke Statin Dosing Therapy Reference: STATIN DOSE THERAPY REFERENCE: * Patients > 75 years receive moderate or high dose statin therapy. * Patients 75 years or YOUNGER should receive HIGH intensity statin dose unless contraindicated. You will be required to document reason for non-treatment if statin daily dose does not meet guidelines. HIGH DOSE STATIN THERAPY DAILY Atorvastatin > than or = to 40 mg Rosuvastatin > than or = to 20 mg Amlodipine + Atorvastatin > than or = to 2.5/40 mg Ezetimibe + Simvastatin 10/80 mg Simvastatin 80mg Discharge Plan Admission Admit Date/Time: 06/12/24 15:42 Primary Reason for Your Visit: Adult failure to thrive Attending Provider: Ry Mattson Primary Care Provider: Leo Ye Consulting Providers: Dangelo Burks; Alexa Blanc; Dana Foote Instructions Additional Instructions / Restrictions: Patient stated he would like to follow-up with [place] vascular surgeon Discharge Orders/Prescriptions Prescriptions: New sennosides-docusate sodium [Stimulant Laxative Plus] 8.6-50 mg Tablet 2 tab PO BID Qty: 0 0RF Rx Instructions: Yqgx-oxc-svcooxp. simethicone 80 mg Tablet,Chewable 80 mg PO PCHS Qty: 0 0RF Rx Instructions: Dqwl-fjq-jrfwgpy. Take it for 2 weeks Continued aspirin [Adult Aspirin Regimen] 81 mg tablet,delayed release (DR/EC) 162 mg PO DAILY meclizine 25 mg tablet 25 mg PO TID PRN Patient Comments: TAKE 1 TABLET BY MOUTH THREE TIMES A DAY NEEDED levothyroxine 75 mcg tablet 75 mcg PO DAILY Rx Instructions: TAKE 1 (ONE) TABLET IN THE MORNING WITH BREAKFAST EXCEPT 1/2 TAB ON SUNDAYS tamsulosin 0.4 mg capsule 0.4 mg PO QHS Patient Comments: TAKE 1 CAPSULE BY MOUTH AT BEDTIME Fish Oil 300-500 mg capsule PO omeprazole 40 mg capsule,delayed release(DR/EC) 40 mg PO BID Qty: 60 2RF famotidine 40 mg tablet 40 mg PO QHS Qty: 30 2RF lovastatin 10 MG tablet 10 mg PO QHS we-ojn-wjewc-X3-qfhxcvv-ccsrzg [id number] mcg tablet 1 tab PO DAILY metoprolol succinate 25 mg tablet extended release 24 hr 75 mg PO DAILY Qty: 270 3RF Referrals / Follow Up: Leo Ye MD [Primary Care Provider] - Within 2 Weeks Dangelo Olmos MD [Med Staff - Active Staff] - (For history of abdominal aneurysm status post aortic bifemoral graft.) Disposition Disposition (needs filled in before D/C Order can be placed): Home Health Service Charges/Coding Visit Charges Inpatient E&M: 02094 Disch Hosp >30min
[2024-06-19 14:00] VITALS: BP 112/76; PULSE 87; RESP 18; TEMP 36.8; O2SAT 97
--- NOTE | 2024-06-19 14:18 | CASEMGMT ---
Addendum entered by Keila Rao 06/19/24 15:21: Confirmation received that fax to [facility] went through successfully. Addendum entered by Keila Rao 06/19/24 15:21: OP script for PT/OT faxed to [facility]. Addendum entered by Keila Rao 06/19/24 14:39: Pt agreeable to having PCP appt scheduled w/Dr Ye, as he is not sure when he will be able to get into see PCP @ [place]. He is also agreeable to having appt scheduled w/Dr Olmos. [place] Department Supervisor, Wendy, aware and is working on this. She will print these appts out and provide to pt before he leaves. Pt and dtr are aware. Daughter has arrived and is ready to take pt home. Addendum entered by Keila Rao 06/19/24 14:31: Pt informed FARHAT AGUILERA he prefers for appts to be on separate days. Call placed back to [facility] and spoke w/Anna. OT rescheduled for 06/25 @ 3 PM. PT remains on 06/24 @ 9 AM. DC plan updated and printed off. Pt made aware and provided w/printed appts. Original Note: FARHAT AGUILERA NOTE: Pt has a discharge order in. FARHAT AGUILERA notified by Alma CABRERA, that pt would like to go to OP therapy @ [facility]. RN ALE to room. Pt verifies this. He would like FARHAT AGUILERA to schedule appt for him. He states he plans to drive himself there and declines needing [facility] van transport. Call placed to [facility] and spoke w/Marlen. OP PT and OT scheduled for 06/24 @ 0800 and 0900. This was added to pt's discharge plan. Pt also made aware. Pt voices appreciation. He states he has a walker and shower chair @ home and declines needing any further DME. His daughter is on her way in to take him home. Donald HERNANDEZ RN, CM
[2024-06-30 10:36] LABS: Pathologist Review Reviewed
== END 2024-06-19 14:58 | disposition home health service (06) ==
LOC: ED 14:53 → MS3 16:15
PROVIDERS: Internal Medicine; Emergency Provider Emergency Medicine; PCP Family Medicine; Referring Provider Emergency Medicine; Visit Provider Internal Medicine
DX: R62.7 Adult failure to thrive (principal); I71.20 Thoracic aortic aneurysm, without rupture, unspecified; E44.1 Mild protein-calorie malnutrition; I10 Essential (primary) hypertension; R53.81 Other malaise; E78.5 Hyperlipidemia, unspecified; Z87.891 Personal history of nicotine dependence; R53.1 Weakness; Z95.3 Presence of xenogenic heart valve; I25.10 Atherosclerotic heart disease of native coronary artery without angina pectoris; Z79.890 Hormone replacement therapy; R53.83 Other fatigue; Z68.23 Body mass index [BMI] 23.0-23.9, adult; E03.9 Hypothyroidism, unspecified; Z79.82 Long term (current) use of aspirin; Z79.899 Other long term (current) drug therapy; I25.2 Old myocardial infarction; N40.1 Benign prostatic hyperplasia with lower urinary tract symptoms; Z66 Do not resuscitate; I73.9 Peripheral vascular disease, unspecified; N13.8 Other obstructive and reflux uropathy; K21.9 Gastro-esophageal reflux disease without esophagitis; K59.00 Constipation, unspecified; I71.40 Abdominal aortic aneurysm, without rupture, unspecified
CPT/HCPCS: 36415; 71045; 74019; 80048; 80053; 81001; 83690; 85025; 87631; 93005; 96361; 96372; 96374; 96376; 97110; 97116; 97161; 97166; 97530; 97535; 97802; 97803; 99221; 99284; G0378; J2405

== ENCOUNTER 2024-06-28 19:22 | Emergency (ER) | payer MEDICARE, SELFPAY ==
[2024-06-28 19:24] VITALS: BP 101/59; PULSE 51; RESP 16; TEMP 36.6; O2SAT 95
--- NOTE | 2024-06-28 19:40 | CT_ITS ---
PROCEDURE: CT ABDOMEN/PELVIS w IV CONT ONLY 06/28/2024 REASON FOR EXAM: EPIGADSTRIC ABD PAIN. KNOWN AAA. TECHNIQUE: Abdomen CT without and with intravenous contrast. Coronal and Sagittal reconstruction series were provided. PATIENT PREPARATION: Per protocol ORAL CONTRAST TYPE: None. AMOUNT: 0 mL CONTRAST: Isovue 370 VOLUME: 97mL One or more dose reduction techniques were used (e.g., Automated exposure control, adjustment of the mA and/or kV according to patient size, use of iterative reconstruction technique. RADIATION DOSE SUMMARY: CTDlvol: 17.74 MGy DLP: 761.94 mGycm COMPARISON: None. COMPARISON: None. FINDINGS: Lung bases: Unremarkable Liver: Unremarkable. Gallbladder: Surgically absent. Spleen: Unremarkable. Pancreas: Normal-size and attenuation. No masses. Adrenals: Unremarkable. Kidneys: Left renal cyst measuring 2.1 cm in diameter, midpole. Bladder: Unremarkable Reproductive Organs: Unremarkable. Bowel: Diverticulosis without signs of diverticulitis, sigmoid colon. Appendix: Unremarkable. Lymph nodes: No lymphadenopathy. Vasculature: Fusiform aneurysmal dilatation is noted involving the entire abdominal aorta. Eccentric thrombus is noted throughout the aortic aneurysm. These renal abdominal AA aorta measures proximally 7 cm in diameter. Diameter at the level measures mm. Diameter at the bifurcation measures 4.1 cm. No extraluminal extravasation. Dense atherosclerotic calcific disease of the common iliac arteries. Wall stent is noted in the right common iliac artery. [place] fusiform aneurysmal dilatation of the right common iliac artery measuring 2.5 cm. Distal portion of an aortic stent graft is seen just above the left hemidiaphragm. Peritoneum / Retroperitoneum: No ascites. No masses or other abnormalities. Anterior abdominal wall: Unremarkable. Bones: Unremarkable. CT/Abdomen/Pelvis W IV Cont ONLY IMPRESSION: 1. Fusiform aneurysmal dilatation of the entire abdominal aorta with eccentric thrombus. Measurements are documented above. 2. Distal thoracic aorta wall stent. 3. No evidence of extravasation from the visualized aneurysm. 4. 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 5. Diverticulosis. 6. Left renal cyst. 7. Status post cholecystectomy. Reading Location: [facility]
--- NOTE | 2024-06-28 19:42 | ED.VIS.GI ---
HPI HPI - GI History of Present Illness Chief Complaint: Abd Pain Informant: patient Abdominal Pain/Flank Pain Onset: Weeks and Month(s) Context: Gradual Onset Timing: Intermittent Quality: Aching Location: Epigastric Current Severity: Mild Maximum Severity: Moderate Worsened by: Nothing Relieved by: Nothing Nausea/Vomiting/Emesis GI Symptom: Negative for Nausea or Vomiting Diarrhea/Melena/Hematochezia GI Symptom: Negative for Diarrhea, Melena or Hematochezia Associated Symptoms Associated Symptoms: Negative for Dysuria, Frequency, Hematuria or Urgency Narrative Narrative: 68-year-old male history of prior AAA repair at , stroke, CAD with CABG prior cholecystectomy. Prior vocal cord injury with intubation. Patient presents today with abdominal pain epigastric. He says had this for weeks or months. He was hospitalized for it and never got a specific diagnosis. Denies a going on his back or his chest. He says normally worse at night around 11:30 PM till the morning. He has some reprieve between like 8 AM and noon. Then it progressively gets worse. Denies any vomiting or diarrhea. No melena or or hematemesis. No coffee-ground emesis. He does have nausea. He has extensive weight loss but he said that is been going on since he had surgery at for his aneurysm. This really has not specifically changed over the last few months. He is just is looking for an answer. Denies any difficulty urinating. Prior similar symptoms: Yes Recent Illness/Hospitalization: Yes [facility] ON LICENSE OF [facility] Medical History Adult failure to thrive Generalized weakness Stenosis of left subclavian artery Hypothyroid Iliac aneurysm COVID-19 AAA (abdominal aortic aneurysm) Aneurysm of subclavian artery Fatigue Vertigo BPH (benign prostatic hyperplasia) History of CVA (cerebrovascular accident) Former smoker Non-compliance Postoperative infection of wound of sternum Pneumothorax on left (12/09/18) H/O ventricular fibrillation (12/09/18) Hyperlipidemia Coronary arteriosclerosis in [place] artery Arteriosclerosis of bypass graft of coronary artery Carotid artery disease Right bundle branch block Nonrheumatic aortic (valve) insufficiency Ascending aortic aneurysm History of non-ST elevation myocardial infarction (NSTEMI) (12/05/06) Essential hypertension Acute cholecystitis Home Medications ?Medication ?Instructions ?Recorded ?Last Taken ?Type lovastatin 10 mg tablet 10 mg PO QHS 12/21/18 Unknown History aspirin 81 mg tablet,delayed 81 mg PO DAILY 01/13/19 Unknown History release (Adult Aspirin Regimen) metoprolol succinate 25 mg 75 mg (3 x 25 mg) PO DAILY #270 01/31/19 Unknown Rx tablet,extended release 24 hr tabs levothyroxine 75 mcg tablet 75 mcg PO DAILY 12/22/22 Unknown History [id number] 300 mcg-K 60 1 tab PO DAILY 12/22/22 Unknown History mcg-lycop 600 mcg-lutein 300 mcg tablet tamsulosin 0.4 mg capsule 0.4 mg PO QHS 12/22/22 Unknown History omega-3 fatty acids-fish oil 300 1 cap PO DAILY 06/12/24 Unknown History mg-500 mg capsule (Fish Oil) ferrous sulfate 325 mg (65 mg 325 mg PO DAILY 06/28/24 Unknown History iron) tablet pantoprazole 40 mg tablet,delayed 40 mg PO DAILY #60 tabs 06/28/24 Unknown Rx release (Protonix) Allergy/AdvReac Type Severity Reaction Status Date / Time codeine Allergy Vomiting Verified 06/28/24 19:28 acetaminophen (From Percocet) AdvReac Mild Nausea Verified 06/28/24 19:28 oxycodone (From Percocet) AdvReac Mild Nausea Verified 06/28/24 19:28 Family History Mother Cancer Father , @ age 40 Heart disease Sister Heart disease Stenting Grandmother Cancer Hip Brother Obesity Sister CAD (coronary artery disease) stents Surgical History Hx of heart artery stent Sternal wound dehiscence (12/21/18) History of aortic aneurysm repair (12/09/18) Hx of ascending aorta replacement (12/10/18) History of left heart catheterization (12/06/18) S/P CABG x 3 S/P cholecystectomy History of tonsillectomy H/O right inguinal hernia repair Social History household members: none Smoking Status: Former smoker alcohol intake: never substance use type: does not use ROS ROS ED ROS Narrative Abdominal pain. Nausea. Weight loss. Constitutional Constitutional ED: Denies chills or fever(s) ENT ENT ED: Denies ear pain Cardiovascular Cardiovascular: Denies chest pain Respiratory/Chest Respiratory/Chest: Denies cough Gastrointestinal Gastrointestinal: Reports abdominal pain and nausea; Denies constipation, diarrhea, melena or vomiting Genitourinary Genitourinary ED: Denies dysuria or hematuria Musculoskeletal Musculoskeletal: Denies arthralgias or back pain Integumentary Denies abscess or Abrasions Neurologic Neurologic: Denies headache(s) Psychiatric Psychiatric: Denies anxiety or depression Endocrine Endocrinology: Denies polydipsia Hematologic/Lymphatic Hematologic/Lymphatic: Denies easy bleeding, easy bruising or lymphadenopathy Allergic/Immunologic Allergic/Immunologic ED: Denies mouth swelling, tongue swelling or urticaria EXAM Physical Exam Narrative Exam Narrative: 68-year-old male sitting upright in bed. Vital signs are stable afebrile. He is in no acute distress. H EENT exam pupils round react light. Moist mucous membranes. He has a low voice from a prior vocal cord injury. Neck nontender. Lungs clear to auscultation. Heart regular rhythm rate about 55-60. No murmur. Chest wall and ribs are nontender. Abdomen is soft, nontender, not stented. No peritoneal signs. No pulsatile mass. No pain to right upper or right lower quadrant. No hernia. No obstruction or distention. Soft. Positive bowel sounds. Const Vital Signs: 06/28/24 19:24 06/28/24 21:30 Temperature 97.9 F Temperature Source Temporal Pulse Rate 51 L 83 Respiratory Rate 16 18 Blood Pressure 101/59 L 112/69 Blood Pressure Mean 73 83 Pulse Ox 95 98 Oxygen Delivery Method Room Air Room Air Positive well nourished and well developed; Negative for obese, cachectic, contractures or unkempt General Appearance ED: well developed and NAD; Negative for unkempt, cachectic or contractures Nutritional Appearance: Negative for cachectic or obese HEENT Reports moist mucous membranes normocephalic and atraumatic; Negative for trauma or tenderness Eyes PERRL and EOMs intact bilaterally General Eye ED: Negative for pale conjunctiva or scleral icterus Neck no lymphadenopathy, supple and no JVD Resp normal respiratory effort and clear to auscultation bilaterally Psych Appearance: Negative for unkempt MDM MDM MDM Narrative Medical decision making narrative: 68-year-old male with acute on chronic abdominal pain. CAT scan and labs are pending. Differential diagnosis would include gastritis, AAA leak, pancreatitis, etc. Repeat exam at 9:51 PM patient doing well. Abdomen benign. He said the GI cocktail took his pain from 10 to a 4. History and exam this may be gastritis. To be placed on Protonix 40 mg a day. Follow-up with his primary care physician Dr. Crispin Swann and if not improving he can follow-up with either GI or general surgery for possible upper endoscopy. Patient is comfortable with the plan of being discharged to home. Lab Data Attestation: I reviewed the patient's lab results. Lab results narrative: CBC shows an elevated white count of 16.6 which she has had elevated white counts multiple times in the past. H&H 8.8 and 29 again is consistent baseline anemia. Platelets 357. Electrolytes show gap 12. BUN and creatinine 21.1. Glucose 115. Liver enzymes normal. Lipase normal at 29. Labs: Laboratory Results - last 24 hr 06/28/24 19:53 WBC 16.6 H RBC 3.49 L Hgb 8.8 L Hct 29.5 L MCV 84.5 MCH 25.2 L MCHC 29.8 L RDW Std Deviation 51.4 H RDW Coeff of Antonia 16.9 H Plt Count 357 MPV 10.4 Immature Gran % (Auto) 1.600 H Neut % (Auto) 66.6 Lymph % (Auto) 19.3 [place] % (Auto) 8.9 Eos % (Auto) 3.1 Baso % (Auto) 0.5 Absolute Neuts (auto) 11.0 H Absolute Lymphs (auto) 3.19 Nucleated RBC % 0 Sodium 136 Potassium 4.4 Chloride 100 Carbon Dioxide 23.4 Anion Gap 12 BUN 20 H Creatinine 1.10 Estim Creat Clear Calc 64.52 Est GFR (MDRD) Non-Af 72 BUN/Creatinine Ratio 18.1 Glucose 115 H Calcium 10.1 Total Bilirubin 0.37 AST 17 ALT 23 Alkaline Phosphatase 82 Total Protein 7.6 Albumin 3.6 Globulin 4.0 Albumin/Globulin Ratio 0.9 Lipase 29 Radiography Diagnostic Testing: Clinical Impression(s) from Imaging Studies Abdomen/Pelvis CT 06/28/24 19:40 IMPRESSION: 1. Fusiform aneurysmal dilatation of the entire abdominal aorta with eccentric thrombus. Measurements are documented above. 2. Distal thoracic aorta wall stent. 3. No evidence of extravasation from the visualized aneurysm. 4. 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 5. Diverticulosis. 6. Left renal cyst. 7. Status post cholecystectomy. Reading Location: [facility] Discharge Plan Triage Chief Complaint: Abd Pain ED Provider: Luke Wallace Dx/Rx/DC Orders Clinical Impression: Abdominal pain, Gastritis Instructions: Abdominal Pain, ED Gastritis (Adult) Prescriptions: New pantoprazole [Protonix] 40 mg tablet,delayed release (DR/EC) 40 mg PO DAILY Qty: 60 0RF No Action aspirin [Adult Aspirin Regimen] 81 mg tablet,delayed release (DR/EC) 81 mg PO DAILY levothyroxine 75 mcg tablet 75 mcg PO DAILY Rx Instructions: TAKE 1 (ONE) TABLET IN THE MORNING WITH BREAKFAST EXCEPT 1/2 TAB ON SUNDAYS tamsulosin 0.4 mg capsule 0.4 mg PO QHS Patient Comments: TAKE 1 CAPSULE BY MOUTH AT BEDTIME Fish Oil 300-500 mg capsule 1 cap PO DAILY lovastatin 10 MG tablet 10 mg PO QHS [id number] mcg tablet 1 tab PO DAILY ferrous sulfate 325 mg (65 mg iron) tablet 325 mg PO DAILY metoprolol succinate 25 mg tablet extended release 24 hr 75 mg PO DAILY Qty: 270 3RF Primary Care Provider: Leo Ye Referrals: Leo Ye MD [Primary Care Provider] - 1 Week if not improving Jonathan Perry DO [Med Staff - Active Staff] - 1 Week if not improving Activity Restrictions/Additional Instructions: Your pain may be caused by gastritis which is inflammation of your stomach. Avoid ibuprofen because it would irritate your stomach more. Start the medication prescribed you Protonix which would help heal your stomach lining. You can take 1 or take it twice a day. Follow-up with your doctor if not improving. If not improving they may have to get you to see a sr. payroll processor or general surgeon to do endoscopy to look inside your lower esophagus and stomach. Print Language: Somali Disposition Disposition: Home, Self Care
[2024-06-28 19:45] VITALS: BMI 24.1
[2024-06-28] MEDS: Pantoprazole Sodium 40 MG Tablet PO (19:52)
[2024-06-28] MEDS: Mag Hydrox/Al Hydrox/Simeth 30 ML UDC PO (19:52)
[2024-06-28] MEDS: Lidocaine 2% Viscous15 ML UDC 15 ML PO (19:52)
[2024-06-28 20:01] LABS: Absolute Lymphocyte Count 3.19 X10^3/uL (0.83-4.51); Basophil# 0.09 X10^3/uL; Basophil% 0.5 % (0-1); Eosinophil# 0.51 X10^3/uL; Eosinophils% 3.1 % (0-5); Hematocrit 29.5 % (40-54); Hemoglobin 8.8 g/dL (13.0-16.5); Lymphocyte # 3.19 X10^3/ul (0.83-4.51); Lymphocyte % 19.3 % (19-41); Mean Corp Hgb Conc 29.8 g/dL (32-36); Mean Corpuscular Hgb 25.2 pg (27.0-32.0); Mean Corpuscular Volume 84.5 fL (80-94); Mean Platelet Vol. 10.4 fl (6.2-12.0); Monocyte# 1.48 X10^3/uL; Monocyte% 8.9 % (0-10); NRBC Flagged by Analyzer 0 % (0-5); Neutrophil # 11.03 X10^3/uL (2.7-7.7); Neutrophil % 66.6 % (47-70); Platelet Count 357 K/mm3 (150-450); RBC Distribution Width CV 16.9 % (11.6-14.6); RBC Distribution Width SD 51.4 fl (35.1-43.9); Red Blood Count 3.49 M/mm3 (4.6-6.2); White Blood Count 16.6 K/mm3 (4.4-11.0)
[2024-06-28 20:31] LABS: ALB/GLOB Ratio 0.9 RATIO (0.9-2.4); AST(SGOT) 17 U/L (<=37); Alanine Aminotransfer ALT/SGPT 23 U/L (<=46); Albumin, Serum 3.6 g/dL (3.4-4.8); Alkaline Phosphatase 82 U/L (40-129); Anion Gap 12 (5-15); BUN 20 mg/dL (4-19); BUN/Creat Ratio 18.1 RATIO (10-20); Calcium,Total 10.1 mg/dL (7.6-11.0); Carbon Dioxide 23.4 mmol/L (21.0-32.0); Chloride 100 mmol/L (98-108); EST Glomerular Filtration Rate 72 (>60); Estimated Creatinine Clearance 64.52 ml/min (50-250); Glucose 115 mg/dL (70-99); Lipase 29 U/L (13-75); Potassium 4.4 mmol/L (3.3-5.1); Protein, Total 7.6 g/dL (5.9-8.4); Sodium Level 136 mmol/L (133-145); Total Bilirubin 0.37 mg/dL (0.00-1.30)
[2024-06-28 21:30] VITALS: BP 112/69; PULSE 83; RESP 18; O2SAT 98
--- NOTE | 2024-06-28 21:39 | ED.RN ---
This RN went into the patient's room and the patient requested a bag to throw up in. As the patient was vomiting, this RN asked the physician for nausea medication, 4mg of Zofran was ordered. This RN went to medicate the patient, however the patient states I don't think it is necessary, I threw up already, so no I don't want the medication. MD notified.
[2024-06-28 22:09] VITALS: BP 117/68; PULSE 70; RESP 18; TEMP 36.7; O2SAT 98
== END 2024-06-28 22:10 | disposition home or self-care (01) ==
PROVIDERS: Emergency Provider Emergency Medicine; PCP Family Medicine; Visit Provider Emergency Medicine
DX: K29.70 Gastritis, unspecified, without bleeding (principal); D64.9 Anemia, unspecified; G89.29 Other chronic pain; I10 Essential (primary) hypertension; E03.9 Hypothyroidism, unspecified; E78.5 Hyperlipidemia, unspecified; I35.1 Nonrheumatic aortic (valve) insufficiency; I25.2 Old myocardial infarction; I25.10 Atherosclerotic heart disease of native coronary artery without angina pectoris; I71.40 Abdominal aortic aneurysm, without rupture, unspecified; N40.0 Benign prostatic hyperplasia without lower urinary tract symptoms; Z95.2 Presence of prosthetic heart valve; Z95.1 Presence of aortocoronary bypass graft; Z90.49 Acquired absence of other specified parts of digestive tract; Z86.73 Personal history of transient ischemic attack (TIA), and cerebral infarction without residual deficits; Z79.82 Long term (current) use of aspirin; Z98.890 Other specified postprocedural states; Z79.899 Other long term (current) drug therapy; Z79.890 Hormone replacement therapy; Z87.891 Personal history of nicotine dependence
CPT/HCPCS: 74177; 80053; 83690; 85025; 99283; Q9967; A4216; J2405

== ENCOUNTER 2024-07-08 13:51 | Outpatient (RCR) | payer MEDICARE, SELFPAY ==
--- NOTE | 2024-07-09 12:53 | HP.OTEVAL ---
Patient's Visit Information Visit Information Visit Information: SPRING AGUAYO is a 68 year old M, referred to Occupational Therapy by Dr. Ry Mattson MD, with a diagnosis of debility. Date of Evaluation: 07/08/24 Occupational Therapist: Ana Wheat, OTR/L, CHT Subjective Subjective: This 68 year old male was seen for OT eval with dx of debility- pt states he underwent sx the end of Apr for abdominal aneurisms- pt states this was a sx prior to a large aortic aneurysm. pt states he lost 40# while recovering from sx. pt states prior to sx he was very active worked part-time at [employer] and mtg his home without difficulty. pts dtr and granddaughter do help pt at this time ambulates ww pt states he would like to get stronger so normal bathing- dressing task are not so fatiguing. ADLs Comments: pt states he has split level home- full bath is on 3rd floor pt states he has bedroom in basement- half bath sponge bathing due to not being able to do all the stairs ROM ROM Comments: pt demo ROM WNL Strength Shoulder: right 4/5 left 4/5 Dry Cleaning Attendant: right 85# left 85# Lateral Pinch: right 20# left 22# Tripod Pinch: right 22# left 22# Strength Comments: pt demo with a decline in BUE endurance for safe self mtg. pt has aortic aneurysm and will be limited with weight he can lift. Quick DASH-Disab of Arm,Shoulder& Hand Quick DASH Score: 35.0000 Goals Goal:: pt will demo a increase in BUE strength fit 2 testing at 15# or greater of UB to increase pts iND with ADLs by d.c Goal:: pt will demo understanding of using ad. eq. for energy conservation by 2nd session to decrease pts daily fatigue with adls . Goal:: pt will report he has returned to going to 3rd floor for shower with use of shower chair as needed to conserve energy by dc Rehabilitation General Assessment: pt demo with decrease in UB strength and endurance limiting his IND with ADLs and IADLs. Pt would benefit from skilled OT services 1-2x week for 4 weeks to ensure pt makes gains for return of safe functional ADLs. Today therapist ed. pt on UB ex. to improve endurance and strength- pt demo understanding. pt agrees to POC. Rehabilitation Potential: Good Anticipated Interventions Anticipated Interventions: Strengthening, Joint Protection/Energy Conservation, Ergonomic Education, Education re assistive Equipment, Education re Diagnosis and Home Program Visit Plan Frequency: 1-2x /Week Duration: 4-6 Weeks TEXT: Thank you for the opportunity to evaluate your patient. For Medicare and Medicare HMO plans, please review the plan of care and approve it. It will need to be FAXED BACK to us at [phone] for Medicare purposes. Please let me know if there are questions or concerns regarding this plan of care. Physician Signature: Date:
--- NOTE | 2024-12-31 13:10 | HP.OT.NRP ---
Patient Information Patient Information: SPRING AGUAYO was seen in my office for initial evaluation on 07/08/24. The following Plan of Care was established for this patient: POC Established Initial Frequency: 1-2x /Week Initial Duration: 4-6 Weeks Anticipated Interventions Anticipated Interventions: Strengthening, Joint Protection/Energy Conservation, Ergonomic Education, Education re assistive Equipment, Education re Diagnosis and Home Program Last Seen Last Seen: This patient was last seen in our office 07/08/24. Pertinent comments regarding their Occupational therapy will appear below: no further apts have been scheduled and due to time lapse in services pt is d/c. At this point I will be discontinuing this patient from occupational therapy. I would be happy to see this patient again in the future if found appropriate by the physician. Thank you! Ana Wheat, OTR/L, CHT
== END 2024-07-08 19:00 | disposition home or self-care (01) ==
LOC: OT 13:51
PROVIDERS: PCP Family Medicine; Referring Provider Internal Medicine; Visit Provider Internal Medicine
DX: R53.81 Other malaise (principal)
CPT/HCPCS: 97161; 97166

== ENCOUNTER → 2024-07-23 | Outpatient (CLI) | payer MEDICARE, SELFPAY ==
--- NOTE | 2024-07-23 16:54 | RAD_ITS ---
PROCEDURE: CHEST PA AND LATERAL 07/23/2024 REASON FOR EXAM: PAIN, left-sided posterior rib pain after coughing last night. TECHNIQUE: Frontal and lateral views of the chest. COMPARISON: Chest radiograph 06/12/2024. FINDINGS: Hardware: Prior median sternotomy, aortic valve replacement and complex thoracic aortic endograft with grafting of the right common carotid and left subclavian arch vessels. Heart: The heart size is normal. Mediastinum: The mediastinal contour is stable. Lungs: Small area of focal consolidation within the posterior right lower lung. No pleural effusion or pneumothorax. Bones: Degenerative changes are identified within the thoracic spine. RAD/Chest PA and Lateral IMPRESSION: Small focal consolidation within the right lower lung, which may represent atel ectasis/scarring, however pneumonitis/pneumonia can not be ruled out. Clinical and laboratory correlation recommended. Otherw ise stable chest radiograph. Reading Location: [id number]
--- NOTE | 2024-07-23 16:54 | RAD_ITS ---
EXAM: Left chest wall radiographs CLINICAL HISTORY: Chest pain COMPARISON: CT chest, abdomen and pelvis 11/09/2022 TECHNIQUE: Two-view radiograph left chest wall. FINDINGS: Stable postoperative changes descending thoracic aortic stent and aortic valve. Status post median sternotomy. No acute osseous abnormality. Linear opacities in the imaged lung base, compatible with subsegmental atelectasis. Left axillary calcification, unchanged. RAD/Ribs Unil 2V No CXR IMPRESSION: No acute findings. Reading Location: [facility]
== END | disposition home or self-care (01) ==
LOC: MTRAD 16:54
PROVIDERS: PCP Family Medicine; Referring Provider Nurse Practitioner Family; Visit Provider Nurse Practitioner Family
DX: R07.81 Pleurodynia (principal)
CPT/HCPCS: 71046; 71100

== ENCOUNTER → 2024-08-05 | Outpatient (CLI) | payer MEDICARE, SELFPAY ==
--- NOTE | 2024-08-05 13:59 | RAD_ITS ---
EXAM: Chest and left rib radiographs CLINICAL HISTORY: Pain COMPARISON: 07/24/2019 TECHNIQUE: Five views of the chest and left ribs FINDINGS: Heart size is within normal limits. Aortic arch and descending thoracic aortic stent. Descending thoracic aortic aneurysm. No focal consolidation, sizeable pleural effusion or pneumothorax. No radiographic evidence of acute displaced rib fracture. RAD/Ribs Uni Min 3V w/PA Chest IMPRESSION: No acute thoracic process. If there is persistent clinical concern for nondisp laced rib fracture, CT is most sensitive. Reading Location: [facility]
== END | disposition home or self-care (01) ==
LOC: MTRAD 13:56
PROVIDERS: PCP Family Medicine; Referring Provider Family Medicine; Visit Provider Family Medicine
DX: R07.81 Pleurodynia (principal)
CPT/HCPCS: 71101

== ENCOUNTER → 2024-09-04 | Outpatient (CLI) | payer MEDICARE, SELFPAY ==
[2024-09-04 15:33] LABS: Hematocrit 31.3 % (40-54); Hemoglobin 9.4 g/dL (13.0-16.5); Mean Corpuscular Hgb 24.9 pg (27.0-32.0); Mean Corpuscular Volume 82.8 fL (80-94); Mean Platelet Vol. 10.9 fl (6.2-12.0); Platelet Count 306 K/mm3 (150-450); RBC Distribution Width CV 15.1 % (11.6-14.6); RBC Distribution Width SD 45.8 fl (35.1-43.9); RET-HE 26.4 pg (30-35); Red Blood Count 3.78 M/mm3 (4.6-6.2); Reticulocyte Count 1.01 % (0.5-1.5); White Blood Count 11.9 K/mm3 (4.4-11.0)
[2024-09-04 18:17] LABS: Ferritin 391 ng/mL (37-417); Iron 17 ug/dL (65-175); Thyroid Stim Hormone (TSH) 0.771 uIU/mL (0.300-4.200)
== END | disposition home or self-care (01) ==
LOC: MFPLAB 12:07
PROVIDERS: PCP Family Medicine; Referring Provider Family Medicine; Visit Provider Family Medicine
DX: D64.9 Anemia, unspecified (principal); E03.9 Hypothyroidism, unspecified
CPT/HCPCS: 36415; 82728; 83540; 84439; 84443; 85027; 85045

== ENCOUNTER → 2024-10-14 | Outpatient (CLI) | payer MEDICARE, SELFPAY ==
--- NOTE | 2024-10-14 12:21 | CT_ITS ---
PROCEDURE: SOFT TISSUE NECK WITH CONTRAST 10/14/2024 REASON FOR EXAM: PARALYSIS OF VOCAL CORDS TECHNIQUE: SOFT TISSUE NECK WITH CONTRAST CONTRAST: 100 cc Isovue-300 One or more dose reduction techniques were used (e.g., Automated exposure control, adjustment of the mA and/or kV according to patient size, use of iterative reconstruction technique). RADIATION DOSE SUMMARY: CTDlvol: 55 mGy DLP: 970.83 mGycm COMPARISON: 7 11/02/2022 FINDINGS: There is a large mass underneath the aorta which measures soft tissue density and could conceivably represent mural thrombus from the previous aneurysm treated with endograft. No arterial contrast extravasation. The orbits appear symmetric. Normal nasopharynx is present. No parotid asymmetry is known. The oral cavity and submandibular glands are unremarkable. No palatine tonsil asymmetry. There is asymmetry of the vocal folds with medial ization of the left cord compared with the right but enlargement of the right piriform sinus compared with the left. Suspect the paralysis is of the left cord. There is no adenopathy. CT/Soft Tissue Neck WITH Contrast IMPRESSION: The patient is likely left-sided vocal cord paralysis is caused by abnormal sof t tissue in the region of the left recurrent laryngeal nerve in the chest, related to a thoracic aneurysm treated with a josh or endograft. The area of hypodense soft tissue would appear to represent nonenhancing mural thrombus. Correlate with chest CT . [facility]
--- NOTE | 2024-10-14 12:21 | CT_ITS ---
EXAM: CT Chest With Intravenous Contrast CLINICAL INDICATION: DYSPHONIA TECHNIQUE: Axial computed tomography images of the chest with intravenous contrast. This CT exam was performed using one or more of the following dose reduction techniques: automated exposure control, adjustment of the mA and/or kV according to patient size, and/or use of iterative reconstruction technique. COMPARISON: No relevant prior studies available. FINDINGS: LUNGS AND PLEURAL SPACES: Lung emphysema. No mass. No consolidation. No significant effusion. No pneumothorax. HEART: Unremarkable. No cardiomegaly. No significant pericardial effusion. No significant coronary artery calcifications. BONES/JOINTS: Unremarkable. No acute fracture. SOFT TISSUES: Unremarkable. VASCULATURE: Descending aortic aneurysm measuring up to 7.1 cm in diameter with indwelling aortic stent graft. The distal aspect appears to contain hyperdensity in the aortic aneurysm sac. Endoleak can not be excluded. This is visualized in the axial image 94. LYMPH NODES: Unremarkable. No enlarged lymph nodes. CT/Chest WITH Contrast IMPRESSION: 1. Descending aortic aneurysm measuring up to 7.1 cm in diameter with indwelli ng aortic stent graft. The distal aspect appears to contain hyperdensity in the aortic aneurysm sac. Endoleak can not be exclud ed. This is visualized in the axial image 94. 2. Lung emphysema. Reading Location: [facility]
[2024-10-14 12:45] LABS: CREATININE FINGERSTICK 1.2 mg/dL (0.70-1.30); EGFR FINGERSTICK > 60.0000 mL/min (>60)
== END | disposition home or self-care (01) ==
LOC: CT 12:16
PROVIDERS: PCP Family Medicine; Referring Provider Otolaryngology Otolaryngology/Facial Plastic Surgery; Visit Provider Otolaryngology Otolaryngology/Facial Plastic Surgery
DX: J38.01 Paralysis of vocal cords and larynx, unilateral (principal); R49.0 Dysphonia
CPT/HCPCS: 70491; 71260; Q9967

== ENCOUNTER → 2025-02-18 | Outpatient (CLI) | payer MEDICARE, SELFPAY ==
[2025-02-18 15:23] LABS: Hematocrit 32.7 % (40-54); Hemoglobin 9.8 g/dL (13.0-16.5); Immature Granulocytes Count 0.050 X10^3/uL (0.0-0.0); Mean Corp Hgb Conc 30.0 g/dL (32-36); Mean Corpuscular Volume 83.4 fL (80-94); Mean Platelet Vol. 10.7 fl (6.2-12.0); NRBC Flagged by Analyzer 0 % (0-5); Platelet Count 237 K/mm3 (150-450); RBC Distribution Width CV 15.3 % (11.6-14.6); RBC Distribution Width SD 46.5 fl (35.1-43.9); Red Blood Count 3.92 M/mm3 (4.6-6.2); White Blood Count 8.6 K/mm3 (4.4-11.0)
[2025-02-18 18:41] LABS: Iron 32 ug/dL (65-175)
== END | disposition home or self-care (01) ==
LOC: MFPLAB 13:37
PROVIDERS: PCP Family Medicine; Visit Provider Family Medicine
DX: D64.9 Anemia, unspecified (principal); E03.9 Hypothyroidism, unspecified
CPT/HCPCS: 36415; 83540; 84439; 84443; 85025